=== PATIENT | female | born 1940 | race Caucasian/White ===

== ENCOUNTER 2016-12-26 10:00 | Outpatient (CLI) | payer MEDICARE ==
[~2016-12-26] VITALS: Ht 154.9 cm; Wt 88.9 kg
[~2016-12-26 10:00] MED LIST: ALPR0.2550 PO; AMIT10TA6 PO; ASP81CT PO; ATOR80TA PO; B12 INJECTION SQ; BACL10TA PO; CARV6.252 PO; CLOP75TA PO; CPR500T PO; DCS100C PO; DICY20TA10 PO; EZET10TA5 PO; FAMO20TA5 PO; FURO40TA4 PO; GABA100T PO; HC A28.3 PR; HYDR-229 PO; HYDR1TAB86 PO; LORA10TA2 PO; MELO-195 PO; NITR-65 PO; OMG1KC PO; OXYC-272 PO; OXYC1TAB25 PO; PNT40TEC PO; POLY119P PO; POTA10CA43 PO; PRED20TA PO; SERT100T PO; SPIR25TA3 PO; TOPI25TA2 PO; VITA1TAB22 PO
[2016-12-26] MEDS ORDERED: HYDR-3820 PO (10:21)
[2016-12-26] MEDS ORDERED: FURO40TA4 PO (10:21)
[2016-12-26] MEDS ORDERED: CANA100T PO (10:21)
[2016-12-26] MEDS ORDERED: CLOP75TA28 PO (10:21)
[2016-12-26] MEDS ORDERED: PANT40TA3 PO (10:21)
[2016-12-26] MEDS ORDERED: ALPR0.254 PO (10:21)
== END 2016-12-26 10:27 ==
LOC: PREOP 10:00
PROVIDERS: ATTEND Internal Medicine
DX: Z01.818 Encounter for other preprocedural examination (principal); R19.7 Diarrhea, unspecified; R10.9 Unspecified abdominal pain

== ENCOUNTER 2016-12-28 08:35 | Day surgery (SDC) | payer MEDICARE ==
[~2016-12-28] VITALS: Ht 154.9 cm; Wt 88.9 kg
--- NOTE | 2016-12-28 07:34 | HISTORY AND PHYSICAL ---
DATE OF SERVICE: DATE OF ADMISSION: 12/28/2016 HISTORY OF PRESENT ILLNESS: The patient is a 76-year-old white female, referred by Dr. Wong for consideration for colonoscopy. She reports that since September about every three weeks usually occurring on a Saturday she will have the onset of abdominal pain, tends to be lower and bilateral in nature and colicky in quality. She is not aware of any associated significant distention, but usually within an hour of the onset of her symptoms, she will then have multiple loose stools with relief of her abdominal pain. It is not associated with chills or fever. She cannot associate it with any specific dietary change. It last happened 2-1/2 weeks ago and she had not had anything for her evening meal, it tends to occur in the early to later evening and occasionally it will awaken her from sleep. There have been no medication changes associated and she denies melena, bright red blood per rectum, any associated hives, shortness of breath or chest discomfort. FAMILY HISTORY: She is not aware of any family history for allergic symptoms or GI tract malignancy. PAST MEDICAL HISTORY: Significant for coronary artery disease. She underwent stent placement in 2002 and has had no subsequent trouble. She has been on clopidogrel ever since. She has history of hyperlipidemia, hypertension and type 2 diabetes mellitus. She reports that her weight has been stable. I did perform an EGD on her little over 5 years ago. Her weight is down 6 pounds since that time and EGD evaluation revealed a small to moderate size hiatal hernia with erosive esophagitis without evidence for overt Haines's change. She has no associated epigastric discomfort, heartburn sensation or dysphagia. 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 She has a 40+ pack year smoking history, but quit in 2009. She has a past history of heavy drinking, but also quit in 2009. PAST SURGICAL HISTORY: Significant for right carotid endarterectomy only. She has had no abdominal surgery. PHYSICAL EXAMINATION: GENERAL: Reveals an obese white female, who appears to be in no acute distress. SKIN: Evaluation is pertinent for malar erythema that extends to the lower forehead, it spares the chin. There are no associated pustules or nodularity. It does naty and has been reportedly chronic for the past several years. MUSCULOSKELETAL: Joint evaluation reveals no evidence for arthralgia or synovitis. CHEST: Clear. CARDIOVASCULAR: Regular rate and rhythm without murmur, S3 or S4. ABDOMEN: Soft, supple without mass, organomegaly or tenderness. EXTREMITIES: Reveal no cyanosis, clubbing or edema. ASSESSMENT: For further investigation of episodic epigastric pain followed by diarrhea, she is set up for colonoscopy on 12/28/2016. Prep instructions with split dose Colyte were given and questions were answered. We did discuss the possibility of an allergic type reaction. She was advised as she reports she is due to have recurrent symptoms this weekend, to try Claritin 10 mg q.a.m. this Saturday, Saturday and Saturday. She will be holding clopidogrel 7 days prior to her procedure, continuing her other medications unchanged. With today's patient evaluation and review of her electronic medical record little over 45 minutes of care time was spent not including dictation time. Another 15 minutes of staff time in going over prep instructions during the procedure was performed as well. I thank you for the referral of this pleasant lady. Job ID: [id number] DocumentID: [id number] Dictated Date: 12/19/2016 19:53:21 Casting Machine Control Board Operator Date: 12/19/2016 20:41:01 Dictated By: HEATHER JEAN MD MTDD
[~2016-12-28 08:35] MED LIST changes: +ALPR0.254 PO; +CANA100T PO; +CLOP75TA28 PO; +HYDR-3820 PO; +PANT40TA3 PO
[2016-12-28] MEDS ORDERED: 1/2 NS IV SOLUTION 1,000 ML IV STA (08:38)
--- NOTE | 2016-12-28 08:43 | Pre-Op Note & Conscious Sedat ---
Pre-Operative Progress Note H&P Reviewed The H&P was reviewed, patient examined and no changes noted. Date H&P Reviewed: Dec 28, 2016 Time H&P Reviewed: 08:43 Conscious Sedation Pre-Proced ASA Class: 2 Airway Mallampati Classification: (southern ute appropriate class) I. II. III, IV Lungs Heart ASA score ASA 1: a normal healthy patient ASA 2: a patient with a mild systemic disease (mid diabetes, controlled hypertension, obesity ASA 3: a patient with a severe systemic disease that limits activity (angina , COPD, prior Myocardial infarction) ASA 4: a patient with an incapacitating disease that is a constant threat to life (CHF, renal failure) ASA 5: a moribund patient not expected to survive 24 hrs. (ruptured aneurysm) ASA 6: a declared brain patient whose organs are being harvested. For emergent operations, add the letter E after the classification Grade 3 Sedation Plan: Analgesia, Amnesia, Plan communicated to team members, Discussed options with patient/fam, Discussed risks with patient/fam Note The patient is an appropriate candidate to undergo the planned procedure, sedation, and anesthesia. The patient immediately re-assessed prior to indication. HEATHER JEAN MD Dec 28, 2016 08:43
[2016-12-28] MEDS ORDERED: LIDOCAINE JELLY 2% (XYLOCAINE) 5 ML TUBE MM PRN (08:45)
[2016-12-28 08:50] VITALS: BP 180/80
[2016-12-28] MEDS ORDERED: NORT25CA PO (09:05)
[2016-12-28] MEDS ORDERED: DAPA5TAB PO (09:05)
[2016-12-28] MEDS ORDERED: MULT-642 PO (09:05)
[2016-12-28] MEDS ORDERED: ROSU40TA20 PO (09:05)
[2016-12-28] MEDS ORDERED: MIDAZOLAM 2 MG/2 ML (VERSED) VIAL ONE ×2 (09:07→09:30)
[2016-12-28] MEDS ORDERED: fentaNYL INJECTION 100 MCG/2 ML AMP ONE (09:07)
[2016-12-28] MEDS ORDERED: LIDOCAINE JELLY 2% (XYLOCAINE) 5 ML TUBE ONE (09:08)
--- OUTSIDE RECORDS SUMMARY | 2016-12-28 09:20 | XMS REPORT ---
Author Author JENNIFER DEL RIO [facility] Address Unknown Care Team Providers Care Residential Substance Abuse Counselor Name Role Phone QUANG JENNIFER Unavailable PROBLEMS Unknown Problems ALLERGIES No Known Allergies SOCIAL HISTORY Never Assessed PLAN OF CARE Activity Details Follow Up prn Reason:PRN VITAL SIGNS MEDICATIONS Medication Instructions Dosage Frequency Start Date End Date Duration Status Hydrocodone-Acetaminophen Active Atorvastatin Calcium Active Aspir-81 Active Valium 5 MG 2 tablets night before and 2 tablets 1 hr before extraction Feb, 1 days Active Clopidogrel Bisulfate Active Furosemide Active Fareston Active Alprazolam Active Carvedilol Active Potassium Bicarb & Chloride Active Valium 5 MG take 2 tablets the night before and 2 tablets an hour prior to appt 0 days Active RESULTS No Results PROCEDURES Procedure Date Ordered Result Body Site Dental no charge Apr 25, 2016 IMMUNIZATIONS No Known Immunizations MEDICAL (GENERAL) HISTORY Type Description Date Medical History HBP Medical History Diabetes Type II Medical History Blood Thinner Medical History Heart Disease Surgical History 5 stents in heart 2009 Surgical History cordinatal artary 2012
--- OUTSIDE RECORDS SUMMARY | 2016-12-28 09:21 | XMS REPORT ---
Author Author JENNIFER DEL RIO [employer] Address Unknown Phone Unavailable Care Team Providers Care Gas Engine Performance Engineer Name Role Phone JENNIFER DEL RIO CP Unavailable Allergies, Adverse Reactions, Alerts Substance Reaction Event Type N.K.D.A. Info Not Available Non Drug Allergy Problems Problem Type Condition Code Onset Dates Condition Status Assessment Encounter for dental examination Z01.20 Active Medications Medication Code System Code Instructions Start Date End Date Status Dosage Valium [facility] [address]-51 5 MG Orally Feb 18, 2015 2 tablets night before and 2 tablets 1 hr before extraction Furosemide [facility] [address]-31 not defined Carvedilol [facility] [address]-87 not defined Aspir-81 [facility] [address]-23 not defined Hydrocodone-Acetaminophen [facility] [address]-66 not defined Atorvastatin Calcium [facility] [address]-36 not defined Alprazolam [facility] [address]-02 not defined Clopidogrel Bisulfate [facility] [address]-21 not defined Potassium Bicarb & Chloride [facility] [address]-46 not defined Procedures Procedure Coding System Code Date INTRAORL-PERIAPICAL 1 FILM 33533 CPT-4 D0220 Feb 18, 2015 INTRAORL-PERIAPICAL EA ADD FILM CPT-4 D0230 Feb 18, 2015 LTD ORAL EVALUATION - PROBLEM FOCUS CPT-4 D0140 Feb 18, 2015 INTRAORL-PERIAPICAL EA ADD FILM CPT-4 D0230 Feb 18, 2015 INTRAORL-PERIAPICAL EA ADD FILM CPT-4 D0230 Feb 18, 2015 PANORAMIC FILM SEE ALSO CODE [id number] CPT-4 D0330 Feb 18, 2015 INTRAORL-PERIAPICAL EA ADD FILM CPT-4 D0230 Feb 18, 2015 INTRAORL-PERIAPICAL EA ADD FILM CPT-4 D0230 Feb 18, 2015 INTRAORL-PERIAPICAL EA ADD FILM CPT-4 D0230 Feb 18, 2015 INTRAORL-PERIAPICAL EA ADD FILM CPT-4 D0230 Feb 18, 2015 Vital Signs Date/Time: Feb 18, 2015 Blood Pressure Diastolic 81 mmHg Blood Pressure Systolic 146 mmHg Results No Known Results Summary Purpose e[employer]Works Submission
--- OUTSIDE RECORDS SUMMARY | 2016-12-28 09:21 | XMS REPORT ---
Author Author JENNIFER DEL RIO Organization [facility] Address Unknown Care Team Providers Care Street Engineer Name Role Phone JENNIFER DEL RIO Unavailable PROBLEMS Unknown Problems ALLERGIES No Known Allergies SOCIAL HISTORY Never Assessed PLAN OF CARE Activity Details Follow Up prn Reason:keep TE appointment VITAL SIGNS MEDICATIONS Medication Instructions Dosage Frequency Start Date End Date Duration Status Alprazolam Active Clopidogrel Bisulfate Active Atorvastatin Calcium Active Aspir-81 Active Fareston Active Carvedilol Active Hydrocodone-Acetaminophen Active Potassium Bicarb & Chloride Active Furosemide Active Valium 5 MG 2 tablets night before and 2 tablets 1 hr before extraction Feb, 1 days Active Valium 5 MG take 2 tablets the night before and 2 tablets an hour prior to appt 0 days Active RESULTS No Results PROCEDURES Procedure Date Ordered Result Body Site Dental no charge Apr 17, 2016 IMMUNIZATIONS No Known Immunizations MEDICAL (GENERAL) HISTORY Type Description Date Medical History HBP Medical History Diabetes Type II Medical History Blood Thinner Medical History Heart Disease Surgical History 5 stents in heart 2009 Surgical History cordinatal artary 2012
--- OUTSIDE RECORDS SUMMARY | 2016-12-28 09:21 | XMS REPORT ---
Author Author JENNIFER DEL RIO Organization [facility] Address Unknown Care Team Providers Care Certified Energy Manager Name Role Phone JENNIFER DEL RIO Unavailable PROBLEMS Unknown Problems ALLERGIES Substance Reaction Event Type Date Status N.K.D.A. Unknown Non Drug Allergy Mar, Unknown SOCIAL HISTORY No smoking Hx information available PLAN OF CARE Activity Details Follow Up prn Reason:TE's VITAL SIGNS MEDICATIONS Medication Instructions Dosage Frequency Start Date End Date Duration Status Aspir-81 Active Hydrocodone-Acetaminophen Active Valium 5 MG take 2 tablets the night before and 2 tablets an hour prior to appt 0 days Active Furosemide Active Atorvastatin Calcium Active Valium 5 MG 2 tablets night before and 2 tablets 1 hr before extraction Feb, 1 days Active Fareston Active Alprazolam Active Potassium Bicarb & Chloride Active Clopidogrel Bisulfate Active Carvedilol Active RESULTS No Results PROCEDURES Procedure Date Ordered Related Diagnosis Body Site Dental no charge Mar 28, 2016 IMMUNIZATIONS No Known Immunizations
--- OUTSIDE RECORDS SUMMARY | 2016-12-28 09:21 | XMS REPORT ---
Author Author JENNIFER DEL RIO Organization [facility] Address Unknown Care Team Providers Care Date Night Sitter Name Role Phone JENNIFER DEL RIO Unavailable PROBLEMS Unknown Problems ALLERGIES Substance Reaction Event Type Date Status N.K.D.A. Unknown Non Drug Allergy Feb, Unknown SOCIAL HISTORY No smoking Hx information available PLAN OF CARE Activity Details Follow Up prn Reason:te 18 and 31 VITAL SIGNS Blood pressure systolic 123 mmHg 2016-03-01 Blood pressure diastolic 64 mmHg 2016-03-01 MEDICATIONS Medication Instructions Dosage Frequency Start Date End Date Duration Status Alprazolam Active Furosemide Active Carvedilol Active Valium 5 MG 2 tablets night before and 2 tablets 1 hr before extraction Feb, 1 days Active Fareston Active Clopidogrel Bisulfate Active Potassium Bicarb & Chloride Active Hydrocodone-Acetaminophen Active Atorvastatin Calcium Active Aspir-81 Active Valium 5 MG take 2 tablets the night before and 2 tablets an hour prior to appt 0 days Active RESULTS No Results PROCEDURES Procedure Date Ordered Related Diagnosis Body Site EXTRAC ERUPTED TOOTH/EXPOSED ROOT Mar 01, 2016 EXTRAC ERUPTED TOOTH/EXPOSED ROOT Mar 01, 2016 SURG REMOVAL ERUPTED TOOTH Mar 01, 2016 SURG REMOVAL ERUPTED TOOTH Mar 01, 2016 SURG REMOVAL ERUPTED TOOTH Mar 01, 2016 SURG REMOVAL ERUPTED TOOTH Mar 01, 2016 SURG REMOVAL ERUPTED TOOTH Mar 01, 2016 SURG REMOVAL ERUPTED TOOTH Mar 01, 2016 SURG REMOVAL ERUPTED TOOTH Mar 01, 2016 IMMUNIZATIONS No Known Immunizations
--- OUTSIDE RECORDS SUMMARY | 2016-12-28 09:21 | XMS REPORT ---
Author Author JENNIFER DEL RIO [facility] Address Unknown Care Team Providers Care Electric Tripper Machine Operator Name Role Phone JENNIFER DEL RIO Unavailable PROBLEMS Unknown Problems ALLERGIES No Information SOCIAL HISTORY Never Assessed PLAN OF CARE VITAL SIGNS MEDICATIONS Medication Instructions Dosage Frequency Start Date End Date Duration Status Valium 5 MG take 2 tablets the night before and 2 tablets an hour prior to appt 0 days Active RESULTS No Results PROCEDURES No Known procedures IMMUNIZATIONS No Known Immunizations MEDICAL (GENERAL) HISTORY Type Description Date Medical History HBP Medical History Diabetes Type II Medical History Blood Thinner Medical History Heart Disease Surgical History 5 stents in heart 2009 Surgical History cordinatal artary 2012
--- OUTSIDE RECORDS SUMMARY | 2016-12-28 09:21 | XMS REPORT ---
Author Author JENNIFER DEL RIO Organization [employer] Address Unknown Phone Unavailable Care Team Providers Care Welder Setter Electron Beam Machine Name Role Phone JENNIFER DEL RIO CP Unavailable Allergies, Adverse Reactions, Alerts Substance Reaction Event Type N.K.D.A. Info Not Available Non Drug Allergy Problems Problem Type Condition Code Onset Dates Condition Status Assessment Dental examination Z01.20 Active Medications Medication Code System Code Instructions Start Date End Date Status Dosage Atorvastatin Calcium [facility] [address]-60 not defined Aspir-81 [facility] [address]-48 not defined Fareston [facility] [address]-53 not defined Valium [facility] [address]-83 5 MG Orally Feb 18, 2015 2 tablets night before and 2 tablets 1 hr before extraction Carvedilol [facility] [address]-48 not defined Furosemide [facility] [address]-60 not defined Clopidogrel Bisulfate [facility] [address]-66 not defined Alprazolam [facility] [address]-18 not defined Potassium Bicarb & Chloride [facility] [address]-83 not defined Hydrocodone-Acetaminophen [facility] [address]-89 not defined Procedures Procedure Coding System Code Date LTD ORAL EVALUATION - PROBLEM FOCUS CPT-4 D0140 Dec 02, 2015 Results No Known Results Summary Purpose eClinicalWorks Submission
--- OUTSIDE RECORDS SUMMARY | 2016-12-28 09:21 | XMS REPORT | Continuity of Care Document ---
Author Author [facility] Organization [facility] Address Unknown Phone Unavailable Allergies Active Description Code Type Severity Reaction Onset Reported/Identified Relationship to Patient Clinical Status Yes adenosine [id number] Drug Allergy Unknown N/A 07/20/2008 Medications Problems Date Dx Coded Attending Type Code Diagnosis Diagnosed By 06/20/2014 SORAIDA ALATORRE Ot 724.5 07/04/2014 SORAIDA ALATORRE Ot 455.6 07/04/2014 SORAIDA ALATORRE Ot 578.1 08/01/2014 MULU VICENTE MD Ot 789.01 08/18/2014 MULU VICENTE MD Ot 789.01 Procedures Results Encounters ACCT No. Visit Date/Time Discharge Status Pt. Type Provider Facility Loc./Unit Complaint [id number] 07/05/2014 10:00:00 2014 23:59:59 CLS Preadmit MULU VICENTE MD [facility] CARD [id number] 07/04/2014 18:03:00 2014 21:58:00 DIS Emergency SORAIDA ALATORRE [facility] ER [id number] 06/25/2014 08:03:00 2014 23:59:59 CLS Outpatient MULU VICENTE MD [facility] RAD [id number] 06/20/2014 12:44:00 2014 17:30:00 DIS Emergency SORAIDA ALATORRE [facility] ER [id number] 01/06/2013 07:26:00 2012 12:45:00 DIS Outpatient
[2016-12-28] MEDS: fentaNYL INJECTION 100 MCG/2 ML AMP IVP PRN ×2 (09:22→09:30)
[2016-12-28] MEDS: MIDAZOLAM 2 MG/2 ML (VERSED) VIAL IVP PRN ×3 (09:23→09:35)
[2016-12-28 10:10] VITALS: BP 102/58
[2016-12-28 10:35] VITALS: BP 164/90
[2016-12-28 10:50] VITALS: BP 164/90
--- NOTE | 2016-12-28 20:43 | OPERATIVE REPORT ---
DATE OF SERVICE: COLONOSCOPY SUMMARY INDICATION FOR THE PROCEDURE: Diarrhea, intermittent with abdominal pain. The patient was placed in the left lateral decubitus position. Prior to undergoing colonoscopy, digital rectal evaluation was performed. Anal sphincter tone was normal and the perianal reflex was intact. No abnormalities, no additional inspection of the anal canal or distal rectal vault. The colonoscope was then inserted into the rectum under direct visualization, advanced to the cecum. The cecum was identified by identification of the ileocecal valve and cecal strap. Photographic documentation was obtained. Careful inspection was made as the colonoscope was withdrawn. The patient tolerated the procedure well with good prep. FINDINGS: There was no evidence for internal or external hemorrhoids. The rectum was unremarkable. A moderate number of small to medium size sigmoid diverticulum were present without evidence for diverticulitis. No other sigmoid colonic abnormalities were appreciated. The descending colon was unremarkable. Present in the mid transverse colon was a diminutive 4 x 5 mm sessile polyp. It was photographed and biopsied and ablated with no subsequent blood loss. The remainder of the transverse colon, hepatic flexure, ascending colon and cecum were unremarkable. ASSESSMENT: 1. Mild to moderate diverticular disease confined to the sigmoid colon was present without evidence for diverticulitis. 2. One diminutive polyp was removed from the transverse colon as noted above. No inflammatory change was noted. Considering the episodic nature of this patient's symptoms, it is possible this is secondary to a food intolerance or an intestinal allergic reaction. She had taken Claritin prior to last weekend as she stated that she was going to likely have another attack as it has been happening about every 3 weeks. This did not occur. She was advised she could take Claritin and Imodium at the onset of the future symptoms and she was reassured by today's findings. Considering her age and medical comorbidities, I would not recommend future surveillance colonoscopy. I thank you for the referral of this pleasant lady. Job ID: [id number] DocumentID: [id number] Dictated Date: 12/28/2016 10:28:25 Sewing Line Baler Date: 12/28/2016 20:43:21 Dictated By: HEATHER JEAN MD MTDMaria Del Rosario
== END 2016-12-28 10:50 | disposition home or self-care (01) ==
LOC: ENDO 08:35
PROVIDERS: ATTEND Internal Medicine
DX: R19.7 Diarrhea, unspecified (principal); K63.5 Polyp of colon; K57.30 Diverticulosis of large intestine without perforation or abscess without bleeding; I25.10 Atherosclerotic heart disease of native coronary artery without angina pectoris; E78.5 Hyperlipidemia, unspecified; I10 Essential (primary) hypertension; E11.9 Type 2 diabetes mellitus without complications; Z87.891 Personal history of nicotine dependence; Z95.5 Presence of coronary angioplasty implant and graft; Z79.899 Other long term (current) drug therapy

== ENCOUNTER 2017-04-07 16:12 | Emergency (ER) | payer MEDICARE ==
[~2017-04-07] VITALS: Ht 154.9 cm; Wt 72.6 kg
[~2017-04-07 16:12] MED LIST changes: +ASPI-999 PO; +CARV6.25 PO; +DAPA5TAB PO; +LISI-556 PO; +MELO15TA39 PO; +METO-370 PO; +MULT-642 PO; +NORT25CA PO; +ROSU40TA21 PO; +TOPI25TA10 PO
[2017-04-07] MEDS ORDERED: ASPIRIN 81 MG CHEW (CHILDREN'S ASA) PO ONE (16:30)
--- NOTE | 2017-04-07 17:02 | Diagnostic Imaging Report ---
Portable erect AP chest at 439 hours. INDICATION: Shortness of breath. FINDINGS: The borderline cardiomegaly and the prominent apical fat pad in the right cardiophrenic angle seen on the prior exam of 01/02/17 are again evident and no different. The lungs remain clear. There is still no sign of failure, pneumonia or pleural effusion to suggest an acute abnormality. The mediastinum is not widened. The osseous structures are intact. Surgical clips are again seen overlying the right neck. IMPRESSION: There is no evidence for an acute cardiopulmonary abnormality. Dictated by: Dictated on workstation # [id number]
[2017-04-07 17:10] LABS: BASOPHILS % (AUTO) 0 % (0-10); EOSINOPHILS # (AUTO) 0.1 10^3/uL (0.0-0.3); EOSINOPHILS % (AUTO) 1 % (0-10); HEMATOCRIT 38 % (35-52); HEMOGLOBIN 12.3 G/DL (11.5-16.0); LYMPHOCYTES # (AUTO) 2.2 X 10^3 (1.0-4.0); LYMPHOCYTES % (AUTO) 26 % (12-44); MEAN CORPUSCULAR HEMOGLOBIN 30 PG (25-34); MEAN CORPUSCULAR HGB CONC 32 G/DL (32-36); MEAN CORPUSCULAR VOLUME 93 FL (80-99); MEAN PLATELET VOLUME 9.9 FL (7.4-10.4); MONOCYTES # (AUTO) 0.7 X 10^3 (0.0-1.0); MONOCYTES % (AUTO) 9 % (0-12); NEUTROPHILS # (AUTO) 5.3 X 10^3 (1.8-7.8); NEUTROPHILS % (AUTO) 64 % (42-75); PLATELET COUNT 271 10^3/uL (130-400); RED BLOOD COUNT 4.11 10^6/uL (4.35-5.85); RED CELL DISTRIBUTION WIDTH 14.6 % (10.0-14.5); WHITE BLOOD COUNT 8.2 10^3/uL (4.3-11.0)
--- NOTE | 2017-04-07 17:22 | ED General ---
General Chief Complaint: General Problems/Pain Stated Complaint: BODY TINGLING/HOT FLASHES Nursing Triage Note: Pt had episode of feeling skaky and diaphoretic. Pt was concerned it was her heart. Had pancakes for supper and has not at since then. Nursing Sepsis Screen: No Definite Risk Source of Information: Patient Exam Limitations: No Limitations History of Present Illness Date Seen by Provider: Apr 07, 2017 Time Seen by Provider: 16:22 Initial Comments This 77-year-old woman presents to the emergency room with acute onset of feeling hot, diaphoretic, and tingling in her extremities. She is concerned she may be having a heart issue. She reports prior history of CO and cardiac stenting. She denies any chest pain during this episode. She also had a similar episode on Saturday. She is a diabetic but did not check her blood sugar at the time of the event nor on the prior event. Her fingerstick blood sugar was 73. Allergies and Home Medications Allergies Coded Allergies: adenosine (Verified Adverse Reaction, Mild, 01/02/17) FLUSHED/NAUSEA Home Medications Alprazolam 0.25 Mg Tablet, 0.25 MG PO DAILY, (Reported) Aspirin 81 Mg Tab.chew, 81 MG PO DAILY, #30 Ref 5 Prescribed by: AAKASH LAZCANO on 01/04/1736 Clopidogrel Bisulfate 75 Mg Tablet, 75 MG PO DAILY, (Reported) Dapagliflozin Propanediol 5 Mg Tablet, 5 MG PO DAILY, (Reported) Furosemide 40 Mg Tablet, 40 MG PO DAILY, (Reported) Hydrocodone/Acetaminophen 1 Each Tablet, 1 TAB PO Q4H PRN for PAIN-MODERATE, ( Reported) Lisinopril 5 Mg Tablet, 5 MG PO DAILY@0900, #30 Ref 5 Prescribed by: AAKASH LAZCANO on 01/04/17 0836 Metoprolol Succinate 50 Mg Tab.er.24h, 50 MG PO DAILY, #30 Ref 5 Prescribed by: AAKASH LAZCANO on 01/04/1736 Multivitamin 1 Each Tablet, 1 TAB PO DAILY, (Reported) Nortriptyline HCl 25 Mg Capsule, 25 MG PO HS, (Reported) Pantoprazole Sodium 40 Mg Tablet.dr, 40 MG PO DAILY, (Reported) Rosuvastatin Calcium 40 Mg Tablet, 40 MG PO HS, (Reported) Topiramate 25 Mg Tablet, 25 MG PO BID, (Reported) Constitutional: see HPI EENTM: no symptoms reported Respiratory: no symptoms reported Cardiovascular: no symptoms reported Gastrointestinal: no symptoms reported Musculoskeletal: no symptoms reported Skin: no symptoms reported Psychiatric/Neurological: See HPI Hematologic/Lymphatic: No Symptoms Reported Past Xndpqyv-[id number]-[id number] Hx Patient Social History Alcohol Use: Denies Use Recreational Drug Use: No Smoking Status: Former Smoker Former Smoker, Quit: Dec 26, 2009 Recent Foreign Travel: No Contact w/Someone Who Travel: No Recent Infectious Disease Expo: No Recent Hopitalizations: No Immunizations Up To Date Date of Pneumonia Vaccine: Jan 06, 2013 Date of Influenza Vaccine: Dec 17, 2016 Seasonal Allergies Seasonal Allergies: No Surgeries History of Surgeries: Yes (STENTS X5, CAROTID) Surgeries: Coronary Stent Respiratory History of Respiratory Disorde: No Cardiovascular History of Cardiac Disorders: Yes Cardiac Disorders: Coronary Artery Disease, Heart Murmur, High Cholesterol, Hypertension Neurological History of Neurological Disord: No Reproductive System Hx Reproductive Disorders: No Sexually Transmitted Disease: No HIV/AIDS: No Genitourinary History of Genitourinary Disor: Yes Genitourinary Disorders: Kidney Stones Gastrointestinal History of Gastrointestinal Di: Yes (ABDOMINAL PAIN) Gastrointestinal Disorders: Chronic Diarrhea Musculoskeletal History of Musculoskeletal Dis: Yes Musculoskeletal Disorders: Arthritis, Chronic Back Pain Endocrine History of Endocrine Disorders: Yes HEENT History of HEENT Disorders: No Loss of Vision: Denies Hearing Impairment: Denies Cancer History of Cancer: No Psychosocial History of Psychiatric Problem: Yes Behavioral Health Disorders: Anxiety Integumentary History of Skin or Integumenta: No Blood Transfusions History of Blood Disorders: No Adverse Reaction to a Blood Tr: No Family Medical History Significant Family History: No Pertinent Family Hx Family Medial History: Arthritis 19 FATHER 19 MOTHER G8 BROTHER G8 SISTER G8 SISTER Cardiovascular disease 19 MOTHER Diabetes mellitus 19 MOTHER G8 SISTER G8 SISTER Myocardial infarction G8 SISTER Parkinson's disease G8 SISTER Physical Exam Vital Signs Vital Sign - Last 12Hours Capillary Refill : Less Than 3 Seconds General Appearance: No Apparent Distress, WD/WN HEENT: PERRL/EOMI, Normal ENT Inspection, Pharynx Normal Neck: Supple Respiratory: Lungs Clear, Normal Breath Sounds, No Accessory Muscle Use, No Respiratory Distress Cardiovascular: Regular Rate, Rhythm, No Edema, No Murmur Gastrointestinal: Normal Bowel Sounds, Non Tender, Soft Extremity: Normal Inspection, No Pedal Edema Neurologic/Psychiatric: Alert, Oriented x3, No Motor/Sensory Deficits, Normal Mood/Affect, office secretary II-XII Norm as Tested Skin: Normal Color, Warm/Dry Progress/Results/Core Measures Suspected Sepsis Recent Fever Within 48 Hours: No Infection Criteria Present: None New/Unexplained Altered Menta: No Sepsis Screen: No Definite Risk Sepsis Diagnosis: SIRS Temperature:97.5 Pulse: 64 Respiratory Rate: 16 Laboratory Tests 04/07/17 17:03: White Blood Count 8.2 Blood Pressure 136 /53 Mean: 80 Laboratory Tests 04/07/17 17:03: Creatinine 1.42H, INR Comment 1.0, Platelet Count 271, Total Bilirubin 0.2 Results/Orders Lab Results Laboratory Tests Test 04/07/17 16:32 04/07/17 17:03 Range/Units Glucometer 73 70-110 MG/DL White Blood Count 8.2 4.3-11.0 10^3/uL Red Blood Count 4.11 L 4.35-5.85 10^6/uL Hemoglobin 12.3 11.5-16.0 G/DL Hematocrit 38 35-52 % Mean Corpuscular Volume 93 80-99 FL Mean Corpuscular Hemoglobin 30 25-34 PG Mean Corpuscular Hemoglobin Concent 32 32-36 G/DL Red Cell Distribution Width 14.6 H 10.0-14.5 % Platelet Count 271 130-400 10^3/uL Mean Platelet Volume 9.9 7.4-10.4 FL Neutrophils (%) (Auto) 64 42-75 % Lymphocytes (%) (Auto) 26 12-44 % Monocytes (%) (Auto) 9 0-12 % Eosinophils (%) (Auto) 1 0-10 % Basophils (%) (Auto) 0 0-10 % Neutrophils # (Auto) 5.3 1.8-7.8 X 10^3 Lymphocytes # (Auto) 2.2 1.0-4.0 X 10^3 Monocytes # (Auto) 0.7 0.0-1.0 X 10^3 Eosinophils # (Auto) 0.1 0.0-0.3 10^3/uL Basophils # (Auto) 0.0 0.0-0.1 10^3/uL Prothrombin Time 13.0 12.2-14.7 SEC INR Comment 1.0 0.8-1.4 Activated Partial Thromboplast Time 26 24-35 SEC Sodium Level 140 135-145 MMOL/L Potassium Level 4.3 3.6-5.0 MMOL/L Chloride Level 104 98-107 MMOL/L Carbon Dioxide Level 27 21-32 MMOL/L Anion Gap 9 5-14 MMOL/L Blood Urea Nitrogen 35 H 7-18 MG/DL Creatinine 1.42 H 0.60-1.30 MG/DL Estimat Glomerular Filtration Rate 36 BUN/Creatinine Ratio 25 Glucose Level 91 70-105 MG/DL Calcium Level 9.2 8.5-10.1 MG/DL Magnesium Level 2.8 H 1.8-2.4 MG/DL Total Bilirubin 0.2 0.1-1.0 MG/DL Aspartate Amino Transf (AST/SGOT) 22 5-34 U/L Alanine Aminotransferase (ALT/SGPT) 20 0-55 U/L Alkaline Phosphatase 62 40-136 U/L Myoglobin 47.1 10.0-92.0 NG/ML Troponin I < 0.30 <0.30 NG/ML Total Protein 7.3 6.4-8.2 GM/DL Albumin 4.0 3.2-4.5 GM/DL TSH [place] Testing 1.24 0.35-4.94 UIU/ML My Orders Orders - BAM HERNÁNDEZ MD Ekg Tracing (04/07/17 16:22) Monitor-Rhythm Ecg Trace Only (04/07/17 16:22) Cbc With Automated Diff (04/07/17 16:25) Magnesium (04/07/17 16:25) Chest 1 View, Ap/Pa Only (04/07/17 16:25) Cardiac Profile 1 (04/07/17 16:25) Comprehensive Metabolic Panel (04/07/17 16:25) Myoglobin Serum (04/07/17 16:25) Protime With Inr (04/07/17 16:25) Partial Thromboplastin Time (04/07/17 16:25) O2 (04/07/17 16:25) Lipid Panel (04/08/17 06:00) Aspirin Chewable Tablet (Baby Aspirin Ch (04/07/17 16:30) Saline Lock/Iv-Start (04/07/17 16:25) Thyroid Analyzer (04/07/17 16:25) Accucheck Stat ONCE (04/07/17 16:27) Medications Given in ED Current Medications Medications Dose Ordered Sig/Wilver Route Start Time Stop Time Status Last Admin Dose Admin Aspirin 324 mg ONCE ONCE PO 04/07/17 16:30 04/07/17 16:31 DC 04/07/17 16:54 324 MG Vital Signs/I&O Vital Sign - Last 12Hours 04/07/17 04/07/17 16:54 16:54 Temp 97.5 97.5 Pulse 64 Resp 16 B/P (MAP) 136/53 (80) Pulse Ox 98 O2 Delivery Room Air Capillary Refill : Less Than 3 Seconds Blood Pressure Mean: 80 Point of Care Testing Finger Stick Blood Glucose: 73 Progress Note : Progress Note Patient was improving by the time of assessment. She had relative hypoglycemia with a blood sugar of 73. She was given crackers and water and felt better after that. Cardiac workup was negative. Creatinine was a little bumped and patient was advised to drink more fluids. We discussed monitoring her blood sugars which she has not been doing. I advised checking blood sugars fasting in the morning and 2 hours after meals on 3 days per week and presenting those to Dr. Vicente. ECG Initial ECG Impression Date: Apr 07, 2017 Initial ECG Impression Time: 16:26 Initial ECG Rate: 60 Initial ECG Rhythm: Normal Sinus Initial ECG Intervals: Normal Initial ECG Impression: Normal Comment Normal sinus rhythm with no ST elevation or depression. Normal normal intervals or axis deviation. Diagnostic Imaging Diagonstic Imaging: Xray Plain Films/CT/US/NM/MRI: chest Comments Chest x-ray viewed by me and report reviewed. See report below: NAME: ELLEN CASTILLO [facility] REC#: [id number] PT STATUS: REG ER : 1940 PHYSICIAN: BAM HERNÁNDEZ MD ADMIT DATE: 04/07/17/ER Draft Date of Exam:04/07/17 CHEST 1 VIEW, AP/PA ONLY Portable erect AP chest at 439 hours. INDICATION: Shortness of breath. FINDINGS: The borderline cardiomegaly and the prominent apical fat pad in the right cardiophrenic angle seen on the prior exam of 01/02/17 are again evident and no different. The lungs remain clear. There is still no sign of failure, pneumonia or pleural effusion to suggest an acute abnormality. The mediastinum is not widened. The osseous structures are intact. Surgical clips are again seen overlying the right neck. IMPRESSION: There is no evidence for an acute cardiopulmonary abnormality. Dictated on workstation # [id number] Dict: 04/07/17 1658 Trans: 04/07/17 1702 [id number] Interpreted by: LUCINA GEE MD Departure Impression Impression: Primary Impression: Diaphoresis Additional Impressions: Hypoglycemia Renal insufficiency Disposition: HOME, SELF-CARE Condition: Improved Departure-Patient Inst. Decision time for Depature: 18:00 Referrals: MULU VICENTE MD (PCP/Family) Primary Care Physician Patient Instructions: HYPOGLYCEMIA Add. Discharge Instructions: Follow-up with your primary care provider soon as possible. If you have another episode, check your blood sugar immediately. If you are not hypoglycemic (low blood sugar) or if you're hypoglycemic and consuming carbohydrates does not improve your condition, then return to the emergency room. Your kidney function is down just a little bit. Please increase your water intake and follow up with your doctor. All discharge instructions reviewed with patient and/or family. Voiced understanding. Copy Copies To 1: MULU VICENTE MD, JOSHUA T MD Apr 07, 2017 17:22
[2017-04-07 17:29] LABS: ALANINE AMINOTRANSFERASE 20 U/L (0-55); ALKALINE PHOSPHATASE 62 U/L (40-136); BILIRUBIN,TOTAL 0.2 MG/DL (0.1-1.0); BUN/CREATININE RATIO 25; CALCIUM 9.2 MG/DL (8.5-10.1); CARBON DIOXIDE 27 MMOL/L (21-32); CHLORIDE 104 MMOL/L (98-107); CREATININE SERUM 1.42 MG/DL (0.60-1.30); GFR ESTIMATED 36; GLUCOSE 91 MG/DL (70-105); MAGNESIUM 2.8 MG/DL (1.8-2.4); POTASSIUM 4.3 MMOL/L (3.6-5.0); SODIUM 140 MMOL/L (135-145); TOTAL PROTEIN 7.3 GM/DL (6.4-8.2)
[2017-04-07 17:36] LABS: MYOGLOBIN SERUM 47.1 NG/ML (10.0-92.0)
[2017-04-07 18:21] VITALS: BP 138/60
== END 2017-04-07 18:21 | disposition home or self-care (01) ==
LOC: EDUNIT# 16:12 → ER 16:15
DX: R61 Generalized hyperhidrosis (principal); E11.649 Type 2 diabetes mellitus with hypoglycemia without coma; N28.9 Disorder of kidney and ureter, unspecified; F41.9 Anxiety disorder, unspecified; I25.10 Atherosclerotic heart disease of native coronary artery without angina pectoris; E78.00 Pure hypercholesterolemia, unspecified; I10 Essential (primary) hypertension; I25.2 Old myocardial infarction; Z87.891 Personal history of nicotine dependence; Z87.442 Personal history of urinary calculi; Z95.5 Presence of coronary angioplasty implant and graft; Z79.82 Long term (current) use of aspirin; Z88.8 Allergy status to other drugs, medicaments and biological substances
CPT/HCPCS: 36415; 71045; 80053; 82962; 83735; 83874; 84443; 84484; 85025; 85610; 85730; 93041

== ENCOUNTER 2017-04-21 15:29 | Emergency (ER) | payer MEDICARE ==
[~2017-04-21] VITALS: Ht 154.9 cm; Wt 87.1 kg
--- OUTSIDE RECORDS SUMMARY | 2017-04-21 15:36 | XMS REPORT | Continuity of Care Document ---
Author Author [facility] Organization [facility] Address Unknown Phone Unavailable Allergies Active Description Code Type Severity Reaction Onset Reported/Identified Relationship to Patient Clinical Status Yes adenosine [id number] Drug Allergy Unknown N/A 12/26/2016 Yes adenosine [id number] Drug Allergy Mild N/A 01/02/2017 Medications There is no data. Problems Date Dx Coded Attending Type Code Diagnosis Diagnosed By 09/04/2011 Ot 535.40 OTH SPECIFIED GASTRITIS,W/O MENTION OF H 09/04/2011 Ot 553.3 DIAPHRAGMATIC HERNIA 06/13/2012 Ot 719.41 JOINT PAIN- SHLDER 06/13/2012 Ot V57.1 PHYSICAL THERAPY NEC 01/06/2013 AMOL QUINTERO MD, FACC FACP CCDS Ot 272.4 HYPERLIPIDEMIA NEC/NOS 01/06/2013 AMOL QUINTERO MD, FACC FACP CCDS Ot 278.00 OBESITY, NOS 01/06/2013 AMOL QUINTERO MD, FACC FACP CCDS Ot 327.23 OBSTRUCTIVE SLEEP APNEA (ADULT) (PEDIATR 01/06/2013 AMOL QUINTERO MD, FACC FACP CCDS Ot 414.01 CORONARY ATHEROSCLEROSIS OF [place] CORON 01/06/2013 AMOL QUINTERO MD, FACC FACP CCDS Ot 414.4 CORONARY ATHEROSCLEROSIS DUE TO CALCIF[place] 01/06/2013 AMOL QUINTERO MD, FACC FACP CCDS Ot 416.8 CHR PULMON HEART DIS NEC 01/06/2013 AMOL QUINTERO MD, FACC FACP CCDS Ot 530.81 ESOPHAGEAL REFLUX 01/06/2013 AMOL QUINTERO MD, FACC FACP CCDS Ot 585.9 CHRONIC KIDNEY DISEASE, UNSPECIFIED 01/06/2013 AMOL QUINTERO MD, FACC FACP CCDS Ot 786.09 RESPIRATORY ABNORM NEC 01/06/2013 AMOL QUINTERO MD, FACC FACP CCDS Ot 786.59 CHEST PAIN NEC 01/06/2013 AMOL QUINTERO MD, FACC FACP CCDS Ot V03.82 PROPHYLACTIC VACC AGAINST STREPTOCOCCUS 01/06/2013 [facility]ON SP[facility]ER [facility] Ot V15.82 HISTORY OF TOBACCO USE 01/06/2013 [facility]ON MARRERO, [facility] Ot V45.82 PERCUTANEOUS TRANSLUM CORON ANGIOPLASTY 01/06/2013 LEON MARRERO, ALI FACP CCDS Ot V58.63 LONG-TERM(CURRENT)USE OF ANTIPLATELET/AN 01/06/2013 LEON SPICER [facility], [facility] CCDS Ot V58.69 OTH MED,LT,CURRENT USE 01/06/2013 [facility]ON [facility]ICER [facility] CCDS Ot V85.37 BODY MASS INDEX 37.0-37.9, ADULT 06/20/2014 SORAIDA ALATORRE Ot 724.5 BACKACHE NOS 07/04/2014 SORAIDA ALATORRE Ot 455.6 HEMORRHOIDS NOS 07/04/2014 SORAIDA ALATORRE Ot 578.1 BLOOD IN STOOL 08/01/2014 JULES SPICER, MULU Mix Ot 789.01 08/18/2014 MULU VICENTE MD Ot 789.01 12/24/2016 Ot V72.84 EXAM PRE- OPERATIVE NOS 12/24/2016 MULU VICENTE MD Ot 789.01 ABDOMINAL PAIN, RIGHT UPPER QUADRANT 12/25/2016 Ot V72.84 EXAM PRE- OPERATIVE NOS 12/25/2016 MULU VICENTE MD Ot 789.01 ABDOMINAL PAIN, RIGHT UPPER QUADRANT 12/26/2016 HEATHER JEAN MD Ot R10.9 UNSPECIFIED ABDOMINAL PAIN 12/26/2016 HEATHER JEAN MD Ot R19.7 DIARRHEA, UNSPECIFIED 12/26/2016 HEATHER JEAN MD Ot Z01.818 ENCOUNTER FOR OTHER PREPROCEDURAL EXAMIN 12/26/2016 HEATHER JEAN MD Ot R10.9 UNSPECIFIED ABDOMINAL PAIN 12/26/2016 HEATHER JEAN MD Ot R19.7 DIARRHEA, UNSPECIFIED 12/26/2016 HEATHER JEAN MD Ot Z01.818 ENCOUNTER FOR OTHER PREPROCEDURAL EXAMIN 12/28/2016 Ot V72.84 EXAM PRE- OPERATIVE NOS 12/28/2016 MULU VICENTE MD Ot 789.01 ABDOMINAL PAIN, RIGHT UPPER QUADRANT 12/28/2016 HEATHER JEAN MD Ot E11.9 TYPE 2 DIABETES MELLITUS WITHOUT COMPLIC 12/28/2016 TED SPICER, HEATHER Mix Ot E78.5 HYPERLIPIDEMIA, UNSPECIFIED 12/28/2016 HEATHER JEAN MD Ot I10 ESSENTIAL (PRIMARY) HYPERTENSION 12/28/2016 HEATHER JEAN MD Ot I25.10 ATHSCL HEART DISEASE OF [place] CORONARY 12/28/2016 HEATHER JEAN MD Ot K57.30 DVRTCLOS OF LG INT W/O PERFORATION OR AB 12/28/2016 HEATHER JEAN MD Ot K63.5 POLYP OF COLON 12/28/2016 HEATHER JEAN MD Ot R19.7 DIARRHEA, UNSPECIFIED 12/28/2016 HEATHER JEAN MD Ot Z79.899 OTHER JAIL (CURRENT) DRUG THERAPY 12/28/2016 HEATHER JEAN MD, Ot Z87.891 PERSONAL HISTORY OF NICOTINE DEPENDENCE 12/28/2016 HEATHER JEAN MD Ot Z95.5 PRESENCE OF CORONARY ANGIOPLASTY IMPLANT 01/02/2017 Ot V72.84 EXAM PRE- OPERATIVE NOS 01/02/2017 JULES SPICER, MULU Mix Ot 789.01 ABDOMINAL PAIN, RIGHT UPPER QUADRANT 01/03/2017 Ot V72.84 EXAM PRE- OPERATIVE NOS 01/03/2017 JULES SPICER, MULU Mix Ot 789.01 ABDOMINAL PAIN, RIGHT UPPER QUADRANT 2017 YANY ROWLAND DO Ot E11.22 TYPE 2 DIABETES MELLITUS W DIABETIC MEDICAL RECORDS SPECIALIST 2017 HANNAH ROWLAND DOI Ot E66.9 OBESITY, UNSPECIFIED [address] YANY Ot E78.00 PURE HYPERCHOLESTEROLEMIA, UNSPECIFIED 2017 [place] DOI Ot F41.9 ANXIETY DISORDER, UNSPECIFIED [address] YANY Ot G47.33 OBSTRUCTIVE SLEEP APNEA (ADULT) (PEDIATR [address] YANY Ot I10 ESSENTIAL (PRIMARY) HYPERTENSION 2017 HANNAH ROWLAND DOI Ot I21.4 NON-ST ELEVATION (NSTEMI) MYOCARDIAL INF 2017 HANNAH ROWLAND DOI Ot I25.118 ATHSCL HEART DISEASE OF [place] COR ART W [address] YANY Ot I27.20 PULMONARY HYPERTENSION, UNSPECIFIED [address] YANY Ot I73.9 PERIPHERAL VASCULAR DISEASE, UNSPECIFIED [address] YANY Ot I87.2 VENOUS INSUFFICIENCY (CHRONIC) (PERIPHER 2017 HANNAH ROWLAND DOI Ot I97.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 2017 HANNAH ROWLAND DOI Ot J45.909 UNSPECIFIED ASTHMA, UNCOMPLICATED [address] YANY Ot J98.4 OTHER DISORDERS OF LUNG 2017 HANNAH ROWLAND DOI Ot M19.91 PRIMARY OSTEOARTHRITIS, UNSPECIFIED SITE [address] YANY Ot M54.9 DORSALGIA, UNSPECIFIED [address] YANY Ot N18.3 CHRONIC KIDNEY DISEASE, STAGE 3 (MODERAT [address] YANY Ot Z68.33 BODY MASS INDEX (BMI) 33.0-33.9, ADULT [address] YANY Ot Z87.442 PERSONAL HISTORY OF URINARY CALCULI 2017 HANNAH ROWLAND DOI Ot Z87.891 PERSONAL HISTORY OF NICOTINE DEPENDENCE [address] YANY Ot Z95.5 PRESENCE OF CORONARY ANGIOPLASTY IMPLANT 01/07/[address] YANY Ot E11.22 TYPE 2 DIABETES MELLITUS W DIABETIC MEDICAL RECORDS SPECIALIST 01/07/[address] YANY Ot E66.9 OBESITY, UNSPECIFIED 01/07/[address] YANY Ot E78.00 PURE HYPERCHOLESTEROLEMIA, UNSPECIFIED 01/07/[address] YANY Ot F41.9 ANXIETY DISORDER, UNSPECIFIED 01/07/[address] YANY Ot G47.33 OBSTRUCTIVE SLEEP APNEA (ADULT) (PEDIATR 01/07/[address] YANY Ot I10 ESSENTIAL (PRIMARY) HYPERTENSION 01/07/[address] YANY Ot I21.4 NON-ST ELEVATION (NSTEMI) MYOCARDIAL INF 01/07/[address] YANY Ot I25.118 ATHSCL HEART DISEASE OF [place] COR ART W 01/07/[address] YANY Ot I27.20 PULMONARY HYPERTENSION, UNSPECIFIED 01/07/[address] YANY Ot I73.9 PERIPHERAL VASCULAR DISEASE, UNSPECIFIED 01/07/[address] YANY Ot I87.2 VENOUS INSUFFICIENCY (CHRONIC) (PERIPHER 01/07/[address] YANY Ot J45.909 UNSPECIFIED ASTHMA, UNCOMPLICATED 01/07/[address] YANY Ot J98.4 OTHER DISORDERS OF LUNG 01/07/[address] YANY Ot M19.91 PRIMARY OSTEOARTHRITIS, UNSPECIFIED SITE 01/07/[address] YANY Ot M54.9 DORSALGIA, UNSPECIFIED 01/07/[address] YANY Ot N18.3 CHRONIC KIDNEY DISEASE, STAGE 3 (MODERAT 01/07/[address] YANY Ot Z68.33 BODY MASS INDEX (BMI) 33.0-33.9, ADULT 01/07/[address] YANY Ot Z87.442 PERSONAL HISTORY OF URINARY CALCULI 01/07/[address] YANY Ot Z87.891 PERSONAL HISTORY OF NICOTINE DEPENDENCE 01/07/[address] YANY Ot Z95.5 PRESENCE OF CORONARY ANGIOPLASTY IMPLANT 01/07/2017 HANNAH ROWLAND DOI Ot E11.22 TYPE 2 DIABETES MELLITUS W DIABETIC MEDICAL RECORDS SPECIALIST 01/07/[address] YANY Ot E66.9 OBESITY, UNSPECIFIED 01/07/[address] YANY Ot E78.00 PURE HYPERCHOLESTEROLEMIA, UNSPECIFIED 01/07/[address] YANY Ot F41.9 ANXIETY DISORDER, UNSPECIFIED 01/07/[address] YANY Ot G47.33 OBSTRUCTIVE SLEEP APNEA (ADULT) (PEDIATR 01/07/[address] YANY Ot I10 ESSENTIAL (PRIMARY) HYPERTENSION 01/07/[address] YANY Ot I21.4 NON-ST ELEVATION (NSTEMI) MYOCARDIAL INF 01/07/[address] YANY Ot I25.118 ATHSCL HEART DISEASE OF [place] COR ART W 01/07/[address] YANY Ot I27.20 PULMONARY HYPERTENSION, UNSPECIFIED 01/07/[address] YANY Ot I73.9 PERIPHERAL VASCULAR DISEASE, UNSPECIFIED 01/07/[address] YANY Ot I87.2 VENOUS INSUFFICIENCY (CHRONIC) (PERIPHER 01/07/[address] YANY Ot J45.909 UNSPECIFIED ASTHMA, UNCOMPLICATED 01/07/[address] YANY Ot J98.4 OTHER DISORDERS OF LUNG 01/07/[address] YANY Ot M19.91 PRIMARY OSTEOARTHRITIS, UNSPECIFIED SITE 01/07/[address] YANY Ot M54.9 DORSALGIA, UNSPECIFIED 01/07/[address] YANY Ot N18.3 CHRONIC KIDNEY DISEASE, STAGE 3 (MODERAT 01/07/[address] YANY Ot Z68.33 BODY MASS INDEX (BMI) 33.0-33.9, ADULT 01/07/[address] YANY Ot Z87.442 PERSONAL HISTORY OF URINARY CALCULI 01/07/[address] YANY Ot Z87.891 PERSONAL HISTORY OF NICOTINE DEPENDENCE 01/07/[address] YANY Ot Z95.5 PRESENCE OF CORONARY ANGIOPLASTY IMPLANT 01/07/[address] YANY Ot E11.22 TYPE 2 DIABETES MELLITUS W DIABETIC MEDICAL RECORDS SPECIALIST 01/07/[address] YANY Ot E66.9 OBESITY, UNSPECIFIED 01/07/[address] YANY Ot E78.00 PURE HYPERCHOLESTEROLEMIA, UNSPECIFIED 01/07/[address] YANY Ot F41.9 ANXIETY DISORDER, UNSPECIFIED 01/07/[address] YANY Ot G47.33 OBSTRUCTIVE SLEEP APNEA (ADULT) (PEDIATR 01/07/[address] YANY Ot I10 ESSENTIAL (PRIMARY) HYPERTENSION 01/07/[address] YANY Ot I21.4 NON-ST ELEVATION (NSTEMI) MYOCARDIAL INF 01/07/[address] YANY Ot I25.118 ATHSCL HEART DISEASE OF [place] COR ART W 01/07/[address] YANY Ot I27.20 PULMONARY HYPERTENSION, UNSPECIFIED 01/07/[address] YANY Ot I73.9 PERIPHERAL VASCULAR DISEASE, UNSPECIFIED 01/07/[address] YANY Ot I87.2 VENOUS INSUFFICIENCY (CHRONIC) (PERIPHER 01/07/[address] YANY Ot J45.909 UNSPECIFIED ASTHMA, UNCOMPLICATED 01/07/[address] YANY Ot J98.4 OTHER DISORDERS OF LUNG 01/07/[address] YANY Ot M19.91 PRIMARY OSTEOARTHRITIS, UNSPECIFIED SITE 01/07/[address] YANY Ot M54.9 DORSALGIA, UNSPECIFIED 01/07/[address] YANY Ot N18.3 CHRONIC KIDNEY DISEASE, STAGE 3 (MODERAT 01/07/[address] YANY Ot Z68.33 BODY MASS INDEX (BMI) 33.0-33.9, ADULT 01/07/[address] YANY Ot Z87.442 PERSONAL HISTORY OF URINARY CALCULI 01/07/[address] YANY Ot Z87.891 PERSONAL HISTORY OF NICOTINE DEPENDENCE 01/07/[address] YANY Ot Z95.5 PRESENCE OF CORONARY ANGIOPLASTY IMPLANT 01/07/[address] YANY Ot E11.22 TYPE 2 DIABETES MELLITUS W DIABETIC MEDICAL RECORDS SPECIALIST 01/07/[address] YANY Ot E66.9 OBESITY, UNSPECIFIED 01/07/[address] YANY Ot E78.00 PURE HYPERCHOLESTEROLEMIA, UNSPECIFIED 01/07/[address] YANY Ot F41.9 ANXIETY DISORDER, UNSPECIFIED 01/07/[address] YANY Ot G47.33 OBSTRUCTIVE SLEEP APNEA (ADULT) (PEDIATR 01/07/[address] YANY Ot I10 ESSENTIAL (PRIMARY) HYPERTENSION 01/07/[address] YANY Ot I21.4 NON-ST ELEVATION (NSTEMI) MYOCARDIAL INF 01/07/[address] YANY Ot I25.118 ATHSCL HEART DISEASE OF [place] COR ART W 01/07/[address] YANY Ot I27.20 PULMONARY HYPERTENSION, UNSPECIFIED 01/07/[address] YANY Ot I73.9 PERIPHERAL VASCULAR DISEASE, UNSPECIFIED 01/07/[address] YANY Ot I87.2 VENOUS INSUFFICIENCY (CHRONIC) (PERIPHER 01/07/[address] YANY Ot J45.909 UNSPECIFIED ASTHMA, UNCOMPLICATED 01/07/[address] YANY Ot J98.4 OTHER DISORDERS OF LUNG 01/07/[address] YANY Ot M19.91 PRIMARY OSTEOARTHRITIS, UNSPECIFIED SITE 01/07/[address] YANY Ot M54.9 DORSALGIA, UNSPECIFIED 01/07/[address] YANY Ot N18.3 CHRONIC KIDNEY DISEASE, STAGE 3 (MODERAT 01/07/[address] YANY Ot Z68.33 BODY MASS INDEX (BMI) 33.0-33.9, ADULT 01/07/2017 YANY ROWLAND DO, Ot Z87.442 PERSONAL HISTORY OF URINARY CALCULI 01/07/2017 YANY ROWLAND DO, Ot Z87.891 PERSONAL HISTORY OF NICOTINE DEPENDENCE 01/07/2017 YANY ROWLAND DO, Ot Z95.5 PRESENCE OF CORONARY ANGIOPLASTY IMPLANT 04/08/2017 BAM HERNÁNDEZ MD, Ot E11.649 TYPE 2 DIABETES MELLITUS WITH HYPOGLYCEM 04/08/2017 BAM HERNÁNDEZ MD, Ot E78.00 PURE HYPERCHOLESTEROLEMIA, UNSPECIFIED 04/08/2017 BAM HERNÁNDEZ MD, Ot F41.9 ANXIETY DISORDER, UNSPECIFIED 04/08/2017 BAM HERNÁNDEZ MD, Ot I10 ESSENTIAL (PRIMARY) HYPERTENSION 04/08/2017 BAM HERNÁNDEZ MD, Ot I25.10 ATHSCL HEART DISEASE OF [place] CORONARY 04/08/2017 BAM HERNÁNDEZ MD, Ot I25.2 OLD MYOCARDIAL INFARCTION 04/08/2017 ABM HERNÁNDEZ MD, Ot N28.9 DISORDER OF KIDNEY AND URETER, UNSPECIFI 04/08/2017 BAM HERNÁNDEZ MD, Ot R61 GENERALIZED HYPERHIDROSIS 04/08/2017 BAM HERNÁNDEZ MD, Ot Z79.82 MANAGER PUBLIC (CURRENT) USE OF ASPIRIN 04/08/2017 BAM HERNÁNDEZ MD, Ot Z87.442 PERSONAL HISTORY OF URINARY CALCULI 04/08/2017 BAM HERNÁNDEZ MD, Ot Z87.891 PERSONAL HISTORY OF NICOTINE DEPENDENCE 04/08/2017 BAM HERNÁNDEZ MD, Ot Z88.8 ALLERGY STATUS TO OT DRUG/MEDS/BIOL SUB 04/08/2017 BAM HERNÁNDEZ MD, Ot Z95.5 PRESENCE OF CORONARY ANGIOPLASTY IMPLANT Procedures Code Description Performed By [place]formed [place] [id number] DILATION OF CORONARY ARTERY, ONE ARTERY, 01/02/2017 [id number] MEASURE OF CARDIAC SAMPL PRESSURE, L H 01/02/2017 [id number] FLUOROSCOPY OF MULT COR ART USING L OSM 01/02/2017 [id number] FLUOROSCOPY OF LEFT HEART USING LOW OSMO 01/02/2017 Results Test Result Range Complete blood count (CBC) with automated white blood cell (WBC) differential - 01/02/17 20:20 Blood leukocytes automated count (number/volume) 11.8 10*3/uL 4.3-11.0 Blood erythrocytes automated count (number/volume) 4.78 10*6/uL 4.35-5.85 Venous blood hemoglobin measurement (mass/volume) 13.6 g/dL 11.5-16.0 Blood hematocrit (volume fraction) 41 % 35-52 Automated erythrocyte mean corpuscular volume 86 [foz_us] 80-99 Automated erythrocyte mean corpuscular hemoglobin (mass per erythrocyte) 29 pg 25-34 Automated erythrocyte mean corpuscular hemoglobin concentration measurement ( mass/volume) 33 g/dL 32-36 Automated erythrocyte distribution width ratio 14.2 % 10.0-14.5 Automated blood platelet count (count/volume) 278 10*3/uL 130-400 Automated blood platelet mean volume measurement 9.9 [foz_us] 7.4-10.4 Automated blood neutrophils/100 leukocytes 62 % 42-75 Automated blood lymphocytes/100 leukocytes 28 % 12-44 Blood monocytes/100 leukocytes 8 % 0-12 Automated blood eosinophils/100 leukocytes 3 % 0-10 Automated blood basophils/100 leukocytes 0 % 0-10 Blood neutrophils automated count (number/volume) 7.2 10*3 1.8-7.8 Blood lymphocytes automated count (number/volume) 3.2 10*3 1.0-4.0 Blood monocytes automated count (number/volume) 0.9 10*3 0.0-1.0 Automated eosinophil count 0.4 10*3/uL 0.0-0.3 Automated blood basophil count (count/volume) 0.0 10*3/uL 0.0-0.1 PT panel in platelet poor plasma by coagulation assay - 01/02/17 20:20 Prothrombin time (PT) in platelet poor plasma by coagulation assay 12.8 s 12.2-14.7 INR in platelet poor plasma or blood by coagulation assay 1.0 0.8-1.4 Activated partial thromboplastin time (aPTT) in platelet poor plasma bycoagulation assay - 01/02/17 20:20 Activated partial thromboplastin time (aPTT) in platelet poor plasma bycoagulation assay 30 s 24-35 Comprehensive metabolic panel - 01/02/17 20:20 Serum or plasma sodium measurement (moles/volume) 139 mmol/L 135-145 Serum or plasma potassium measurement (moles/volume) 3.7 mmol/L 3.6-5.0 Serum or plasma chloride measurement (moles/volume) 102 mmol/L 98-107 Carbon dioxide 27 mmol/L 21-32 Serum or plasma anion gap determination (moles/volume) 10 mmol/L 5-14 Serum or plasma urea nitrogen measurement (mass/volume) 39 mg/dL 7-18 Serum or plasma creatinine measurement (mass/volume) 1.25 mg/dL 0.60-1.30 Serum or plasma urea nitrogen/creatinine mass ratio 31 NRG Serum or plasma creatinine measurement with calculation of estimated glomerular filtration rate 42 NRG Serum or plasma glucose measurement (mass/volume) 121 mg/dL 70-105 Serum or plasma calcium measurement (mass/volume) 9.6 mg/dL 8.5-10.1 Serum or plasma total bilirubin measurement (mass/volume) 0.3 mg/dL 0.1-1.0 Serum or plasma alkaline phosphatase measurement (enzymatic activity/volume) 111 U/L 40-136 Serum or plasma aspartate aminotransferase measurement (enzymatic activity/ volume) 19 U/L 5-34 Serum or plasma alanine aminotransferase measurement (enzymatic activity/volume ) 16 U/L 0-55 Serum or plasma protein measurement (mass/volume) 7.7 g/dL 6.4-8.2 Serum or plasma albumin measurement (mass/volume) 4.2 g/dL 3.2-4.5 Magnesium - 01/02/17 20:20 Magnesium 2.3 mg/dL 1.8-2.4 Myoglobin, serum - 01/02/17 20:20 Myoglobin, serum 115.6 ng/mL 10.0-92.0 Serum or plasma troponin i.cardiac measurement (mass/volume) - 01/02/17 20:20 Serum or plasma troponin i.cardiac measurement (mass/volume) < ng/ mL <0.30 Myoglobin, serum - 01/02/17 20:20 Myoglobin, serum 115.6 ng/mL 10.0-92.0 Serum or plasma lithium measurement (moles/volume) - 01/02/17 20:20 BNP level 11.2 pg/mL <100.0 Complete urinalysis with reflex to culture - 01/02/17 23:45 Urine color determination YELLOW NRG Urine clarity determination SLIGHTLY CLOUDY NRG Urine pH measurement by test strip 7 5-9 Specific gravity of urine by test strip 1.010 1.016- 1.022 Urine protein assay by test strip, semi-quantitative NEGATIVE NEGATIVE Urine glucose detection by automated test strip 4+ NEGATIVE Erythrocytes detection in urine sediment by light microscopy NEGATIVE NEGATIVE Urine ketones detection by automated test strip NEGATIVE NEGATIVE Urine nitrite detection by test strip NEGATIVE NEGATIVE Urine total bilirubin detection by test strip NEGATIVE NEGATIVE Urine urobilinogen measurement by automated test strip (mass/volume) NORMAL NORMAL Urine leukocyte esterase detection by dipstick NEGATIVE NEGATIVE Automated urine sediment erythrocyte count by microscopy (number/high power field) NONE NRG Automated urine sediment leukocyte count by microscopy (number/high power field ) NONE NRG Bacteria detection in urine sediment by light microscopy TRACE NRG Squamous epithelial cells detection in urine sediment by light microscopy 0-2 NRG Crystals detection in urine sediment by light microscopy PRESENT NRG Casts detection in urine sediment by light microscopy NONE NRG Mucus detection in urine sediment by light microscopy NEGATIVE NRG Complete urinalysis with reflex to culture NO NRG Amorphous sediment detection in urine sediment by light microscopy MOD GURJIT PHOSPHATE NRG Serum or plasma troponin i.cardiac measurement (mass/volume) - 01/03/17 02:05 Serum or plasma troponin i.cardiac measurement (mass/volume) 4.88 ng /mL <0.30 Complete blood count (CBC) with automated white blood cell (WBC) differential - 01/03/17 04:25 Blood leukocytes automated count (number/volume) 9.9 10*3/uL 4.3-11.0 Blood erythrocytes automated count (number/volume) 4.51 10*6/uL 4.35-5.85 Venous blood hemoglobin measurement (mass/volume) 12.8 g/dL 11.5-16.0 Blood hematocrit (volume fraction) 39 % 35-52 Automated erythrocyte mean corpuscular volume 87 [foz_us] 80-99 Automated erythrocyte mean corpuscular hemoglobin (mass per erythrocyte) 28 pg 25-34 Automated erythrocyte mean corpuscular hemoglobin concentration measurement ( mass/volume) 33 g/dL 32-36 Automated erythrocyte distribution width ratio 14.2 % 10.0-14.5 Automated blood platelet count (count/volume) 279 10*3/uL 130-400 Automated blood platelet mean volume measurement 10.1 [foz_us] 7.4-10.4 Automated blood neutrophils/100 leukocytes 55 % 42-75 Automated blood lymphocytes/100 leukocytes 33 % 12-44 Blood monocytes/100 leukocytes 7 % 0-12 Automated blood eosinophils/100 leukocytes 4 % 0-10 Automated blood basophils/100 leukocytes 0 % 0-10 Blood neutrophils automated count (number/volume) 5.5 10*3 1.8-7.8 Blood lymphocytes automated count (number/volume) 3.3 10*3 1.0-4.0 Blood monocytes automated count (number/volume) 0.7 10*3 0.0-1.0 Automated eosinophil count 0.4 10*3/uL 0.0-0.3 Automated blood basophil count (count/volume) 0.0 10*3/uL 0.0-0.1 Whole blood basic metabolic panel - 01/03/17 04:25 Serum or plasma sodium measurement (moles/volume) 142 mmol/L 135-145 Serum or plasma potassium measurement (moles/volume) 4.3 mmol/L 3.6-5.0 Serum or plasma chloride measurement (moles/volume) 107 mmol/L 98-107 Carbon dioxide 26 mmol/L 21-32 Serum or plasma anion gap determination (moles/volume) 9 mmol/L 5-14 Serum or plasma urea nitrogen measurement (mass/volume) 34 mg/dL 7-18 Serum or plasma creatinine measurement (mass/volume) 1.22 mg/dL 0.60-1.30 Serum or plasma urea nitrogen/creatinine mass ratio 28 NRG Serum or plasma creatinine measurement with calculation of estimated glomerular filtration rate 43 NRG Serum or plasma glucose measurement (mass/volume) 101 mg/dL 70-105 Serum or plasma calcium measurement (mass/volume) 9.0 mg/dL 8.5-10.1 Lipid 1996 panel - 01/03/17 04:25 Serum or plasma triglyceride measurement (mass/volume) 115 mg/dL <150 Serum or plasma cholesterol measurement (mass/volume) 181 mg/dL < 200 Serum or plasma cholesterol in HDL measurement (mass/volume) 55 mg/ dL 40-60 Cholesterol in LDL [mass/volume] in serum or plasma by direct assay 105 mg/dL 1-129 Serum or plasma cholesterol in VLDL measurement (mass/volume) 23 mg/ dL 5-40 Capillary blood glucose measurement by glucometer (mass/volume) - 01/03/17 11: 13 Capillary blood glucose measurement by glucometer (mass/volume) 88 mg/dL 70-110 Capillary blood glucose measurement by glucometer (mass/volume) - 01/03/17 16: 08 Capillary blood glucose measurement by glucometer (mass/volume) 78 mg/dL 70-110 Automated blood complete blood count (hemogram) panel - 01/04/17 04:30 Blood leukocytes automated count (number/volume) 7.9 10*3/uL 4.3-11.0 Blood erythrocytes automated count (number/volume) 4.14 10*6/uL 4.35-5.85 Venous blood hemoglobin measurement (mass/volume) 11.8 g/dL 11.5-16.0 Blood hematocrit (volume fraction) 37 % 35-52 Automated erythrocyte mean corpuscular volume 88 [foz_us] 80-99 Automated erythrocyte mean corpuscular hemoglobin (mass per erythrocyte) 29 pg 25-34 Automated erythrocyte mean corpuscular hemoglobin concentration measurement ( mass/volume) 32 g/dL 32-36 Automated erythrocyte distribution width ratio 14.6 % 10.0-14.5 Automated blood platelet count (count/volume) 235 10*3/uL 130-400 Automated blood platelet mean volume measurement 10.1 [foz_us] 7.4-10.4 PT panel in platelet poor plasma by coagulation assay - 01/04/17 04:30 Prothrombin time (PT) in platelet poor plasma by coagulation assay 13.6 s 12.2-14.7 INR in platelet poor plasma or blood by coagulation assay 1.0 0.8-1.4 Whole blood basic metabolic panel - 01/04/17 04:30 Serum or plasma sodium measurement (moles/volume) 142 mmol/L 135-145 Serum or plasma potassium measurement (moles/volume) 4.7 mmol/L 3.6-5.0 Serum or plasma chloride measurement (moles/volume) 114 mmol/L 98-107 Carbon dioxide 19 mmol/L 21-32 Serum or plasma anion gap determination (moles/volume) 9 mmol/L 5-14 Serum or plasma urea nitrogen measurement (mass/volume) 26 mg/dL 7-18 Serum or plasma creatinine measurement (mass/volume) 0.84 mg/dL 0.60-1.30 Serum or plasma urea nitrogen/creatinine mass ratio 31 NRG Serum or plasma creatinine measurement with calculation of estimated glomerular filtration rate > NRG Serum or plasma glucose measurement (mass/volume) 105 mg/dL 70-105 Serum or plasma calcium measurement (mass/volume) 8.8 mg/dL 8.5-10.1 Capillary blood glucose measurement by glucometer (mass/volume) - 04/07/17 16: 32 Capillary blood glucose measurement by glucometer (mass/volume) 73 mg/dL 70-110 Complete blood count (CBC) with automated white blood cell (WBC) differential - 04/07/17 17:03 Blood leukocytes automated count (number/volume) 8.2 10*3/uL 4.3-11.0 Blood erythrocytes automated count (number/volume) 4.11 10*6/uL 4.35-5.85 Venous blood hemoglobin measurement (mass/volume) 12.3 g/dL 11.5-16.0 Blood hematocrit (volume fraction) 38 % 35-52 Automated erythrocyte mean corpuscular volume 93 [foz_us] 80-99 Automated erythrocyte mean corpuscular hemoglobin (mass per erythrocyte) 30 pg 25-34 Automated erythrocyte mean corpuscular hemoglobin concentration measurement ( mass/volume) 32 g/dL 32-36 Automated erythrocyte distribution width ratio 14.6 % 10.0-14.5 Automated blood platelet count (count/volume) 271 10*3/uL 130-400 Automated blood platelet mean volume measurement 9.9 [foz_us] 7.4-10.4 Automated blood neutrophils/100 leukocytes 64 % 42-75 Automated blood lymphocytes/100 leukocytes 26 % 12-44 Blood monocytes/100 leukocytes 9 % 0-12 Automated blood eosinophils/100 leukocytes 1 % 0-10 Automated blood basophils/100 leukocytes 0 % 0-10 Blood neutrophils automated count (number/volume) 5.3 10*3 1.8-7.8 Blood lymphocytes automated count (number/volume) 2.2 10*3 1.0-4.0 Blood monocytes automated count (number/volume) 0.7 10*3 0.0-1.0 Automated eosinophil count 0.1 10*3/uL 0.0-0.3 Automated blood basophil count (count/volume) 0.0 10*3/uL 0.0-0.1 PT panel in platelet poor plasma by coagulation assay - 04/07/17 17:03 Prothrombin time (PT) in platelet poor plasma by coagulation assay 13.0 s 12.2-14.7 INR in platelet poor plasma or blood by coagulation assay 1.0 0.8-1.4 Activated partial thromboplastin time (aPTT) in platelet poor plasma bycoagulation assay - 04/07/17 17:03 Activated partial thromboplastin time (aPTT) in platelet poor plasma bycoagulation assay 26 s 24-35 Comprehensive metabolic panel - 04/07/17 17:03 Serum or plasma sodium measurement (moles/volume) 140 mmol/L 135-145 Serum or plasma potassium measurement (moles/volume) 4.3 mmol/L 3.6-5.0 Serum or plasma chloride measurement (moles/volume) 104 mmol/L 98-107 Carbon dioxide 27 mmol/L 21-32 Serum or plasma anion gap determination (moles/volume) 9 mmol/L 5-14 Serum or plasma urea nitrogen measurement (mass/volume) 35 mg/dL 7-18 Serum or plasma creatinine measurement (mass/volume) 1.42 mg/dL 0.60-1.30 Serum or plasma urea nitrogen/creatinine mass ratio 25 NRG Serum or plasma creatinine measurement with calculation of estimated glomerular filtration rate 36 NRG Serum or plasma glucose measurement (mass/volume) 91 mg/dL 70-105 Serum or plasma calcium measurement (mass/volume) 9.2 mg/dL 8.5-10.1 Serum or plasma total bilirubin measurement (mass/volume) 0.2 mg/dL 0.1-1.0 Serum or plasma alkaline phosphatase measurement (enzymatic activity/volume) 62 U/L 40-136 Serum or plasma aspartate aminotransferase measurement (enzymatic activity/ volume) 22 U/L 5-34 Serum or plasma alanine aminotransferase measurement (enzymatic activity/volume ) 20 U/L 0-55 Serum or plasma protein measurement (mass/volume) 7.3 g/dL 6.4-8.2 Serum or plasma albumin measurement (mass/volume) 4.0 g/dL 3.2-4.5 Magnesium - 04/07/17 17:03 Magnesium 2.8 mg/dL 1.8-2.4 Serum or plasma troponin i.cardiac measurement (mass/volume) - 04/07/17 17:03 Serum or plasma troponin i.cardiac measurement (mass/volume) < ng/ mL <0.30 Myoglobin, serum - 04/07/17 17:03 Myoglobin, serum 47.1 ng/mL 10.0-92.0 Serum or plasma thyrotropin measurement by detection limit <=0.05 miu/l (units/ volume) - 04/07/17 17:03 Serum or plasma thyrotropin measurement by detection limit <=0.05 miu/l (units/ volume) 1.24 u[iU]/mL 0.35-4.94 Encounters ACCT No. Visit Date/Time Discharge Status Pt. Type Provider Facility Loc./Unit Complaint [id number] 04/10/2017 08:44:00 04/10/2017 23:59:59 CLS Outpatient MULU VICENTE MD [facility] CR AMI [id number] 04/07/2017 16:15:00 04/07/2017 18:21:00 DIS Outpatient BAM HERNÁNDEZ MD [facility] ER BODY TINGLING/HOT FLASHES [id number] 01/03/2017 14:08:00 2017 11:49:00 DIS Inpatient YANY ROWLAND DO [facility] ICU CHEST PAIN R/O ACS [id number] 12/28/2016 08:35:00 12/28/2016 10:50:00 DIS Outpatient HEATHER JEAN MD [facility] ENDO DIARRHEA, ABDOMINAL PAIN [id number] 12/26/2016 10:00:00 12/26/2016 10:27:00 DIS Outpatient HEATHER JEAN MD [facility] PREOP DIARRHEA, ABDOMINAL PAIN [id number] 07/05/2014 10:00:00 07/05/2014 23:59:59 CLS Preadmit MULU VICENTE MD [facility] CARD RUQ PAIN [id number] 07/04/2014 18:03:00 07/04/2014 21:58:00 DIS Emergency SORAIDA ALATORRE [facility] ER BLOOD IN STOOL [id number] 06/25/2014 08:03:00 06/25/2014 23:59:59 CLS Outpatient MULU VICENTE MD [facility] RAD RIGHT UPPER QUADRANT PAIN [id number] 06/20/2014 12:44:00 06/20/2014 17:30:00 DIS Emergency SORAIDA ALATORRE [facility] ER BACK PAIN [id number] 01/06/2013 07:26:00 01/06/2013 12:45:00 DIS Outpatient LEON SPICER FACC, AMOL VARELA CCDS [facility] CATH SOB,CAD,HTN, DM,HYPERLIPIDEMIA [id number] 06/11/2012 08:46:00 Document Registration [id number] 09/04/2011 07:27:00 Document Registration [id number] 09/03/2011 08:18:00 Document Registration
--- OUTSIDE RECORDS SUMMARY | 2017-04-21 15:36 | XMS REPORT ---
Author Author JENNIFER DEL RIO Organization [facility] Address Unknown Care Team Providers Care Web Content Director Name Role Phone LATRICIAARIEL JENNIFER Unavailable PROBLEMS Unknown Problems ALLERGIES No Known Allergies SOCIAL HISTORY Never Assessed PLAN OF CARE Activity Details Follow Up prn Reason:Wax rim Try in VITAL SIGNS MEDICATIONS Medication Instructions Dosage Frequency Start Date End Date Duration Status Hydrocodone-Acetaminophen Active Valium 5 MG take 2 tablets the night before and 2 tablets an hour prior to appt 0 days Active [place] Active Atorvastatin Calcium Active Aspir-81 Active Valium 5 MG 2 tablets night before and 2 tablets 1 hr before extraction Feb, 1 days Active Clopidogrel Bisulfate Active Alprazolam Active Potassium Bicarb & Chloride Active Furosemide Active Carvedilol Active RESULTS No Results PROCEDURES Procedure Date Ordered Result Body Site Dental no charge July 11, 2016 IMMUNIZATIONS No Known Immunizations MEDICAL (GENERAL) HISTORY Type Description Date Medical History HBP Medical History Diabetes Type II Medical History Blood Thinner Medical History Heart Disease Surgical History 5 stents in heart 2009 Surgical History cordinatal artary 2012
[2017-04-21] MEDS ORDERED: ASPIRIN 81 MG CHEW (CHILDREN'S ASA) PO ONE (15:45)
[2017-04-21] MEDS ORDERED: NS IV 1000 ML 1,000 ML IV ONE (15:54)
--- NOTE | 2017-04-21 15:54 | ED General ---
General Chief Complaint: Cough/Cold/Flu Symptoms Stated Complaint: FLU SYMPTOMS AND CP History of Present Illness Date Seen by Provider: Apr 21, 2017 Time Seen by Provider: 15:45 Initial Comments 77-year-old female presents for cough, fevers, body aches, and chest pain. She thinks the chest pain is related to the coughing. She reports that her symptoms began last evening. Her significant other was present here last night for similar symptoms and was influenza negative. She has been vomiting today. She's had some sips of water. Timing/Duration: 12-24 Hours Severity: Moderate Modifying Factors: improves with Rest Allergies and Home Medications Allergies Coded Allergies: adenosine (Verified Adverse Reaction, Mild, 01/02/17) FLUSHED/NAUSEA Home Medications Alprazolam 0.25 Mg Tablet, 0.25 MG PO DAILY, (Reported) Aspirin 81 Mg Tab.chew, 81 MG PO DAILY, #30 Ref 5 Prescribed by: AAKASH LAZCANO on 01/04/17 0836 Clopidogrel Bisulfate 75 Mg Tablet, 75 MG PO DAILY, (Reported) Dapagliflozin Propanediol 5 Mg Tablet, 5 MG PO DAILY, (Reported) Furosemide 40 Mg Tablet, 40 MG PO DAILY, (Reported) Hydrocodone/Acetaminophen 1 Each Tablet, 1 TAB PO Q4H PRN for PAIN-MODERATE, ( Reported) Lisinopril 5 Mg Tablet, 5 MG PO DAILY@0900, #30 Ref 5 Prescribed by: AAKASH LAZCANO on 01/04/17 0836 Metoprolol Succinate 50 Mg Tab.er.24h, 50 MG PO DAILY, #30 Ref 5 Prescribed by: AAKASH LAZCANO on 01/04/17 0836 Multivitamin 1 Each Tablet, 1 TAB PO DAILY, (Reported) Nortriptyline HCl 25 Mg Capsule, 25 MG PO HS, (Reported) Ondansetron 8 Mg Tab.rapdis, 8 MG PO Q8H, #6 Ref 0 Prescribed by: JORDAN ANGUIANO on 04/21/17 1729 Pantoprazole Sodium 40 Mg Tablet.dr, 40 MG PO DAILY, (Reported) Rosuvastatin Calcium 40 Mg Tablet, 40 MG PO HS, (Reported) Topiramate 25 Mg Tablet, 25 MG PO BID, (Reported) Constitutional: see HPI, fever, malaise, weakness EENTM: see HPI, no symptoms reported Respiratory: see HPI, cough Cardiovascular: see HPI, chest pain Gastrointestinal: see HPI, nausea, vomiting Genitourinary: no symptoms reported, see HPI All Other Systems Reviewed Negative Unless Noted: Yes Past Vslpacp-Aslcuy-Dqcvxl Hx Patient Social History Former Smoker, Quit: Dec 26, 2009 Recent Hopitalizations: No Immunizations Up To Date Date of Pneumonia Vaccine: Jan 06, 2013 Date of Influenza Vaccine: Dec 17, 2016 Seasonal Allergies Seasonal Allergies: No Surgeries History of Surgeries: Yes (STENTS X5, CAROTID) Surgeries: Coronary Stent Respiratory History of Respiratory Disorde: No Cardiovascular History of Cardiac Disorders: Yes Cardiac Disorders: Coronary Artery Disease, Heart Murmur, High Cholesterol, Hypertension Neurological History of Neurological Disord: No Reproductive System Hx Reproductive Disorders: No Sexually Transmitted Disease: No HIV/AIDS: No Genitourinary History of Genitourinary Disor: Yes Genitourinary Disorders: Kidney Stones Gastrointestinal History of Gastrointestinal Di: Yes (ABDOMINAL PAIN) Gastrointestinal Disorders: Chronic Diarrhea Musculoskeletal History of Musculoskeletal Dis: Yes Musculoskeletal Disorders: Arthritis, Chronic Back Pain Endocrine History of Endocrine Disorders: Yes HEENT History of HEENT Disorders: No Loss of Vision: Denies Hearing Impairment: Denies Cancer History of Cancer: No Psychosocial History of Psychiatric Problem: Yes Behavioral Health Disorders: Anxiety Integumentary History of Skin or Integumenta: No Blood Transfusions History of Blood Disorders: No Adverse Reaction to a Blood Tr: No Reviewed Nursing Assessment Reviewed/Agree w Nursing PMH: Yes Family Medical History Significant Family History: No Pertinent Family Hx Family Medial History: Arthritis 19 FATHER 19 MOTHER G8 BROTHER G8 SISTER G8 SISTER Cardiovascular disease 19 MOTHER Diabetes mellitus 19 MOTHER G8 SISTER G8 SISTER Myocardial infarction G8 SISTER Parkinson's disease G8 SISTER Physical Exam Vital Signs Vital Signs - First Documented 04/21/17 04/21/17 15:47 16:00 Temp 101.5 Pulse 87 Resp 18 B/P (MAP) 136/66 (89) Pulse Ox 98 O2 Delivery Nasal Cannula Capillary Refill : General Appearance: No Apparent Distress, WD/WN Eyes: Bilateral Eye Normal Inspection, Bilateral Eye PERRL, Bilateral Eye EOMI HEENT: PERRL/EOMI, TMs Normal, Normal ENT Inspection, Pharynx Normal Neck: Full Range of Motion, Normal Inspection, Non Tender, Supple Respiratory: Chest Non Tender, Lungs Clear Cardiovascular: Regular Rate, Rhythm, No Edema, Normal Peripheral Pulses Gastrointestinal: Normal Bowel Sounds, Non Tender, Soft Extremity: Normal Capillary Refill, Normal Inspection, No Pedal Edema Neurologic/Psychiatric: Alert, Oriented x3, No Motor/Sensory Deficits, Normal Mood/Affect Progress/Results/Core Measures Suspected Sepsis Recent Fever Within 48 Hours: Yes Infection Criteria Present: None New/Unexplained Altered Menta: No Within 3hrs of presentation: Admin fluids Sepsis Diagnosis: SIRS Temperature: Pulse: Respiratory Rate: Laboratory Tests 04/21/17 16:08: White Blood Count 6.9 Blood Pressure / Mean: Laboratory Tests 04/21/17 16:08: Creatinine 1.12, INR Comment 1.1, Platelet Count 210, Total Bilirubin 0.7 Results/Orders Lab Results Laboratory Tests Test 04/21/17 15:45 04/21/17 16:08 Range/Units Glucometer 117 H 70-110 MG/DL White Blood Count 6.9 4.3-11.0 10^3/uL Red Blood Count 4.03 L 4.35-5.85 10^6/uL Hemoglobin 12.2 11.5-16.0 G/DL Hematocrit 37 35-52 % Mean Corpuscular Volume 92 80-99 FL Mean Corpuscular Hemoglobin 30 25-34 PG Mean Corpuscular Hemoglobin Concent 33 32-36 G/DL Red Cell Distribution Width 14.1 10.0-14.5 % Platelet Count 210 130-400 10^3/uL Mean Platelet Volume 10.0 7.4-10.4 FL Neutrophils (%) (Auto) 73 42-75 % Lymphocytes (%) (Auto) 8 L 12-44 % Monocytes (%) (Auto) 18 H 0-12 % Eosinophils (%) (Auto) 0 0-10 % Basophils (%) (Auto) 1 0-10 % Neutrophils # (Auto) 5.1 1.8-7.8 X 10^3 Lymphocytes # (Auto) 0.6 L 1.0-4.0 X 10^3 Monocytes # (Auto) 1.2 H 0.0-1.0 X 10^3 Eosinophils # (Auto) 0.0 0.0-0.3 10^3/uL Basophils # (Auto) 0.0 0.0-0.1 10^3/uL Prothrombin Time 13.8 12.2-14.7 SEC INR Comment 1.1 0.8-1.4 Activated Partial Thromboplast Time 26 24-35 SEC Sodium Level 139 135-145 MMOL/L Potassium Level 4.3 3.6-5.0 MMOL/L Chloride Level 101 98-107 MMOL/L Carbon Dioxide Level 24 21-32 MMOL/L Anion Gap 14 5-14 MMOL/L Blood Urea Nitrogen 21 H 7-18 MG/DL Creatinine 1.12 0.60-1.30 MG/DL Estimat Glomerular Filtration Rate 47 BUN/Creatinine Ratio 19 Glucose Level 116 H 70-105 MG/DL Calcium Level 9.3 8.5-10.1 MG/DL Magnesium Level 2.2 1.8-2.4 MG/DL Total Bilirubin 0.7 0.1-1.0 MG/DL Aspartate Amino Transf (AST/SGOT) 23 5-34 U/L Alanine Aminotransferase (ALT/SGPT) 21 0-55 U/L Alkaline Phosphatase 68 40-136 U/L Myoglobin 63.5 10.0-92.0 NG/ML Troponin I < 0.30 <0.30 NG/ML Total Protein 7.1 6.4-8.2 GM/DL Albumin 4.0 3.2-4.5 GM/DL Micro Results Microbiology 04/21/17 Influenza Types A,B Antigen (ROLAND) - Final, Complete My Orders Orders - JORDAN ANGUIANO Accucheck Stat ONCE (04/21/17 15:37) Cbc With Automated Diff (04/21/17 15:37) Magnesium (04/21/17 15:37) Chest 1 View, Ap/Pa Only (04/21/17 15:37) Cardiac Profile 1 (04/21/17 15:37) Comprehensive Metabolic Panel (04/21/17 15:37) Myoglobin Serum (04/21/17 15:37) Protime With Inr (04/21/17 15:37) Partial Thromboplastin Time (04/21/17 15:37) O2 (04/21/17 15:37) Monitor-Rhythm Ecg Trace Only (04/21/17 15:37) Aspirin Chewable Tablet (Baby Aspirin Ch (04/21/17 15:45) Saline Lock/Iv-Start (04/21/17 15:37) Influenza A And B Antigens (04/21/17 15:43) Saline Lock/Iv-Start (04/21/17 15:54) Ns Iv 1000 Ml (Sodium Chloride 0.9%) (04/21/17 15:54) Ondansetron Injection (Zofran Injectio (04/21/17 16:00) Acetaminophen Tablet/Caplet (Tylenol T (04/21/17 15:55) Rx-Ondansetron Po (Rx-Zofran Po) (04/21/17 17:50) Medications Given in ED Current Medications Medications Dose Ordered Sig/Wilver Route Start Time Stop Time Status Last Admin Dose Admin Aspirin 324 mg ONCE ONCE PO 04/21/17 15:45 04/21/17 15:46 DC 04/21/17 16:16 324 MG Ondansetron HCl 4 mg ONCE ONCE IVP 04/21/17 16:00 04/21/17 16:01 DC 04/21/17 16:16 4 MG Sodium Chloride 1,000 ml @ 0 mls/hr Q0M ONCE IV 04/21/17 15:54 04/21/17 15:55 DC 04/21/17 16:16 1,000 MLS/HR Vital Signs/I&O Vital Sign - Last 12Hours 04/21/17 04/21/17 04/21/17 04/21/17 15:47 16:00 16:16 16:16 Temp 101.5 101.5 101.5 Pulse 87 Resp 18 B/P (MAP) 136/66 (89) Pulse Ox 98 98 O2 Delivery Nasal Cannula 04/21/17 18:10 Temp 101.5 Pulse 86 Resp 18 B/P (MAP) 132/70 (89) Pulse Ox 98 O2 Delivery Nasal Cannula Capillary Refill : Progress Note : Time: 15:45 Progress Note Initial evaluation completed, recommended labs, 1 L normal saline IV, Zofran 4 mg IV and reevaluation. 1700 patient reports no further nausea or vomiting, and much better compared to go home. Discharge instructions return precautions reviewed with patient. All questions answered. ECG Initial ECG Impression Date: Apr 21, 2017 Initial ECG Impression Time: 15:34 Initial ECG Rate: 90 Initial ECG Rhythm: Normal Sinus Initial ECG Intervals: Normal Initial ECG Intervals HI 148, QRS T 90, QT 352, QTC 431. [place] P0, QRS 37, T 18. Initial ECG Impression: Normal Initial ECG Comparisson: Unchanged Comment Reviewed with Dr. Ayala, concurred with interpretation. Diagnostic Imaging Diagonstic Imaging: Xray Plain Films/CT/US/NM/MRI: chest Comments NAME: ELLEN CASTILLO [facility] REC#: [id number] PT STATUS: REG ER : 1940 PHYSICIAN: JORDAN ANGUIANO ADMIT DATE: 04/21/17/ER Draft Date of Exam:04/21/17 CHEST 1 VIEW, AP/PA ONLY INDICATION: Fever, weakness. COMPARISON: 04/07/2017. TECHNIQUE: Single frontal radiograph of the chest dated April 21, 2017. FINDINGS: The cardiac silhouette is mildly enlarged, though stable. Minimal central pulmonary vascular congestion, appearing slightly more prominent than prior examination. However, the lungs appear clear of focal pulmonary opacity. No pleural effusion. No pneumothorax. No acute osseous abnormality. Surgical clips within the right neck. IMPRESSION: Mild cardiomegaly with minimal pulmonary vascular congestion without significant interstitial edema or pleural effusion. Dictated on workstation # [id number] Dict: 04/21/17 1553 Trans: 04/21/[address] [facility] [id number] Interpreted by: CHAD NEGRETE MD Electronically signed by: Reviewed: Reviewed by Me Departure Impression Impression: Primary Impression: Upper respiratory infection Qualified Codes: J06.9 - Acute upper respiratory infection, unspecified Additional Impressions: Fever Qualified Codes: R50.9 - Fever, unspecified Cough Nausea and vomiting Qualified Codes: G43.A1 - Cyclical vomiting, intractable Disposition: 01 HOME, SELF-CARE Condition: Improved Departure-Patient Inst. Decision time for Depature: 17:00 Referrals: MULU VICENTE MD (PCP/Family) Primary Care Physician Patient Instructions: Cough, Adult (DC), Viral Upper Respiratory Infection, Adult (DC) Add. Discharge Instructions: Increase fluids. Use Tylenol 650 mg or ibuprofen 600 mg alternating every 4 hours for pain or fevers. Follow-up with your primary care provider in 2-3 days if symptoms are not improving. Return to emergency department for fever greater than 101 not relieved by Tylenol or ibuprofen, difficulty breathing, new problems or concerns. All discharge instructions reviewed with patient and/or family. Voiced understanding. Scripts Ondansetron (Zofran Odt) 8 Mg Tab.rapdis 8 MG PO Q8H, #6 TAB 0 Refills Prov: JORDAN ANGUIANO 04/21/17 Copy Copies To 1: MULU VICENTE MD, AMY ARNP Apr 21, 2017 15:54
[2017-04-21] MEDS ORDERED: ACETAMINOPHEN 325 MG TABLET/CAPLET (TYLENOL) PO STA (15:55)
[2017-04-21] MEDS ORDERED: ONDANSETRON 4 MG/2 ML (SDV) Z0FRAN IVP ONE (16:00)
--- NOTE | 2017-04-21 16:09 | Diagnostic Imaging Report ---
INDICATION: Fever, weakness. COMPARISON: 04/07/2017. TECHNIQUE: Single frontal radiograph of the chest dated April 21, 2017. FINDINGS: The cardiac silhouette is mildly enlarged, though stable. Minimal central pulmonary vascular congestion, appearing slightly more prominent than prior examination. However, the lungs appear clear of focal pulmonary opacity. No pleural effusion. No pneumothorax. No acute osseous abnormality. Surgical clips within the right neck. IMPRESSION: Mild cardiomegaly with minimal pulmonary vascular congestion without significant interstitial edema or pleural effusion. Dictated by: Dictated on workstation # [id number]
[2017-04-21 16:17] LABS: BASOPHILS % (AUTO) 1 % (0-10); EOSINOPHILS % (AUTO) 0 % (0-10); HEMATOCRIT 37 % (35-52); HEMOGLOBIN 12.2 G/DL (11.5-16.0); LYMPHOCYTES # (AUTO) 0.6 X 10^3 (1.0-4.0); LYMPHOCYTES % (AUTO) 8 % (12-44); MEAN CORPUSCULAR HEMOGLOBIN 30 PG (25-34); MEAN CORPUSCULAR HGB CONC 33 G/DL (32-36); MEAN CORPUSCULAR VOLUME 92 FL (80-99); MONOCYTES # (AUTO) 1.2 X 10^3 (0.0-1.0); MONOCYTES % (AUTO) 18 % (0-12); NEUTROPHILS # (AUTO) 5.1 X 10^3 (1.8-7.8); NEUTROPHILS % (AUTO) 73 % (42-75); PLATELET COUNT 210 10^3/uL (130-400); RED BLOOD COUNT 4.03 10^6/uL (4.35-5.85); RED CELL DISTRIBUTION WIDTH 14.1 % (10.0-14.5); WHITE BLOOD COUNT 6.9 10^3/uL (4.3-11.0)
[2017-04-21 16:23] LABS: INR 1.1 (0.8-1.4); PROTHROMBIN TIME PATIENT 13.8 SEC (12.2-14.7)
[2017-04-21 16:34] LABS: ALANINE AMINOTRANSFERASE 21 U/L (0-55); ALKALINE PHOSPHATASE 68 U/L (40-136); BILIRUBIN,TOTAL 0.7 MG/DL (0.1-1.0); BUN/CREATININE RATIO 19; CALCIUM 9.3 MG/DL (8.5-10.1); CARBON DIOXIDE 24 MMOL/L (21-32); CHLORIDE 101 MMOL/L (98-107); CREATININE SERUM 1.12 MG/DL (0.60-1.30); GFR ESTIMATED 47; GLUCOSE 116 MG/DL (70-105); MAGNESIUM 2.2 MG/DL (1.8-2.4); POTASSIUM 4.3 MMOL/L (3.6-5.0); SODIUM 139 MMOL/L (135-145); TOTAL PROTEIN 7.1 GM/DL (6.4-8.2)
[2017-04-21 16:41] LABS: MYOGLOBIN SERUM 63.5 NG/ML (10.0-92.0)
[2017-04-21] MEDS ORDERED: ONDA8TAB9 PO (17:29)
[2017-04-21] MEDS ORDERED: RX-ONDANSETRON 4 MG ODT (ZOFRAN) PPK #4 PO STA (17:50)
[2017-04-21 18:10] VITALS: BP 132/70
== END 2017-04-21 18:10 | disposition home or self-care (01) ==
LOC: EDUNIT# 15:29 → ER 15:31
DX: J06.9 Acute upper respiratory infection, unspecified (principal); I25.10 Atherosclerotic heart disease of native coronary artery without angina pectoris; E78.00 Pure hypercholesterolemia, unspecified; I10 Essential (primary) hypertension; F41.9 Anxiety disorder, unspecified; Z82.49 Family history of ischemic heart disease and other diseases of the circulatory system; Z87.19 Personal history of other diseases of the digestive system; Z87.442 Personal history of urinary calculi; Z88.8 Allergy status to other drugs, medicaments and biological substances; Z79.82 Long term (current) use of aspirin; Z95.5 Presence of coronary angioplasty implant and graft
CPT/HCPCS: 36415; 71045; 80053; 82962; 83735; 83874; 84484; 85025; 85610; 85730; 87804; 93005; 93041

== ENCOUNTER 2017-05-06 08:20 | Outpatient (RCR) | payer MEDICARE ==
[~2017-05-06 08:20] MED LIST changes: +ONDA8TAB9 PO
== END 2017-06-23 | disposition home or self-care (01) ==
LOC: CR 08:20
DX: Z09 Encounter for follow-up examination after completed treatment for conditions other than malignant neoplasm (principal); I25.2 Old myocardial infarction
CPT/HCPCS: 93798

== ENCOUNTER → 2017-07-11 | Outpatient (CLI) | payer MEDICARE ==
--- NOTE | 2017-07-11 14:22 | Diagnostic Imaging Report ---
PROCEDURE: MRI lumbar spine. TECHNIQUE: Multiplanar, multisequence MRI of the lumbar spine was performed without contrast. INDICATION: Low back pain. FINDINGS: The previous MRI lumbar spine exam performed on 12/08/2010 noted diffuse degenerative disc and facet disease throughout the lumbar spine. There was also spinal stenosis at L3-L4 and L4-L5. The previous study also revealed bone edema along the inferior aspect of the vertebral body of L1. On this study, there is a long-standing compression deformity of the inferior endplate of L1. There is also desiccation of the disc at this level. Furthermore in the interval since the prior exam, a disc protrusion to the right has developed at L1-L2. The disc compresses the right ventral aspect of the thecal sac and narrows the AP diameter to approximately 10.5 mm. There is also narrowing of the neural foramen on the right at this level and the disc material is in close proximity to the exiting right nerve root. There is no evidence for nerve root encroachment on the left at L1-L2. At the L2-L3 level, there is a disc bulge centrally. The disc narrows the AP diameter of the thecal sac to 10.2 mm. There is also narrowing of the neural foramina bilaterally at this level, particularly on the right. At the L3-L4 level, the AP diameter of the thecal sac measures 9.4 mm. There is also at least moderate narrowing of the neural foramen on the right at this level and mild narrowing of the neural foramen on the left. At the L4-L5 level, the AP diameter of the thecal sac measures 8.4 mm. There does appear to be at least moderate narrowing of the neural foramen on the left at this level due to degenerative disc, ligamentous, and bony disease. There may be encroachment of the nerve root at this level. At L5-S1, the AP diameter of the thecal sac measures 11.3 mm. There is no significant neuroforaminal narrowing. There is no abnormal signal arising from the cord or the vertebral bodies to indicate an acute abnormality. There is no sign of a paraspinal mass. IMPRESSION: 1. There is degenerative disc, ligamentous, and bony disease throughout the lumbar spine. In the interval since the prior study, a disc protrusion to the right has developed at L1-L2. While there does not appear to be any significant central stenosis at the level, the disc material is in close proximity to the exiting right nerve root and may encroach upon the nerve root. 2. There is also spinal stenosis at L3-L4 and L4-L5 with narrowing of the neural foramina bilaterally at these two levels, particularly on the right. 3. There is no sign of an acute bony abnormality or of a cord lesion. Dictated by: Dictated on workstation # [id number]
--- NOTE | 2017-07-11 17:20 | Diagnostic Imaging Report ---
EXAM: DEXA scan INDICATION: Screening for osteoporosis FINDINGS: The bone mineral density of the hips and spine was measured. The previous DEXA scan of 12/04/2007 is not available for direct comparison at this time. The report from the previous exam did note that the T score for the spine was -0.2. On this exam, the T score has increased and is now 1.3. On the previous study the T score for the right hip was 0.7. The T score for left hip is now -0.3 and for the right hip -0.6. IMPRESSION: There has been an increase in the bone mineral density of the spine in the interval since the prior exam and the T score is now well within normal limits. Conversely, the bone mineral density of each hip has decreased since the previous study. However the T-scores remain within the range of normal. Dictated by: Dictated on workstation # [id number]
== END ==
LOC: RAD 11:32
DX: Z13.820 Encounter for screening for osteoporosis (principal); M48.061 Spinal stenosis, lumbar region without neurogenic claudication; M51.36 Other intervertebral disc degeneration, lumbar region; M51.26 Other intervertebral disc displacement, lumbar region; M99.73 Connective tissue and disc stenosis of intervertebral foramina of lumbar region
CPT/HCPCS: 72148; 77080

== ENCOUNTER → 2017-11-21 | Outpatient (CLI) | payer MEDICARE ==
[~2017-11-21] MED LIST changes: -ROSU40TA21 PO; +ROSU40TA22 PO
--- NOTE | 2017-11-21 16:38 | Diagnostic Imaging Report ---
INDICATION: Chronic cough EXAM: PA and lateral chest FINDINGS: Heart size and pulmonary vascularity are normal. The lungs are clear. There are no effusions or pneumothoraces. IMPRESSION: Negative chest. Dictated by: Dictated on workstation # [id number]
--- NOTE | 2017-11-25 16:05 | Diagnostic Imaging Report ---
Indication: Screening. No prior examination available for comparison. The current study was also evaluated with a Computer Aided Detection (CAD) system. 3-D tomosynthesis was also performed and reviewed. Findings: There are scattered fibroglandular densities bilaterally. There is no dominant mass, spiculated lesion or suspicious calcifications identified. A few benign type calcifications. Skin, nipples and adnexa are unremarkable. Impression: Category 2 benign. ACR BI-RADS Category 2: Benign findings. Result letter will be mailed to the patient. Note: At least 10% of breast cancer is not imaged by mammography. Dictated by: Dictated on workstation # [id number]
== END ==
LOC: RAD 15:26
DX: Z12.31 Encounter for screening mammogram for malignant neoplasm of breast (principal); R05 Cough
CPT/HCPCS: 71046; 77067

== ENCOUNTER 2018-07-01 10:35 | Day surgery (SDC) | payer MEDICARE ==
[~2018-07-01] VITALS: Ht 154.9 cm; Wt 87.3 kg
[2018-07-01] VITALS (17 sets, daily range): BP systolic 66–163; BP diastolic 34–122
[2018-07-01] MEDS ORDERED: DOPamine DRIP 400,000 MCG/250 ML BAG IV ONE (10:36)
[2018-07-01] MEDS ORDERED: NS 250 ML (IVPB) BAG IV ONE (10:36)
[2018-07-01] MEDS ORDERED: ATROPINE INJECTION 1 MG/10 ML SYR (ABBOTT) INJ ONE (10:36)
[2018-07-01] MEDS ORDERED: EPINEPHrine 0.1 MG/ML 10 ML (HOSPIRA) SYR IJ ONE (10:36)
--- OUTSIDE RECORDS SUMMARY | 2018-07-01 10:39 | XMS REPORT ---
Author Author JENNIFER DEL RIO [facility] Address Unknown Care Team Providers Care Route Sales Delivery Drivers Supervisor Name Role Phone JENNIFER DEL RIO Unavailable PROBLEMS Unknown Problems ALLERGIES No Known Allergies ENCOUNTERS Encounter Location Date Diagnosis [facility] [address] [id number] [place] [address] [phone] May, Dental examination Z01.20 [facility] [address] [id number] [place] [address] [phone] Oct, Dental examination Z01.20 and Dental caries K02.9 [facility] [address] [id number] [place] [address] [phone] Oct, Dental caries K02.9 [facility] [address] [id number] [place] [address] [phone] Sep, Dental examination Z01.20 [facility] [address] [id number] [place] [address] [phone] Aug, Dental examination Z01.20 [facility] [address] [id number] [phone] July, Dental examination Z01.20 [facility] [address] [id number] [phone] Jun, Dental examination Z01.20 [facility] [address] [id number] [phone] Apr, Dental examination Z01.20 [facility] [address] [id number] [place] [address] [phone] Apr, Dental examination Z01.20 [facility] [address] [id number][place] [phone] Mar, Dental examination Z01.20 [facility] [address] [id number] [place] [phone] Feb, Dental caries K02.9 [facility] [address] [id number] [place] [phone] Feb, [facility] [address] [facility] [id number] [place] [phone] Nov, Dental examination Z01.20 [facility] [address] [facility] [id number] [place] [phone] Feb, Encounter for dental examination Z01.20 IMMUNIZATIONS No Known Immunizations SOCIAL HISTORY Never Assessed REASON FOR VISIT Denture seat/te PLAN OF CARE Activity Details Follow Up prn Reason:Adjustment as needed VITAL SIGNS Blood pressure systolic 149 mmHg 2016-10-25 Blood pressure diastolic 80 mmHg 2016-10-25 MEDICATIONS Medication Instructions Dosage Frequency Start Date End Date Duration Status Alprazolam Active Clopidogrel Bisulfate Active Carvedilol Active Valium 5 MG take 2 tablets the night before and 2 tablets an hour prior to appt 0 days Active Fareston Active Atorvastatin Calcium Active Aspir-81 Active Valium 5 MG 2 tablets night before and 2 tablets 1 hr before extraction Feb, 1 days Active Furosemide Active Hydrocodone-Acetaminophen Active Potassium Bicarb & Chloride Active RESULTS No Results PROCEDURES Procedure Date Ordered Result Body Site IMMEDIATE DENTURE - MAXILLARY Oct 25, 2016 SURG REMOVAL ERUPTED TOOTH Oct 25, 2016 Billing Notes on claim Oct 25, 2016 INSTRUCTIONS MEDICATIONS ADMINISTERED No Known Medications MEDICAL (GENERAL) HISTORY Type Description Date Medical History HBP Medical History Diabetes Type II Medical History Blood Thinner Medical History Heart Disease Surgical History 5 stents in heart 2009 Surgical History cordinatal artary 2013
--- OUTSIDE RECORDS SUMMARY | 2018-07-01 10:39 | XMS REPORT ---
Author Author JENNIFER DEL RIO [facility] Address Unknown Care Team Providers Care Plug Cutting Machine Operator Name Role Phone JENNIFER DEL RIO Unavailable PROBLEMS Unknown Problems ALLERGIES No Known Allergies ENCOUNTERS Encounter Location Date Diagnosis [facility] [id number] [place] [address] [phone] May, Dental examination Z01.20 [facility] [address] [id number] [place] [address] [phone] Oct, Dental examination Z01.20 and Dental caries K02.9 [facility] [address] [id number] [place] [address] [phone] Oct, Dental caries K02.9 [facility] [address] [id number] [place] [address] [phone] Sep, Dental examination Z01.20 [facility] [address] [id number] [place] [address] [phone] Aug, Dental examination Z01.20 [facility] [address] [id number] [place] [address] [phone] July, Dental examination Z01.20 [facility] [address] [id number] [phone] Jun, Dental examination Z01.20 [facility] [address] [id number] [place] [address] [phone] Apr, Dental examination Z01.20 [facility] [address] [id number] [place] [address] [phone] Apr, Dental examination Z01.20 [facility] [address] [id number][place] [phone] Mar, Dental examination Z01.20 [facility] [address] [id number] [place] [phone] Feb, Dental caries K02.9 [facility] [address] [id number] [place] [phone] Feb, [facility] [address] [facility] [id number] [place] [phone] Nov, Dental examination Z01.20 [facility] [address] [facility] [id number] [place] [phone] Feb, Encounter for dental examination Z01.20 IMMUNIZATIONS No Known Immunizations SOCIAL HISTORY Never Assessed REASON FOR VISIT te 1 hr per dds PLAN OF CARE Activity Details Follow Up prn Reason: VITAL SIGNS Blood pressure systolic 136 mmHg 2016-10-12 Blood pressure diastolic 55 mmHg 2016-10-12 MEDICATIONS Medication Instructions Dosage Frequency Start Date End Date Duration Status Alprazolam Active Clopidogrel Bisulfate Active Fareston Active Carvedilol Active Potassium Bicarb & Chloride Active Valium 5 MG take 2 tablets the night before and 2 tablets an hour prior to appt 0 days Active Furosemide Active Atorvastatin Calcium Active Valium 5 MG 2 tablets night before and 2 tablets 1 hr before extraction Feb, 1 days Active Aspir-81 Active Hydrocodone-Acetaminophen Active RESULTS No Results PROCEDURES Procedure Date Ordered Result Body Site EXTRAC ERUPTED TOOTH/EXPOSED ROOT Oct 12, 2016 INSTRUCTIONS MEDICATIONS ADMINISTERED No Known Medications MEDICAL (GENERAL) HISTORY Type Description Date Medical History HBP Medical History Diabetes Type II Medical History Blood Thinner Medical History Heart Disease Surgical History 5 stents in heart 2009 Surgical History cordinatal artary 2012
--- OUTSIDE RECORDS SUMMARY | 2018-07-01 10:39 | XMS REPORT ---
Author Author JENNIFER DEL RIO [facility] Address Unknown Care Team Providers Care Director Skills Name Role Phone JENNIFER DEL RIO Unavailable PROBLEMS Unknown Problems ALLERGIES No Known Allergies ENCOUNTERS Encounter Location Date Diagnosis [facility] [id number] [place] [address] [phone] May, Dental examination Z01.20 [facility] [address] [id number] [place] [address] [phone] Oct, Dental examination Z01.20 and Dental caries K02.9 [facility] [address] [id number] [place] [address] [phone] Oct, Dental caries K02.9 [facility] [address] [id number] [place] [address] [phone] Sep, Dental examination Z01.20 [facility] [id number] [place] [address] [phone] Aug, Dental examination Z01.20 [facility] [address] [id number] [phone] July, Dental examination Z01.20 [facility] [address] [id number] [phone] Jun, Dental examination Z01.20 [facility] [address] [id number] [place] [address] [phone] Apr, Dental examination Z01.20 [facility] [address] [id number] [place] [address] [phone] Apr, Dental examination Z01.20 [facility] [address] [id number], [place] [phone] Mar, Dental examination Z01.20 [facility] [address] [id number] [place] [phone] Feb, Dental caries K02.9 [facility] [address] [id number] [place] [phone] Feb, [facility] [address] [facility] [id number] [place] [phone] Nov, Dental examination Z01.20 [facility] [address] [facility] [id number] [place] [employer] [phone] Feb, Encounter for dental examination Z01.20 IMMUNIZATIONS No Known Immunizations SOCIAL HISTORY Never Assessed REASON FOR VISIT wax try in PLAN OF CARE Activity Details Follow Up prn Reason:Delivery of denture or Extraction VITAL SIGNS MEDICATIONS Medication Instructions Dosage Frequency Start Date End Date Duration Status Furosemide Active Carvedilol Active Atorvastatin Calcium Active Valium 5 MG take 2 tablets the night before and 2 tablets an hour prior to appt 0 days Active Fareston Active Clopidogrel Bisulfate Active Valium 5 MG 2 tablets night before and 2 tablets 1 hr before extraction Feb, 1 days Active Potassium Bicarb & Chloride Active Alprazolam Active Hydrocodone-Acetaminophen Active Aspir-81 Active RESULTS No Results PROCEDURES Procedure Date Ordered Result Body Site Dental no charge September 14, 2016 INSTRUCTIONS MEDICATIONS ADMINISTERED No Known Medications MEDICAL (GENERAL) HISTORY Type Description Date Medical History HBP Medical History Diabetes Type II Medical History Blood Thinner Medical History Heart Disease Surgical History 5 stents in heart 2009 Surgical History cordinatal artary 2012
--- OUTSIDE RECORDS SUMMARY | 2018-07-01 10:39 | XMS REPORT ---
Author Author QUANG JENNIFER Vasquez [facility] Address Unknown Care Team Providers Care Sample Supervisor Name Role Phone JENNIFER DEL RIO Unavailable PROBLEMS Unknown Problems ALLERGIES No Known Allergies ENCOUNTERS Encounter Location Date Diagnosis [facility] [address] [id number] [place] [address] [phone] Dec, [facility] [address] [place] [address] [phone] Nov, Dental examination Z01.20 [facility] [address] [id number] [place] [address] [phone] May, Dental examination Z01.20 [facility] [address] [id number] [place] [address] [phone] Oct, Dental examination Z01.20 and Dental caries K02.9 [facility] [address] [id number] [place] [address] [phone] Oct, Dental caries K02.9 [facility] [address] [id number] [place] [address] [phone] Sep, Dental examination Z01.20 [facility] [address] [id number] [place] [address] [phone] Aug, Dental examination Z01.20 [facility] [address] [id number] [place] [address] [phone] July, Dental examination Z01.20 [facility] [address] [id number] [place] [address] [phone] Jun, Dental examination Z01.20 [facility] [address] [id number] [place] [address] [phone] Apr, Dental examination Z01.20 [facility] [address] [id number] [place] [address] [place] [phone] Apr, 2016 Dental examination Z01.20 [facility] [address] [id number] [phone] Mar, Dental examination Z01.20 [facility] [address] [id number], [place] [phone] Feb, Dental caries K02.9 [facility] [address] [id number] [phone] Feb, [facility] [address] [id number] [phone] Nov, Dental examination Z01.20 [facility] [address] [place] [id number] [phone] Feb, Encounter for dental examination Z01.20 IMMUNIZATIONS No Known Immunizations SOCIAL HISTORY Never Assessed REASON FOR VISIT denture adj/ PLAN OF CARE Activity Details Follow Up prn Reason:hygiene VITAL SIGNS MEDICATIONS Medication Instructions Dosage Frequency Start Date End Date Duration Status Alprazolam Active Fareston Active Carvedilol Active Atorvastatin Calcium Active Clopidogrel Bisulfate Active Hydrocodone-Acetaminophen Active Aspir-81 Active Potassium Bicarb & Chloride Active Furosemide Active RESULTS No Results PROCEDURES Procedure Date Ordered Result Body Site LTD ORAL EVALUATION - PROBLEM FOCUS Nov 21, 2017 INSTRUCTIONS MEDICATIONS ADMINISTERED No Known Medications MEDICAL (GENERAL) HISTORY Type Description Date Medical History HBP Medical History Diabetes Type II Medical History Blood Thinner Medical History Heart Disease Surgical History 5 stents in heart 2009 Surgical History cordinatal artary 2012
--- OUTSIDE RECORDS SUMMARY | 2018-07-01 10:41 | XMS REPORT | Continuity of Care Document ---
Author Organization Unknown Address Unknown Allergies Active Description Code Type Severity Reaction Onset Reported/Identified Relationship to Patient Clinical Status Yes adenosine [id number] Drug Allergy Unknown N/A 12/26/2016 Yes adenosine [id number] Drug Allergy Mild N/A 01/02/2017 Medications There [...] FACP CCDS Ot 278.00 OBESITY, NOS 01/06/2013 LEON SPICER FACC, AMOL FACP CCDS Ot 327.23 OBSTRUCTIVE SLEEP APNEA (ADULT) (PEDIATR 01/06/2013 AMOL QUINTERO MD, FACC FACP CCDS Ot 414.01 CORONARY ATHEROSCLEROSIS OF [place] CORON 01/06/2013 AMOL QUINTERO MD, FACC FACP [...] V03.82 PROPHYLACTIC VACC AGAINST STREPTOCOCCUS 01/06/2013 LEON MD FACC, ALI FACP CCDS Ot V15.82 HISTORY OF TOBACCO USE 01/06/2013 LEON SPICER [facility], ALI FACP CCDS Ot V45.82 PERCUTANEOUS TRANSLUM CORON ANGIOPLASTY 01/06/2013 LEON SPICER FAC, ALI FACP CCDS Ot V58.63 LONG-TERM(CURRENT)USE OF ANTIPLATELET/AN 01/06/2013 LEON SPICER FAC, ALI FACP CCDS Ot V58.69 OTH MED,LT,CURRENT USE 01/06/2013 LEON SPICER [facility], ALI FACP CCDS Ot V85.37 BODY MASS INDEX 37.0-37.9, ADULT 06/20/2014 LENIN PHAN, SORAIDA Carter Ot 724.5 BACKACHE NOS 07/04/2014 SORAIDA ALATORRE L Ot 455.6 HEMORRHOIDS NOS 07/04/2014 SORAIDA ALATORRE L Ot 578.1 BLOOD IN STOOL 08/01/2014 JULES SPICER, MULU Mix Ot 789.01 08/18/2014 JULES SPICER, MULU Mix Ot 789.01 12/24/2016 Ot V72.84 EXAM PRE- OPERATIVE NOS 12/24/2016 MULU VICENTE MD Ot 789.01 ABDOMINAL PAIN, RIGHT UPPER QUADRANT 12/25/2016 Ot V72.84 EXAM PRE- OPERATIVE NOS 12/25/2016 JULES SPICER, MULU Mix Ot 789.01 ABDOMINAL PAIN, RIGHT UPPER QUADRANT 12/26/2016 HEATHER JEAN MD Ot R10.9 UNSPECIFIED ABDOMINAL PAIN 12/26/2016 HEATHER JEAN MD Ot R19.7 DIARRHEA, UNSPECIFIED 12/26/2016 TED SPICER, HEATHER Mix Ot Z01.818 ENCOUNTER FOR OTHER PREPROCEDURAL EXAMIN [...] TYPE 2 DIABETES MELLITUS WITHOUT COMPLIC 12/28/2016 HEATHER JEAN MD Ot E78.5 HYPERLIPIDEMIA, UNSPECIFIED 12/28/2016 HEATHER JEAN MD Ot I10 ESSENTIAL (PRIMARY) HYPERTENSION 12/28/2016 HEATHER JEAN MD Ot I25.10 ATHSCL HEART DISEASE OF [place] CORONARY 12/28/2016 HEATHER JEAN MD Ot K57.30 DVRTCLOS OF LG INT W/O PERFORATION OR AB 12/28/2016 HEATHER JEAN MD Ot K63.5 POLYP OF COLON 12/28/2016 HEATHER JEAN MD Ot R19.7 DIARRHEA, UNSPECIFIED 12/28/2016 HEATHER JEAN MD Ot Z79.899 OTHER [facility] (CURRENT) DRUG THERAPY 12/28/2016 HEATHER JEAN MD Ot Z87.891 PERSONAL HISTORY OF NICOTINE DEPENDENCE 12/28/2016 HEATHER JEAN MD Ot Z95.5 PRESENCE OF CORONARY ANGIOPLASTY IMPLANT 01/02/2017 Ot V72.84 EXAM PRE- OPERATIVE NOS 01/02/2017 JULES SPIECR, MULU Mix Ot 789.01 ABDOMINAL PAIN, RIGHT UPPER QUADRANT 01/03/2017 Ot V72.84 EXAM PRE- OPERATIVE NOS 01/03/2017 MULU VICENTE MD Ot 789.01 ABDOMINAL PAIN, RIGHT UPPER QUADRANT 2017 [place] [place] DOI Ot E11.22 TYPE 2 DIABETES MELLITUS W DIABETIC ORTHOPAEDIC PHYSICIAN ASSISTANT [address] YANY Ot E66.9 OBESITY, UNSPECIFIED [address] YANY Ot E78.00 PURE HYPERCHOLESTEROLEMIA, UNSPECIFIED 2017 [place] [place] DOI Ot F41.9 ANXIETY DISORDER, UNSPECIFIED [address] YAYN Ot G47.33 OBSTRUCTIVE SLEEP APNEA (ADULT) (PEDIATR [address] YANY Ot I10 ESSENTIAL (PRIMARY) HYPERTENSION [address] YANY Ot I21.4 NON-ST ELEVATION (NSTEMI) MYOCARDIAL INF [address] YANY Ot I25.118 ATHSCL HEART DISEASE OF [place] COR ART W [address] YANY Ot I27.20 PULMONARY HYPERTENSION, UNSPECIFIED [address] YANY Ot I73.9 PERIPHERAL VASCULAR DISEASE, UNSPECIFIED 2017 [place] DOI Ot I87.2 VENOUS INSUFFICIENCY (CHRONIC) (PERIPHER 2017 [place] [place] DOI Ot 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.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 2017 YNAY ROWLAND DO Ot J45.909 UNSPECIFIED ASTHMA, UNCOMPLICATED 2017 [place] [place] DOI Ot J98.4 OTHER DISORDERS OF LUNG 2017 YANY [place] DO Ot M19.91 PRIMARY OSTEOARTHRITIS, UNSPECIFIED SITE 2017 YANY [place] DO Ot M54.9 DORSALGIA, UNSPECIFIED 2017 [place] [place] DOI Ot N18.3 CHRONIC KIDNEY DISEASE, STAGE 3 (MODERAT 2017 YANY [place] DO Ot Z68.33 BODY MASS INDEX (BMI) 33.0-33.9, ADULT 2017 Y[place] DO Ot Z87.442 PERSONAL HISTORY OF URINARY CALCULI 2017 YANY [place] DO Ot Z87.891 PERSONAL HISTORY OF NICOTINE DEPENDENCE 2017 [place] [place] DOI Ot Z95.5 PRESENCE OF CORONARY ANGIOPLASTY IMPLANT 01/07/2017 HANNAH ROWLAND DOI Ot E11.22 TYPE 2 DIABETES MELLITUS W DIABETIC ORTHOPAEDIC PHYSICIAN ASSISTANT 01/07/2017 [place] DOI Ot E66.9 OBESITY, UNSPECIFIED 01/07/2017 HANNA[place] ROW[place] DOI Ot E78.00 PURE HYPERCHOLESTEROLEMIA, UNSPECIFIED 01/07/2017 HANNA[place] ROW[place] DOI Ot F41.9 ANXIETY DISORDER, UNSPECIFIED 01/07/2017 HANNAH ROWLAND DOI Ot G47.33 OBSTRUCTIVE SLEEP APNEA (ADULT) (PEDIATR 01/07/2017 HANNAH ROW[place] DOI Ot I10 ESSENTIAL (PRIMARY) HYPERTENSION 01/07/2017 HANNAH ROW[place] DOI Ot I21.4 NON-ST ELEVATION (NSTEMI) MYOCARDIAL INF 01/07/2017 HANNAH ROWLAND DOI Ot I25.118 ATHSCL HEART DISEASE OF [place]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 ART W 01/07/[address] YANY Ot I27.20 PULMONARY HYPERTENSION, UNSPECIFIED 01/07/2017 HANNAH R[place] DOI Ot I73.9 PERIPHERAL VASCULAR DISEASE, UNSPECIFIED 01/07/2017 HANNAH ROWLAND DOI Ot I87.2 VENOUS INSUFFICIENCY (CHRONIC) (PERIPHER 01/07/2017 [...] E11.22 TYPE 2 DIABETES MELLITUS W DIABETIC ORTHOPAEDIC PHYSICIAN ASSISTANT 01/07/[address] YANY Ot E66.9 OBESITY, [...] YANY Ot I25.118 ATHSCL HEART DISEASE OF [place] COR ART W 01/07/[address] YANY [...] E11.22 TYPE 2 DIABETES MELLITUS W DIABETIC ORTHOPAEDIC PHYSICIAN ASSISTANT 01/07/[address] YANY Ot E66.9 OBESITY, [...] YANY Ot I25.118 ATHSCL HEART DISEASE OF [place] COR ART W 01/07/[address] YANY [...] CHRONIC KIDNEY DISEASE, STAGE 3 (MODERAT 01/07/[address] YANY Ot Z68.33 BODY MASS INDEX (BMI) 33.0-33.9, ADULT 01/07/[address] YANY Ot Z87.442 PERSONAL HISTORY OF URINARY CALCULI 01/07/[address] YANY Ot Z87.891 PERSONAL HISTORY OF NICOTINE DEPENDENCE 01/07/[address] YANY Ot Z95.5 PRESENCE OF CORONARY ANGIOPLASTY IMPLANT 01/07/[address] YANY Ot E11.22 TYPE 2 DIABETES MELLITUS W DIABETIC ORTHOPAEDIC PHYSICIAN ASSISTANT 01/07/[address] YANY Ot E66.9 OBESITY, [...] YANY Ot I25.118 ATHSCL HEART DISEASE OF [place] COR ART W 01/07/[address] YANY [...] INDEX (BMI) 33.0-33.9, ADULT 01/07/2017 YANY [place] DO Ot Z87.442 PERSONAL HISTORY OF URINARY CALCULI 01/07/2017 YANY [place]OW[place] DO Ot Z87.891 PERSONAL HISTORY OF NICOTINE DEPENDENCE 01/07/2017 YANY [place]OW[place] DO Ot Z95.5 PRESENCE OF CORONARY ANGIOPLASTY IMPLANT 04/07/2017 BAM HERNÁNDEZ MD Ot E11.649 TYPE 2 DIABETES MELLITUS WITH HYPOGLYCEM 04/07/2017 BAM HERNÁNDEZ MD Ot E78.00 PURE HYPERCHOLESTEROLEMIA, UNSPECIFIED 04/07/2017 BAM HERNÁNDEZ MD Ot F41.9 ANXIETY DISORDER, UNSPECIFIED 04/07/2017 BAM HERNÁNDEZ MD Ot I10 ESSENTIAL (PRIMARY) HYPERTENSION 04/07/2017 BAM HERNÁNDEZ MD Ot I25.10 ATHSCL HEART DISEASE OF [place] CORONARY 04/07/2017 BAM HERNÁNDEZ MD Ot I25.2 OLD MYOCARDIAL INFARCTION 04/07/2017 BAM HERNÁNDEZ MD Ot N28.9 DISORDER OF KIDNEY AND URETER, UNSPECIFI 04/07/2017 BAM HERNÁNDEZ MD Ot R61 GENERALIZED HYPERHIDROSIS 04/07/2017 BAM HERNÁNDEZ MD Ot Z79.82 [place] (CURRENT) USE OF ASPIRIN 04/07/2017 BAM HERNÁNDEZ MD, Ot Z87.442 PERSONAL HISTORY OF URINARY CALCULI 04/07/2017 BAM HERNÁNDEZ MD Ot Z87.891 PERSONAL HISTORY OF NICOTINE DEPENDENCE 04/07/2017 BAM HERNÁNDEZ MD Ot Z88.8 ALLERGY STATUS TO OT DRUG/MEDS/BIOL SUB 04/07/2017 BAM HERNÁNDEZ MD Ot Z95.5 PRESENCE OF CORONARY ANGIOPLASTY IMPLANT 04/08/2017 BAM HERNÁNDEZ MD Ot E11.649 TYPE 2 DIABETES MELLITUS WITH HYPOGLYCEM 04/08/2017 BAM HERNÁNDEZ MD Ot E78.00 PURE HYPERCHOLESTEROLEMIA, UNSPECIFIED 04/08/2017 BAM HERNÁNDEZ MD Ot F41.9 ANXIETY DISORDER, UNSPECIFIED 04/08/2017 BAM HERNÁNDEZ MD Ot I10 ESSENTIAL (PRIMARY) HYPERTENSION 04/08/2017 BAM HERNÁNDEZ MD Ot I25.10 ATHSCL HEART DISEASE OF [place] CORONARY 04/08/2017 BAM HERNÁNDEZ MD Ot I25.2 OLD MYOCARDIAL INFARCTION 04/08/2017 BAM HERNÁNDEZ MD, Ot N28.9 DISORDER OF KIDNEY AND URETER, UNSPECIFI 04/08/2017 BAM HERNÁNDEZ MD Ot R61 GENERALIZED HYPERHIDROSIS 04/08/2017 BAM HERNÁNDEZ MD Ot Z79.82 [place] (CURRENT) USE OF ASPIRIN 04/08/2017 BAM HERNÁNDEZ MD Ot Z87.442 PERSONAL HISTORY OF URINARY CALCULI 04/08/2017 BAM HERNÁNDEZ MD Ot Z87.891 PERSONAL HISTORY OF NICOTINE DEPENDENCE 04/08/2017 BAM HERNÁNDEZ MD Ot Z88.8 ALLERGY STATUS TO OT DRUG/MEDS/BIOL SUB 04/08/2017 BAM HERNÁNDEZ MD Ot Z95.5 PRESENCE OF CORONARY ANGIOPLASTY IMPLANT 04/13/2017 BAM HERNÁNDEZ MD Ot E11.649 TYPE 2 DIABETES MELLITUS WITH HYPOGLYCEM 04/13/2017 BAM HERNÁNDEZ MD Ot E78.00 PURE HYPERCHOLESTEROLEMIA, UNSPECIFIED 04/13/2017 BAM HERNÁNDEZ MD Ot F41.9 ANXIETY DISORDER, UNSPECIFIED 04/13/2017 BAM HERNÁNDEZ MD Ot I10 ESSENTIAL (PRIMARY) HYPERTENSION 04/13/2017 BAM HERNÁNDEZ MD Ot I25.10 ATHSCL HEART DISEASE OF [place] CORONARY 04/13/2017 BAM HERNÁNDEZ MD Ot I25.2 OLD MYOCARDIAL INFARCTION 04/13/2017 BAM HERNÁNDEZ MD Ot N28.9 DISORDER OF KIDNEY AND URETER, UNSPECIFI 04/13/2017 BAM HERNÁNDEZ MD Ot R61 GENERALIZED HYPERHIDROSIS 04/13/2017 BAM HERNÁNDEZ MD Ot Z79.82 [place] (CURRENT) USE OF ASPIRIN 04/13/2017 BAM HERNÁNDEZ MD Ot Z87.442 PERSONAL HISTORY OF URINARY CALCULI 04/13/2017 BETTY SPICER, BAM Lora Ot Z87.891 PERSONAL HISTORY OF NICOTINE DEPENDENCE 04/13/2017 BETTY SPICER, BAM Lora Ot Z88.8 ALLERGY STATUS TO OTH DRUG/MEDS/BIOL SUB 04/13/2017 BETTY SPICER, BAM Lora Ot Z95.5 PRESENCE OF CORONARY ANGIOPLASTY IMPLANT 04/21/2017 ANNMARIE, JORDAN COPPER MINER BLASTING Ot E78.00 PURE HYPERCHOLESTEROLEMIA, UNSPECIFIED 04/21/2017 ANNMARIE, JORDAN COPPER MINER BLASTING Ot F41.9 ANXIETY DISORDER, UNSPECIFIED 04/21/2017 ANNMARIE, JORDAN COPPER MINER BLASTING Ot I10 ESSENTIAL (PRIMARY) HYPERTENSION 04/21/2017 ANNMARIE, JORDAN COPPER MINER BLASTING Ot I25.10 ATHSCL HEART DISEASE OF [place] CORONARY 04/21/2017 ANNMARIE, JORDAN COPPER MINER BLASTING Ot J06.9 ACUTE UPPER RESPIRATORY INFECTION, UNSPE 04/21/2017 ANNMARIE, JORDAN COPPER MINER BLASTING Ot R50.9 FEVER, UNSPECIFIED 04/21/2017 ANNMARIE, JORDAN COPPER MINER BLASTING Ot Z79.82 [place] (CURRENT) USE OF ASPIRIN 04/21/2017 ANNMARIE, JORDAN COPPER MINER BLASTING Ot Z82.49 FAMILY HX OF ISCHEM HEART DIS AND OTH DI 04/21/2017 ANNMARIE JORDAN COPPER MINER BLASTING Ot Z87.19 PERSONAL HISTORY OF OTHER DISEASES OF TH 04/21/2017 ANNMARIE JORDAN COPPER MINER BLASTING Ot Z87.442 PERSONAL HISTORY OF URINARY CALCULI 04/21/2017 ANNMARIE JORDAN COPPER MINER BLASTING Ot Z88.8 ALLERGY STATUS TO OTH DRUG/MEDS/BIOL SUB 04/21/2017 ANNMARIE JORDAN COPPER MINER BLASTING Ot Z95.5 PRESENCE OF CORONARY ANGIOPLASTY IMPLANT 04/26/2017 MULU VICENTE MD Ot I25.2 OLD MYOCARDIAL INFARCTION 04/26/2017 MULU VICENTE MD Ot Z09 ENCNTR FOR F/U EXAM AFT TRTMT FOR COND O 05/29/2017 MULU VICENTE MD Ot I25.2 OLD MYOCARDIAL INFARCTION 05/29/2017 MULU VICENTE MD Ot Z09 ENCNTR FOR F/U EXAM AFT TRTMT FOR COND O 06/23/2017 MULU VICENTE MD Ot I25.2 OLD MYOCARDIAL INFARCTION 06/23/2017 MULU VICENTE MD Ot Z09 ENCNTR FOR F/U EXAM AFT TRTMT FOR COND O 06/24/2017 MULU VICENTE MD Ot I25.2 OLD MYOCARDIAL INFARCTION 06/24/2017 MULU VICENTE MD Ot Z09 ENCNTR FOR F/U EXAM AFT TRTMT FOR COND O 06/26/2017 MULU VICENTE MD Ot 789.01 ABDOMINAL PAIN, RIGHT UPPER QUADRANT 06/26/2017 MULU VICENTE MD Ot I25.2 OLD MYOCARDIAL INFARCTION 06/26/2017 MULU VICENTE MD Ot Z09 ENCNTR FOR F/U EXAM AFT TRTMT FOR COND O 06/27/2017 MULU VICENTE MD Ot 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, 06/27/2017 MULU VICENTE MD Ot M51.36 OTHER INTERVERTEBRAL DISC DEGENERATION, 07/02/2017 MULU VICENTE MD Ot 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, 07/02/2017 MULU VICENTE MD Ot M51.36 OTHER INTERVERTEBRAL DISC DEGENERATION, 07/12/2017 MULU VICENTE MD Ot M48.061 SPINAL STENOSIS, LUMBAR REGION WITHOUT N 07/12/2017 MULU VICENTE MD Ot M51.26 OTHER INTERVERTEBRAL DISC DISPLACEMENT, 07/12/2017 MULU VICENTE MD Ot M51.36 OTHER INTERVERTEBRAL DISC DEGENERATION, 07/12/2017 MULU VICENTE MD Ot M99.73 CONN TISS AND DISC STENOS OF [place] 07/12/2017 MULU VICENTE MD Ot Z13.820 ENCOUNTER FOR SCREENING FOR OSTEOPOROSIS 07/12/2017 MULU VICENTE MD Ot M48.061 SPINAL STENOSIS, LUMBAR REGION WITHOUT N 07/12/2017 MULU VICENTE MD D Ot M51.26 OTHER INTERVERTEBRAL DISC DISPLACEMENT, 07/12/2017 MULU VICENTE MD Ot M51.36 OTHER INTERVERTEBRAL DISC DEGENERATION, 07/12/2017 MULU VICENTE MD Ot M99.73 CONN TISS AND DISC STENOS OF [place] 07/12/2017 MULU VICENTE MD Ot Z13.820 ENCOUNTER FOR SCREENING FOR OSTEOPOROSIS 07/17/2017 MULU VICENTE MD Ot 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, 07/17/2017 MULU VICENTE MD Ot M51.36 OTHER INTERVERTEBRAL DISC DEGENERATION, 07/25/2017 MULU VICENTE MD Ot 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, 07/25/2017 MULU VICENTE MD Ot M51.36 OTHER INTERVERTEBRAL DISC DEGENERATION, 07/31/2017 MULU VICENTE MD Ot M48.061 SPINAL STENOSIS, LUMBAR REGION WITHOUT N 07/31/2017 MULU VICENTE MD Ot M51.26 OTHER INTERVERTEBRAL DISC DISPLACEMENT, 07/31/2017 MULU VICENTE MD Ot M51.36 OTHER INTERVERTEBRAL DISC DEGENERATION, 07/31/2017 MULU VICENTE MD Ot M99.73 CONN TISS AND DISC STENOS OF [place] 07/31/2017 MULU VICENTE MD Ot Z13.820 ENCOUNTER FOR SCREENING FOR OSTEOPOROSIS 08/05/2017 MULU VICENTE MD Ot M48.061 SPINAL STENOSIS, LUMBAR REGION WITHOUT N 08/05/2017 MULU VICENTE MD Ot M51.26 OTHER INTERVERTEBRAL DISC DISPLACEMENT, 08/05/2017 MULU VICENTE MD Ot M51.36 OTHER INTERVERTEBRAL DISC DEGENERATION, 08/05/2017 MULU VICENTE MD Ot M99.73 CONN TISS AND DISC STENOS OF [place] 08/05/2017 MULU VICENTE MD Ot Z13.820 ENCOUNTER FOR SCREENING FOR OSTEOPOROSIS 11/21/2017 MULU VICENTE MD Ot 789.01 ABDOMINAL PAIN, RIGHT UPPER QUADRANT 11/21/2017 MULU VICENTE MD Ot I25.2 OLD MYOCARDIAL INFARCTION 11/21/2017 MULU VICENTE MD Ot Z09 ENCNTR FOR F/U EXAM AFT TRTMT FOR COND O 11/21/2017 MULU VICENTE MD Ot 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, 11/21/2017 MULU VICENTE MD Ot M51.36 OTHER INTERVERTEBRAL DISC DEGENERATION, 11/21/2017 MULU VICENTE MD Ot M48.061 SPINAL STENOSIS, LUMBAR REGION WITHOUT N 11/21/2017 MULU VICENTE MD Ot M51.26 OTHER INTERVERTEBRAL DISC DISPLACEMENT, 11/21/2017 MULU VICENTE MD Ot M51.36 OTHER INTERVERTEBRAL DISC DEGENERATION, 11/21/2017 MULU VICENTE MD Ot M99.73 CONN TISS AND DISC STENOS OF [place] 11/21/2017 MULU VICENTE MD Ot Z13.820 ENCOUNTER FOR SCREENING FOR OSTEOPOROSIS 11/21/2017 MULU VICENTE MD Ot Z12.31 ENCNTR SCREEN MAMMOGRAM FOR MALIGNANT NE 11/21/2017 MULU VICENTE MD Ot Z12.31 ENCNTR SCREEN MAMMOGRAM FOR MALIGNANT NE 11/22/2017 JULES SPICER MULU Maria Del Rosario Ot R05 COUGH 11/22/2017 MULU VICENTE MD Ot Z12.31 ENCNTR SCREEN MAMMOGRAM FOR MALIGNANT NE 12/11/2017 MULU VICENTE MD Ot R05 COUGH 12/11/2017 MULU VICENTE MD Ot Z12.31 ENCNTR SCREEN MAMMOGRAM FOR MALIGNANT NE 12/19/2017 MULU VICENTE MD Ot R05 COUGH 12/19/2017 MULU VICENTE MD Ot Z12.31 ENCNTR SCREEN MAMMOGRAM FOR MALIGNANT NE 06/27/2018 MULU VICENTE MD Ot 789.01 ABDOMINAL PAIN, RIGHT UPPER QUADRANT 06/27/2018 MULU VICENTE MD Ot I25.2 OLD MYOCARDIAL INFARCTION 06/27/2018 JULES SPICER, MULU Mix Ot Z09 ENCNTR FOR F/U EXAM AFT TRTMT FOR COND O 06/27/2018 MULU VICENTE MD Ot 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, 06/27/2018 MULU VICENTE MD Ot M51.36 OTHER INTERVERTEBRAL DISC DEGENERATION, 06/27/2018 MULU VICENTE MD Ot M48.061 SPINAL STENOSIS, LUMBAR REGION WITHOUT N 06/27/2018 MULU VICENTE MD Ot M51.26 OTHER INTERVERTEBRAL DISC DISPLACEMENT, 06/27/2018 MULU VICENTE MD Ot M51.36 OTHER INTERVERTEBRAL DISC DEGENERATION, 06/27/2018 MULU VICENTE MD Ot M99.73 CONN TISS AND DISC STENOS OF [place] 06/27/2018 MULU VICENTE MD Ot Z13.820 ENCOUNTER FOR SCREENING FOR OSTEOPOROSIS 06/27/2018 MULU VICENTE MD Ot R05 COUGH 06/27/2018 JULES SPICER, MULU Mix Ot Z12.31 ENCNTR SCREEN MAMMOGRAM FOR MALIGNANT NE Procedures Code Description Performed By [place]formed On [id number] DILATION OF CORONARY ARTERY, ONE ARTERY, 01/02/2017 [id number] MEASURE OF CARDIAC SAMPL PRESSURE, L H 01/02/2017 [id number] FLUOROSCOPY OF MULT COR ART USING L OSM 01/02/2017 [id number] FLUOROSCOPY OF LEFT HEART USING LOW OSMO [...] <=0.05 miu/l (units/ volume) 1.24 u[iU]/mL 0.35-4.94 Capillary blood glucose measurement by glucometer (mass/volume) - 04/21/17 15: 45 Capillary blood glucose measurement by glucometer (mass/volume) 117 mg/dL 70-110 Influenza virus A and B antigen detection - 04/21/17 15:50 FLU RESULT NEGATIVE FOR INFLUENZA A AND B ANTIGENS BY [facility] Complete blood count (CBC) with automated white blood cell (WBC) differential - 04/21/17 16:08 Blood leukocytes automated count (number/volume) 6.9 10*3/uL 4.3-11.0 Blood erythrocytes automated count (number/volume) 4.03 10*6/uL 4.35-5.85 Venous blood hemoglobin measurement (mass/volume) 12.2 g/dL 11.5-16.0 Blood hematocrit (volume fraction) 37 % 35-52 Automated erythrocyte mean corpuscular volume 92 [foz_us] 80-99 Automated erythrocyte mean corpuscular hemoglobin (mass per erythrocyte) 30 pg 25-34 Automated erythrocyte mean corpuscular hemoglobin concentration measurement ( mass/volume) 33 g/dL 32-36 Automated erythrocyte distribution width ratio 14.1 % 10.0-14.5 Automated blood platelet count (count/volume) 210 10*3/uL 130-400 Automated blood platelet mean volume measurement 10.0 [foz_us] 7.4-10.4 Automated blood neutrophils/100 leukocytes 73 % 42-75 Automated blood lymphocytes/100 leukocytes 8 % 12-44 Blood monocytes/100 leukocytes 18 % 0-12 Automated blood eosinophils/100 leukocytes 0 % 0-10 Automated blood basophils/100 leukocytes 1 % 0-10 Blood neutrophils automated count (number/volume) 5.1 10*3 1.8-7.8 Blood lymphocytes automated count (number/volume) 0.6 10*3 1.0-4.0 Blood monocytes automated count (number/volume) 1.2 10*3 0.0-1.0 Automated eosinophil count 0.0 10*3/uL 0.0-0.3 Automated blood basophil count (count/volume) 0.0 10*3/uL 0.0-0.1 PT panel in platelet poor plasma by coagulation assay - 04/21/17 16:08 Prothrombin time (PT) in platelet poor plasma by coagulation assay 13.8 s 12.2-14.7 INR in platelet poor plasma or blood by coagulation assay 1.1 0.8-1.4 Activated partial thromboplastin time (aPTT) in platelet poor plasma bycoagulation assay - 04/21/17 16:08 Activated partial thromboplastin time (aPTT) in platelet poor plasma bycoagulation assay 26 s 24-35 Comprehensive metabolic panel - 04/21/17 16:08 Serum or plasma sodium measurement (moles/volume) 139 mmol/L 135-145 Serum or plasma potassium measurement (moles/volume) 4.3 mmol/L 3.6-5.0 Serum or plasma chloride measurement (moles/volume) 101 mmol/L 98-107 Carbon dioxide 24 mmol/L 21-32 Serum or plasma anion gap determination (moles/volume) 14 mmol/L 5-14 Serum or plasma urea nitrogen measurement (mass/volume) 21 mg/dL 7-18 Serum or plasma creatinine measurement (mass/volume) 1.12 mg/dL 0.60-1.30 Serum or plasma urea nitrogen/creatinine mass ratio 19 NRG Serum or plasma creatinine measurement with calculation of estimated glomerular filtration rate 47 NRG Serum or plasma glucose measurement (mass/volume) 116 mg/dL 70-105 Serum or plasma calcium measurement (mass/volume) 9.3 mg/dL 8.5-10.1 Serum or plasma total bilirubin measurement (mass/volume) 0.7 mg/dL 0.1-1.0 Serum or plasma alkaline phosphatase measurement (enzymatic activity/volume) 68 U/L 40-136 Serum or plasma aspartate aminotransferase measurement (enzymatic activity/ volume) 23 U/L 5-34 Serum or plasma alanine aminotransferase measurement (enzymatic activity/volume ) 21 U/L 0-55 Serum or plasma protein measurement (mass/volume) 7.1 g/dL 6.4-8.2 Serum or plasma albumin measurement (mass/volume) 4.0 g/dL 3.2-4.5 Magnesium - 04/21/17 16:08 Magnesium 2.2 mg/dL 1.8-2.4 Serum or plasma troponin i.cardiac measurement (mass/volume) - 04/21/17 16:08 Serum or plasma troponin i.cardiac measurement (mass/volume) < ng/ mL <0.30 Myoglobin, serum - 04/21/17 16:08 Myoglobin, serum 63.5 ng/mL 10.0-92.0 Encounters ACCT No. Visit Date/Time Discharge Status Pt. Type Provider Facility Loc./Unit Complaint [id number] 11/21/2017 15:26:00 11/21/2017 23:59:59 CLS Outpatient MULU VICENTE MD [facility] RAD SCREENING MAMMOGRAM FOR MALIGNANT NEOPLASM,COUGH [id number] 07/11/2017 11:32:00 07/11/2017 23:59:59 CLS Outpatient MULU VICENTE MD [facility] RAD DEGEN OF LUMB INTERVERT DISC;OSTEOPOROSIS [id number] 06/26/2017 15:49:00 06/26/2017 23:59:59 CLS Outpatient MULU VICENTE MD [facility] RAD M54.5 [id number] 06/24/2017 08:00:00 06/24/2017 23:59:59 CLS Preadmit MULU VICENTE MD [facility] CR AMI [id number] 05/06/2017 08:20:00 06/23/2017 00:01:00 DIS Outpatient MULU VICENTE MD [facility] CR AMI [id number] 04/21/2017 15:31:00 04/21/2017 18:10:00 DIS Emergency JORDAN ANGUIANO [facility] ER FLU SYMPTOMS AND CP [id number] 04/07/2017 16:15:00 04/07/2017 18:21:00 DIS Emergency BAM HERNÁNDEZ MD [facility] ER BODY TINGLING/HOT FLASHES [id number] 01/03/2017 14:08:00 2017 11:49:00 DIS Inpatient YANY ROWLAND DO [facility] ICU CHEST PAIN R/O ACS [id number] 12/28/2016 08:35:00 12/28/2016 10:50:00 DIS Outpatient HEATHER JEAN MD [facility] ENDO DIARRHEA, ABDOMINAL PAIN [id number] 12/26/2016 10:00:00 12/26/2016 10:27:00 DIS Outpatient HEATHER JEAN MD [facility] PREOP DIARRHEA, ABDOMINAL PAIN [id number] 07/05/2014 10:00:00 07/05/2014 23:59:59 CLS Preadmit MULU VICENTE MD [facility] CARD RUQ PAIN [id number] 07/04/2014 18:03:00 07/04/2014 21:58:00 DIS Emergency SORAIDA ALATORRE [facility] ER BLOOD IN STOOL [id number] 06/25/2014 08:03:00 06/25/2014 23:59:59 CLS Outpatient MULU VICENTE MD [facility] RAD RIGHT UPPER QUADRANT PAIN [id number] 06/20/2014 12:44:00 06/20/2014 17:30:00 DIS Emergency SORAIDA ALATORRE [facility] ER BACK PAIN [id number] 01/06/2013 07:26:00 01/06/2013 12:45:00 DIS Outpatient LEON SPICER FACC, AMOL VARELA CCDS [facility] SOB,CAD,HTN, DM,HYPERLIPIDEMIA [id number] 07/01/2018 13:00:00 PEN Preadmit AMOL QUINTERO MD, FACC, FACP CCDS [facility] CAD, ANGINA, SOB, HTN, HYPERLIPIDEMIA [id number] 06/11/2012 08:46:00 Document Registration [id number] 09/04/2011 07:27:00 Document Registration [id number] 09/03/2011 08:18:00 Document Registration
[2018-07-01] MEDS ORDERED: HEParin (CATH LAB) 2,000 ML IV ONE (10:53)
[2018-07-01] MEDS ORDERED: LIDOCAINE 1% INJ 20 ML 20 ML VIAL ONE ×2 (10:53→13:10)
[2018-07-01] MEDS ORDERED: NS IV 1000 ML 1,000 ML ONE (10:53)
[2018-07-01] MEDS ORDERED: NS IV 1000 ML 1,000 ML IV SCH ×2 (11:00→14:07)
[2018-07-01 11:18] LABS: HEMOGLOBIN 13.3 G/DL (11.5-16.0); MEAN PLATELET VOLUME 9.8 FL (7.4-10.4); RED CELL DISTRIBUTION WIDTH 14.2 % (10.0-14.5); WHITE BLOOD COUNT 9.3 10^3/uL (4.3-11.0)
[2018-07-01 11:29] LABS: INR 0.9 (0.8-1.4); PROTHROMBIN TIME PATIENT 12.7 SEC (12.2-14.7)
[2018-07-01 11:35] LABS: ALBUMIN 4.2 GM/DL (3.2-4.5); BILIRUBIN,TOTAL 0.7 MG/DL (0.1-1.0); CALCIUM 9.7 MG/DL (8.5-10.1); CREATININE SERUM 1.3 MG/DL (0.60-1.30); TOTAL PROTEIN 7.7 GM/DL (6.4-8.2)
[2018-07-01] MEDS ORDERED: CYAN100088 PO (11:38)
[2018-07-01] MEDS ORDERED: MIDAZOLAM 5 MG/5 ML (VERSED) VIAL ONE (12:23)
[2018-07-01] MEDS ORDERED: fentaNYL INJECTION 100 MCG/2 ML AMP ONE (12:24)
--- NOTE | 2018-07-01 12:53 | Cardiac Procedure Note-CS/ASA ---
Pre-Procedure Note Pre-Op Procedure Note H&P Reviewed The H&P was reviewed, patient examined and no changes noted. Date H&P Reviewed: Jul 01, 2018 Time H&P Reviewed: 12:52 Conscious Sedation Pre-Proced Time 12:52 ASA Score 3 For ASA 3 and 4: Consider anesthesia and medical clearance. Also, for patients with a history of failed moderate sedation consider anesthesia. Airway Lungs Heart ASA score ASA 1: a normal healthy patient ASA 2: a patient with a mild systemic disease (mid diabetes, controlled hypertension, obesity ASA 3: a patient with a severe systemic disease that limits activity (angina , COPD, prior Myocardial infarction) ASA 4: a patient with an incapacitating disease that is a constant threat to life (CHF, renal failure) ASA 5: a moribund patient not expected to survive 24 hrs. (ruptured aneurysm) ASA 6: a declared brain- patient whose organs are being harvested. For emergent operations, add the letter E after the classification Mallampati Classification Grade 3 Sedation Plan Analgesia, Amnesia, Plan communicated to team members, Discussed options with patient/fam, Discussed risks with patient/fam The patient is an appropriate candidate to undergo the planned procedure, sedation, and anesthesia. The patient immediately re-assessed prior to indication. AMOL QUINTERO MD FACP FAC CCDS Jul 01, 2018 12:53
[2018-07-01] MEDS ORDERED: NITRO DRIP 25000 MCG/D5W 250 ML IV ONE (13:25)
--- NOTE | 2018-07-01 14:11 | Discharge Inst-Post CATH ---
Discharge Inst-CATH/EP Post Cardiac Cath/EP D/C Inst Follow Up/Plan F/u with Dr Sage in 2 weeks <b>CARDIAC CATH/EP PROCEDURE DISCHARGE INSTRUCTIONS</b> ACTIVITY * Go Home directly and rest. * Limit activity of the leg (or wrist if it was used) for 7 days including aerobics, swimming, jogging, bicycling, etc. * Restrict stair-climbing for 7 days if possible, if not, climb up with your non -cath leg, then bring together on the same step. * Avoid lifting, pushing, pulling or excessive movement of the affected extremity for 7 days. * Customary sexual activity may be resumed after 2 days-use caution not to use a position that strains or causes pain to the affected extremity. * No driving for 24 hours. * NO SMOKING. * Avoid straining for bowel movements for 7 days. * Gentle walking on level ground is allowed. * Returning to work will depend on the type of procedure and the results. Your doctor will discuss this with you. CALL YOUR DOCTOR FOR ANY OF THE FOLLOWING: *If bleeding from the puncture site occurs- Apply gentle pressure to site with clean cloth and call your doctor or EMS. * If a knot or lump forms under the skin, increases in size, or causes pain. * If bruising appears to be worsening or moving further down your leg instead of disappearing. * Temperature above 101 F. CARE OF YOUR GROIN INCISION; * Bruising or purple discoloration of the skin near the puncture site is common. * You may shower only, no bathtub bathing for 5 days. Be careful to avoid slipping as your leg may feel stiff. * If a closure device was used on your femoral artery, please see the attached guide regarding care of the device and your leg. * Leave dressing on FOR 24 hours. CARE OF YOUR WRIST INCISION; * Bruising or purple discoloration of the skin near the puncture site is common. * You may shower. * DO NOT submerge wrist. * Leave dressing on FOR 24 hours. [facility] Jul 01, 2018 14:11
--- NOTE | 2018-07-01 14:12 | Discharge Inst-Cardiology ---
Discharge Inst-Cardiac Discharge Medications Continued Medications: Alprazolam (Alprazolam) 0.25 Mg Tablet 0.25 MG PO DAILY, TAB Aspirin (Aspirin) 81 Mg Tab.chew 81 MG PO DAILY, #30 TAB 5 Refills Clopidogrel Bisulfate (Clopidogrel) 75 Mg Tablet 75 MG PO DAILY, TAB Cyanocobalamin (Vitamin B-12) (B-12) 1,000 Mcg Tablet 1000 MCG PO monthly, TAB Dapagliflozin Propanediol (Farxiga) 5 Mg Tablet 5 MG PO DAILY, TAB Furosemide (Furosemide) 40 Mg Tablet 40 MG PO DAILY, TAB Hydrocodone/Acetaminophen (Hydrocodon-Acetaminophn 10-325) 1 Each Tablet 1 TAB PO Q4H PRN for PAIN-MODERATE, TAB Lisinopril (Lisinopril) 5 Mg Tablet 5 MG PO DAILY@0900, #30 TAB 5 Refills Metoprolol Succinate (Metoprolol Succinate) 50 Mg Tab.er.24h 50 MG PO DAILY, #30 TAB 5 Refills Nortriptyline HCl (Nortriptyline HCl) 25 Mg Capsule 25 MG PO HS, CAP Pantoprazole Sodium (Pantoprazole Sodium) 40 Mg Tablet.dr 40 MG PO DAILY, TAB Rosuvastatin Calcium (Rosuvastatin Calcium) 40 Mg Tablet 40 MG PO HS, TAB Topiramate (Topiramate) 25 Mg Tablet 25 MG PO BID, TAB AMOL QUINTERO MD FACP FAC CCDS Jul 01, 2018 14:12
[2018-07-01] MEDS ORDERED: PATIENT MAY USE OWN MEDS, ALL PO SCH (14:15)
--- NOTE | 2018-07-01 16:15 | NUR ---
NOTIFIED PER ER THAT NO FLIGHT SERVICE AVAILABLE FOR TRANSFER DUE TO INCLEMENT WEATHER.
[2018-07-01 16:18] LABS: HEMOGLOBIN 10.9 G/DL (11.5-16.0); MEAN PLATELET VOLUME 9.7 FL (7.4-10.4); RED CELL DISTRIBUTION WIDTH 14.2 % (10.0-14.5); WHITE BLOOD COUNT 15.1 10^3/uL (4.3-11.0)
--- NOTE | 2018-07-01 16:21 | Diagnostic Imaging Report ---
Indication: Hypotension. Technique: Multiple real time grayscale images were obtained of the right lower quadrant in various projections. Findings: There is a large heterogeneous fluid collection that appears to be intraperitoneal or intrapelvic in the right lower quadrant. This measures 10.3 x 4.4 x 6 cm. There is also a questionable fluid collection posterior to this. Impression: Complex fluid collection in the right lower quadrant suspect for hematomas/hemorrhage. Results of this exam were discussed with Dr. Sage by the cable layer. Dictated by: Dictated on workstation # [id number]
--- NOTE | 2018-07-01 16:30 | NUR ---
1ST UNIT OF PRBC'S INITIATED. UNIT#[id number]. VERIFIED WITH TUNDE DAVILA INFUSING RAPIDLY.
--- NOTE | 2018-07-01 16:45 | NUR ---
1ST UNIT PRBC'S COMPLETE. NO SX/SX OF TRANSFUSION REACTION. 2ND UNIT INITIATED. UNIT#[id number]. INFUSING RAPIDLY.
--- NOTE | 2018-07-01 17:06 | Short Stay Summary ---
History of Present Illness History of Present Illness Reason for visit/HPI Hypotension after card cath Date of Admission 07/01/18 Date of Discharge 07/01/18 Time Seen by Provider: 15:40 Attending Physician Perez Quintero MD [facility] Admitting Physician Celso Wong MD Consult 78 yo woman with CAD and shortness of breath and CAD who underwent card cath today and then abd aortic and bilat peripheral angio because of some difficulty with wire advancement across the R common iliac. Was found to have mod CAD, patent previous stents, mod abd ao ectasia and abd aortic calcification and 50% L renal artery stenosis and 70% stenosis in R common iliac that was immediately preceded and followed by aneurysmal dilatations and pressure gradient across which was 15-20 mmHg. This was managed conservatively. Mynx was used for hemostasis post cath. In the recovery area, she developed hypotension and also was reporting groin and back pain. Firm pressure has been held above the access site. Bedside groin and abd u/s has shown intraabdominal blood that appears coagulated. iv fluids have and pressors have been given and are being given. Blood is being given after type and cross. Two peripheral lines are running. We have asked Dr Farias in intensive care consult. Central line has been initiated. We have again reviewed abd aortic and peripheral angio done immediately prior to sheath removal. This does not show any obvious site of active bleed. I have a spoken with Dr Reeves and Dr Kamara of the CV surgical service at [facility]. They have accepted the pt in transfer. We have made every effort to stabilize further prior to transfer. Due to bad weather, transfer cannot be by air ambulance. We have called the ground ambulance Allergies and Home Medications Allergies Coded Allergies: adenosine (Verified Adverse Reaction, Mild, 01/02/17) FLUSHED/NAUSEA Home Medications Alprazolam 0.25 Mg Tablet, 0.25 MG PO DAILY, (Reported) Aspirin 81 Mg Tab.chew, 81 MG PO DAILY Prescribed by: AAKASH LAZCANO on 01/04/17 0836 Clopidogrel Bisulfate 75 Mg Tablet, 75 MG PO DAILY, (Reported) Cyanocobalamin (Vitamin B-12) 1,000 Mcg Tablet, 1,000 MCG PO monthly, (Reported) Dapagliflozin Propanediol 5 Mg Tablet, 5 MG PO DAILY, (Reported) Furosemide 40 Mg Tablet, 40 MG PO DAILY, (Reported) Hydrocodone/Acetaminophen 1 Each Tablet, 1 TAB PO Q4H PRN for PAIN-MODERATE, ( Reported) Lisinopril 5 Mg Tablet, 5 MG PO DAILY@0900 Prescribed by: AAKASH LAZCANO on 01/04/17 0836 Metoprolol Succinate 50 Mg Tab.er.24h, 50 MG PO DAILY Prescribed by: AAKASH LAZCANO on 01/04/17 0836 Nortriptyline HCl 25 Mg Capsule, 25 MG PO HS, (Reported) Pantoprazole Sodium 40 Mg Tablet.dr, 40 MG PO DAILY, (Reported) Rosuvastatin Calcium 40 Mg Tablet, 40 MG PO HS, (Reported) Topiramate 25 Mg Tablet, 25 MG PO BID, (Reported) Patient Home Medication List Home Medication List Reviewed: Yes Past Mdnqlkh-Nctiab-Gqyomn Hx Patient Social History Alcohol Use: Denies Use Recreational Drug Use: No Smoking Status: Former Smoker Former Smoker, Quit: Dec 26, 2009 Type Used: Cigarettes 2nd Hand Smoke Exposure: No Recent Foreign Travel: No Contact w/other who traveled: No Recent Hopitalizations: No Immunizations Up To Date Date of Pneumonia Vaccine: Jan 06, 2013 Date of Influenza Vaccine: Dec 17, 2016 Seasonal Allergies Seasonal Allergies: No Surgeries Yes (STENTS X5, CAROTID) Coronary Stent Respiratory Yes Cardiovascular Yes Coronary Artery Disease, Heart Murmur, High Cholesterol, Hypertension Neurological No Reproductive System Hx Reproductive Disorders: No Sexually Transmitted Disease: No HIV/AIDS: No Genitourinary Yes Kidney Stones Gastrointestinal Yes (ABDOMINAL PAIN) Chronic Diarrhea Musculoskeletal Yes Arthritis, Chronic Back Pain Endocrine History of Endocrine Disorders: Yes HEENT History of HEENT Disorders: No Loss of Vision: Denies Hearing Impairment: Denies Cancer No Psychosocial History of Psychiatric Problem: Yes Behavioral Health Disorders: Anxiety Integumentary History of Skin or Integumenta: No Blood Transfusions History of Blood Disorders: No Adverse Reaction to a Blood Tr: No Family Medical History Significant Family History: No Pertinent Family Hx Family Hx: Arthritis 19 FATHER 19 MOTHER G8 BROTHER G8 SISTER G8 SISTER Cardiovascular disease 19 MOTHER Diabetes mellitus 19 MOTHER G8 SISTER G8 SISTER Myocardial infarction G8 SISTER Parkinson's disease G8 SISTER Review of Systems Constitutional: malaise, weakness Cardiovascular: see HPI Gastrointestinal: see HPI Genitourinary: No dysuria Musculoskeletal: see HPI Skin: other (groin bruising, mild to mod) Physical Exam Vital Signs Vital Signs - First Documented 07/01/18 10:47 Temp 97.5 Pulse 88 Resp 16 B/P (MAP) 150/71 (97) Pulse Ox 94 O2 Delivery Room Air Capillary Refill : Height, Weight, BMI Height: 5'1.00" Weight: 192lbs. 7.0oz. 87.485512vm; 36.4 BMI Method:Stated General Appearance: Moderate Distress Eyes: Bilateral Eye PERRL, Bilateral Eye EOMI Respiratory: Other (fair to good bilat air entry) Cardiovascular: Regular Rate, Rhythm, Systolic Murmur (soft Orly AT card base) Gastrointestinal: Other (mod to marked tenderness in the lower abdomen and suprapubic area and the R groin) Extremity: Other (chronic nonpitting edema) Neurologic/Psychiatric: Oriented x3, Other (able to move all limbs equally) Clinical Quality Measures Admission Status Admission Status: Other (Same Day Surgery) Short Stay Diagnosis Discharge Diagnosis-Short Stay Final Discharge Diagnosis: Retroperitoneal bleed post card cath on 07/01/18, hemodynamically significant Mod CAD and normal LVEF on card cath of 07/01/18 Abd aortic ectasia and calcification and 50% L renal artery stenosis on abd aortic angio of 07/01/18 70-80% R common iliac stenosis with 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 and proximal portions of the R external and R internal iliac arteries CKD 3 Obesity-hypoventilation and JARRED and h/o mild to mod pulmonary hypertension Conclusion Labs Laboratory Tests 07/01/18 11:07: White Blood Count 9.3, Red Blood Count 4.49, Hemoglobin 13.3, Hematocrit 42, Mean Corpuscular Volume 93, Mean Corpuscular Hemoglobin 30, Mean Corpuscular Hemoglobin Concent 32, Red Cell Distribution Width 14.2, Platelet Count 267, Mean Platelet Volume 9.8, Prothrombin Time 12.7, INR Comment 0.9, Activated Partial Thromboplast Time 30, Sodium Level 140, Potassium Level 4.0, Chloride Level 103, Carbon Dioxide Level 25, Anion Gap 12, Blood Urea Nitrogen 20H, Creatinine 1.30, Estimat Glomerular Filtration Rate 40, BUN/Creatinine Ratio 15 , Glucose Level 104, Calcium Level 9.7, Corrected Calcium 9.5, Total Bilirubin 0.7, Aspartate Amino Transf (AST/SGOT) 20, Alanine Aminotransferase (ALT/SGPT) 19, Alkaline Phosphatase 77, Total Protein 7.7, Albumin 4.2, Triglycerides Level 147, Cholesterol Level 195, LDL Cholesterol Direct 102, VLDL Cholesterol 29, HDL Cholesterol 64H 07/01/18 15:48: White Blood Count 15.1H, Red Blood Count 3.64L, Hemoglobin 10.9L, Hematocrit 34L , Mean Corpuscular Volume 93, Mean Corpuscular Hemoglobin 30, Mean Corpuscular Hemoglobin Concent 32, Red Cell Distribution Width 14.2, Platelet Count 217, Mean Platelet Volume 9.7 Conclusion/Plan Firm pressure has been held above the access site. Bedside groin and abd u/s has shown intraabdominal blood that appears coagulated. iv fluids have and pressors have been given and are being given. Blood is being given after type and cross. Two peripheral lines are running. We have asked Dr Farias in intensive care consult. Central line has been initiated. We have again reviewed abd aortic and peripheral angio done immediately prior to sheath removal. This does not show any obvious site of active bleed. I have a spoken with Dr Reeves and Dr Kamara of the CV surgical service at [facility]. They have accepted the pt in transfer. We have made every effort to stabilize further prior to transfer. Due to bad weather, transfer cannot be by air ambulance. We have called the ground ambulance Time with patient at her bedside: 1540 to 1740 PEREZ QUINTERO MD FACP FAC CCDS Jul 01, 2018 17:06
--- NOTE | 2018-07-01 17:15 | NUR ---
3RD UNIT OF PRBC'S INITIATED. INFUSING AT 250ML/HR. INCREASED TO 500ML/HR. INFUSION CONT TO TRANSFER. 4 UNITS OF PRBC'S IN [place] FOR STAND-BY ON TRANSPORT.
--- NOTE | 2018-07-01 17:29 | Pulmonary Consultation ---
History of Present Illness History of Present Illness Date of Consultation 07/01/18 17:25 Time Seen by Provider: 17:28 Date of Admission History of Present Illness 78yo s/p cardiac cath. Pt developed retroperitoneal bleed after procedure. PT is currently hypotensive. Nursing is at bedside holding pressure. Allergies and Home Medications Allergies Coded Allergies: adenosine (Verified Adverse Reaction, Mild, 01/02/17) FLUSHED/NAUSEA Home Medications Alprazolam 0.25 Mg Tablet, 0.25 MG PO DAILY, (Reported) Aspirin 81 Mg Tab.chew, 81 MG PO DAILY Prescribed by: AAKASH LAZCANO on 01/04/17 0836 Clopidogrel Bisulfate 75 Mg Tablet, 75 MG PO DAILY, (Reported) Cyanocobalamin (Vitamin B-12) 1,000 Mcg Tablet, 1,000 MCG PO monthly, (Reported) Dapagliflozin Propanediol 5 Mg Tablet, 5 MG PO DAILY, (Reported) Furosemide 40 Mg Tablet, 40 MG PO DAILY, (Reported) Hydrocodone/Acetaminophen 1 Each Tablet, 1 TAB PO Q4H PRN for PAIN-MODERATE, ( Reported) Lisinopril 5 Mg Tablet, 5 MG PO DAILY@0900 Prescribed by: AAKASH LAZCANO on 01/04/17 0836 Metoprolol Succinate 50 Mg Tab.er.24h, 50 MG PO DAILY Prescribed by: AAKASH LAZCANO on 01/04/17 0836 Nortriptyline HCl 25 Mg Capsule, 25 MG PO HS, (Reported) Pantoprazole Sodium 40 Mg Tablet.dr, 40 MG PO DAILY, (Reported) Rosuvastatin Calcium 40 Mg Tablet, 40 MG PO HS, (Reported) Topiramate 25 Mg Tablet, 25 MG PO BID, (Reported) Past Imtrtia-Jpabhp-Yqgzhb Hx Patient Social History Alcohol Use: Denies Use Recreational Drug Use: No Smoking Status: Former Smoker Type Used: Cigarettes Former Smoker, Quit: Dec 26, 2009 2nd Hand Smoke Exposure: No Recent Foreign Travel: No Contact w/Someone Who Travel: No Recent Hopitalizations: No Immunizations Up To Date Date of Pneumonia Vaccine: Jan 06, 2013 Date of Influenza Vaccine: Dec 17, 2016 Seasonal Allergies Seasonal Allergies: No Past Medical History Surgeries: Yes (STENTS X5, CAROTID) Coronary Stent Respiratory: Yes Cardiac: Yes Coronary Artery Disease, Heart Murmur, High Cholesterol, Hypertension Neurological: No Reproductive Disorders: No Sexually Transmitted Disease: No HIV/AIDS: No Genitourinary: Yes Kidney Stones Gastrointestinal: Yes (ABDOMINAL PAIN) Chronic Diarrhea Musculoskeletal: Yes Arthritis, Chronic Back Pain Endocrine: Yes HEENT: No Loss of Vision: Denies Hearing Impairment: Denies Cancer: No Psychosocial: Yes Anxiety Integumentary: No Blood Disorders: No Adverse Reaction/Blood Tranf: No Family Medical History Arthritis 19 FATHER 19 MOTHER G8 BROTHER G8 SISTER G8 SISTER Cardiovascular disease 19 MOTHER Diabetes mellitus 19 MOTHER G8 SISTER G8 SISTER Myocardial infarction G8 SISTER Parkinson's disease G8 SISTER No Pertinent Family Hx Review of Systems Time Seen by Provider: 17:27 Sepsis Event Evaluation Height, Weight, BMI Height: 5'1.00" Weight: 192lbs. 7.0oz. 87.668202zw; 36.4 BMI Method:Stated Exam Exam Vital Signs Date Time Temp Pulse Resp B/P (MAP) Pulse Ox O2 Delivery O2 Flow Rate FiO2 07/01/18 10:47 97.5 88 16 150/71 (97) 94 Room Air Height & Weight Height: 5'1.00" Weight: 192lbs. 7.0oz. 87.988785lg; 36.4 BMI Method:Stated General Appearance: Anxious, Moderate Distress, Obese HEENT: PERRL/EOMI, Normal ENT Inspection, Pharynx Normal Neck: Full Range of Motion, Normal Inspection, Non Tender, Supple Respiratory: Chest Non Tender, No Accessory Muscle Use, No Respiratory Distress , Decreased Breath Sounds, Other (fair to good bilat air entry) Cardiovascular: Regular Rate, Rhythm, Systolic Murmur (soft Orly AT card base) Capillary Refill: Less Than 3 Seconds Gastrointestinal: normal bowel sounds, non tender, soft, no organomegaly, no pulsatile mass Extremity: Normal Capillary Refill, Normal Inspection, Other (chronic nonpitting edema) Neurologic/Psychiatric: Oriented x3, Other (able to move all limbs equally) Skin: Normal Color, Warm/Dry Lymphatic: No Adenopathy Results Lab Laboratory Tests 07/01/18 11:07 07/01/18 15:48 Assessment/Plan Assessment/Plan S/p cath Anemia with iatrogenic retroperitoneal bleed -PT is transferring to [place] hypotension secondary to acute blood loss -Will place central line for central access Leukocytosis - reactive MEENA ZAMORANO DO Jul 01, 2018 17:29
--- NOTE | 2018-07-01 17:30 | Pulmonary Procedures ---
Pulmonary Procedures Date of Procedure Date of Service: Jul 01, 2018 Lumen: triple (US guided) Central Line Procedure: betadine prep, sterile drapes applied, sterile dressing applied Position: internal jugular (R) Anesthesia: Lidocaine Volume Anesthetic (ccs): 5 Complications: none Post Position: sutured, good blood return, position confirmed w/ CXR MEENA ZAMORANO DO Jul 01, 2018 17:30
--- NOTE | 2018-07-01 17:56 | Diagnostic Imaging Report ---
Indication: Central line placement. Time of exam: 5:29 PM Correlation is made with prior study 11/21/2017. A right IJ line has tip overlying the SVC. There is no pneumothorax. Heart size is stable. No effusion. Impression: Right IJ line placement, as described. Dictated by: Dictated on workstation # [id number]
[2018-07-01] MEDS ORDERED: ATROPINE INJECTION 1 MG/1 ML SDV IJ ONE (19:00)
[2018-07-01] MEDS ORDERED: NS IV 1000 ML 1,000 ML IV PRN (19:00)
[2018-07-01] MEDS ORDERED: DOPamine DRIP 250 ML IV SCH (19:00)
[2018-07-01] MEDS ORDERED: EPINEPHrine INJECTION 1 MG/ML AMP IV ONE (19:00)
[2018-07-01] MEDS ORDERED: LACTATED RINGERS 1,000 ML IV SCH (19:00)
--- NOTE | 2018-07-01 21:08 | CARDIAC CATHETERIZATION ---
DATE OF SERVICE: 07/01/2018 CARDIAC CATHETERIZATION AND PERIPHERAL ANGIOGRAPHY REPORT HISTORY OF PRESENT ILLNESS: The patient is a 78-year-old lady, who is known to have coronary artery disease and has had previous coronary interventions. She has had recurrent symptoms of chest discomfort. Cardiac catheterization was carried out today after having obtained an informed consent. Perioperative hydration was carried out to reduce risk of contrast nephropathy, given that she has chronic kidney disease stage II-III. DESCRIPTION OF PROCEDURE: She was brought to the cardiac catheterization laboratory in a fasting state. Right groin was prepared and draped in the usual sterile fashion. Lidocaine 1% was used for local anesthesia. Modified Seldinger technique was used to advance a 5-Guatemalan sheath in right femoral artery. A 5-Guatem[place] JL4 catheter was used for left coronary angiography. A 5-Guatem[place] JR4 catheter was used for right coronary angiography. Engagement of the coronary artery was resulting in some pressure damping. We gave 150 mcg of intracoronary nitroglycerin, which resolved spasm in the proximal right coronary artery. Overall, she tolerated the procedure well. ABDOMINAL AORTIC ANGIOGRAPHY: We had had some difficulty with advancement across the right common iliac artery and in the lower abdominal aorta. We, therefore, carried out abdominal aortic and peripheral angiography. Informed consent was obtained from patient's because the patient herself had received sedatives. We carried out abdominal aortic angiography by placing the pigtail catheter at the level of L1. This shows abdominal aortic calcification and ectasia of the infrarenal abdominal aorta. The aortoiliac bifurcation is intact. Renal arteries are identified. Right renal artery does not exhibit any significant disease. Left renal artery shows 50% proximal stenosis. BILATERAL LEG ARTERY ANGIOGRAPHY: Bilateral leg artery angiography indicates approximately 70% stenosis in the mid portion of the right common iliac artery with aneurysmal dilatation of the iliac artery before and after the stenosis. The left and the right external and internal iliac arteries are identified and are intact. The proximal portions of the right internal and external iliac arteries show aneurysmal dilatation. The common femoral arteries and the superficial femoral arteries and the deep femoral arteries are intact on both sides. The right superficial femoral artery has qhcv-ih-jmpawmpc distal disease. The popliteal arteries are intact on both sides. Both popliteal arteries trifurcate with apparently good distal runoff. CORONARY ARTERY ANGIOGRAPHY: Diffuse coronary calcification is present. Left main coronary artery does not exhibit significant obstructive disease. Left anterior descending and left circumflex arteries have diffuse tepf-pf-fyndocfq disease. There are patent stents in the left anterior descending. The site of previous balloon angioplasty in the distal left anterior descending artery is intact without significant restenosis. Right coronary artery is dominant. It has diffuse calcification and 50% ostial stenosis. LEFT VENTRICULAR ANGIOGRAPHY: Left ventricular angiography was carried out in the right anterior oblique projection. Global left ventricular systolic function is well preserved. Left ventricular ejection fraction is 60%-65%. HEMODYNAMICS: Left ventricular end-diastolic pressure following coronary angiography was 15 mmHg. There is no significant pressure gradient pullback across the aortic valve. The ascending aortic pressure was 154/65 with a mean of 101 mmHg. CONCLUSIONS: 1. Coronary artery disease, hiqq-fe-ntimvkwn, including 50% ostial stenosis of the right coronary artery and diffuse wdos-ly-sgesargx disease of all coronary vessels. There are patent stents in the left anterior descending. They are known to be Promus 2.5 x 23 (placed in 2009) and Promus 3.5 x 28 (placed in 2008). 2. Normal global left ventricular systolic function with an ejection fraction of 60%-65%. 3. Uqsu-oh-eegcssmn elevation of left ventricular end-diastolic pressure. 4. Abdominal aortic calcification and ectasia. 5. 50% stenosis of the left renal artery. 6. 70% stenosis of the mid portion of the right common iliac with aneurysmal dilatation of the iliac system just prior to and after the stenosis. Pressure gradient across this lesion is 15-20 mmHg. DISCUSSION AND RECOMMENDATIONS: Based on results of the study, it appears appropriate to continue a conservative approach. She is currently not describing any leg claudication. The pressure gradient across the common iliac artery lesion is relatively moderate. Stenting this lesion would be relatively complex because there are significant aneurysmal dilatations of the iliac vessels prior to and after the stenoses. We have advised outpatient followup. Risk factor modification has been reviewed. Job ID: [id number] DocumentID: [id number] Dictated Date: 07/01/2018 14:28:37 [employer] General Sales Manager Date: 07/01/2018 19:27:33 Dictated By: AMOL QUINTERO MD, MA, FACP, FACC,
== END 2018-07-01 17:55 | disposition short-term general hospital (02) ==
LOC: CATH 10:35
PROVIDERS: ATTEND Internal Medicine Cardiovascular Disease
DX: I25.10 Atherosclerotic heart disease of native coronary artery without angina pectoris (principal); K91.62 Intraoperative hemorrhage and hematoma of a digestive system organ or structure complicating other procedure; D62 Acute posthemorrhagic anemia; I70.0 Atherosclerosis of aorta; I70.1 Atherosclerosis of renal artery; I70.201 Unspecified atherosclerosis of native arteries of extremities, right leg; I72.3 Aneurysm of iliac artery; I12.9 Hypertensive chronic kidney disease with stage 1 through stage 4 chronic kidney disease, or unspecified chronic kidney disease; N18.3 Chronic kidney disease, stage 3 (moderate); E11.22 Type 2 diabetes mellitus with diabetic chronic kidney disease; I27.20 Pulmonary hypertension, unspecified; R01.1 Cardiac murmur, unspecified; E78.00 Pure hypercholesterolemia, unspecified; K52.9 Noninfective gastroenteritis and colitis, unspecified; F41.9 Anxiety disorder, unspecified; K21.9 Gastro-esophageal reflux disease without esophagitis; E66.2 Morbid (severe) obesity with alveolar hypoventilation; Z68.36 Body mass index [BMI] 36.0-36.9, adult; Z95.5 Presence of coronary angioplasty implant and graft; Z87.891 Personal history of nicotine dependence; Z79.82 Long term (current) use of aspirin; Z79.899 Other long term (current) drug therapy
CPT/HCPCS: 36415; 36430; 71045; 75625; 75716; 76999; 80053; 80061; 85027; 85610; 85730; 86850; 86900; 86901; 86920; 87081; 93458

== ENCOUNTER → 2018-07-16 | Outpatient (CLI) | payer MEDICARE ==
[~2018-07-16] MED LIST changes: +CYAN100088 PO
--- NOTE | 2018-07-16 13:01 | Diagnostic Imaging Report ---
INDICATION: DYSPNEA; SHORTNESS OF BREATH COMPARISON: 07/01/2018 FINDINGS: Frontal and lateral views of the chest demonstrate normal heart size and pulmonary vascularity. The lungs are clear. There are no signs of infiltrate, pleural effusions or pneumothoraces. The visualized osseous structures show no acute abnormalities. There is calcified aortic atherosclerosis. IMPRESSION: 1. No acute process. No signs of infiltrates, effusions or pneumothoraces. Dictated by: Dictated on workstation # [id number]
== END ==
LOC: RAD 11:34
DX: R06.02 Shortness of breath (principal)
CPT/HCPCS: 71046

== ENCOUNTER → 2018-10-14 | Outpatient (CLI) | payer MEDICARE ==
[~2018-10-14] MED LIST changes: -ROSU40TA22 PO; +ROSU40TA23 PO
--- NOTE | 2018-10-14 13:06 | Diagnostic Imaging Report ---
INDICATION: Diabetic ulcer on leg, approximately 3 weeks after dog jumped on leg. TECHNIQUE: AP and lateral views of the right tibia and fibula CORRELATION STUDY: None FINDINGS: The tibia and fibula are intact. There is no evidence for acute fracture. No significant erosion or periosteal reaction. Limited visualized portions of the knee and ankle are unremarkable. There is some asymmetric soft tissue edema about the lower leg. No definitive foreign body. No abnormal soft tissue gas collections. IMPRESSION: 1.Negative for acute bony abnormality of the leg. 2. Some generalized edema about the lower leg. If continued concern for potential underlying infectious etiology, MRI would be recommended preferably with contrast. Dictated by: Dictated on workstation # [id number]
== END ==
LOC: RAD 12:07
PROVIDERS: ATTEND Nurse Practitioner Family
DX: E11.622 Type 2 diabetes mellitus with other skin ulcer (principal); L98.499 Non-pressure chronic ulcer of skin of other sites with unspecified severity
CPT/HCPCS: 73590

== ENCOUNTER → 2019-04-10 | Outpatient (CLI) | payer MEDICARE ==
[~2019-04-10] MED LIST changes: +HOLD METFORMIN - RECEIVED CONTRAST 20 ML VIAL IV SCH; +IOHEXOL 350 MG/ML 100 ML (OMNIPAQUE 350) VIAL IV ONE; -METO-370 PO; +METO50TA7 PO; +NS 100 ML (IVPB) BAG IV ONE
--- NOTE | 2019-04-10 16:56 | Diagnostic Imaging Report ---
PROCEDURE: CT abdomen and pelvis with and without contrast. TECHNIQUE: Precontrast acquisitions were acquired through the abdomen and pelvis. Multiple contiguous axial images were obtained through the abdomen and pelvis after the administration of intravenous contrast. Auto Exposure Controls were utilized during the CT exam to meet ALARA standards for radiation dose reduction. INDICATION: Acute abdominal pain. COMPARISON: 07/04/2014 FINDINGS: Included portions of the lung bases are clear. There is prominent pericardial fat. Note is also made of advanced calcified coronary atherosclerosis. CT ABDOMEN: There are a few scattered colonic diverticuli, but no CT evidence of acute diverticulitis. Normal pancreas is identified. Small bowel loops are nondistended. Multiple subcentimeter hypoenhancing renal foci are identified bilaterally. These are too small to adequately characterize on this exam. Otherwise, the kidneys, adrenal glands, spleen, pancreas, and liver have a normal CT appearance. No abnormal mesenteric or retroperitoneal adenopathy is seen. There is no loculated fluid collection, free fluid, nor free air. Advanced calcified aortic and arterial atherosclerosis is noted. Osseous structures show no acute abnormalities. CT PELVIS: Urinary bladder is grossly unremarkable. There is no loculated fluid collection, free fluid, nor free air within the pelvis. No abnormal pelvic adenopathy is seen. Note is made of focal prominence of the endometrium where it measures 1 cm in AP thickness. Osseous structures show no acute abnormalities IMPRESSION: 1. No acute abnormalities are seen within the abdomen or pelvis. 2. Hypoenhancing subcentimeter bilateral renal foci, which may be on the basis of small cysts, but cannot be adequately characterized on this exam. 3. Focal hypodense prominence of the endometrial stripe. This is considered abnormal in a patient of this age. This does raise concern for potential endometrial polyp or possible mass. Correlation with pelvic sonogram is recommended. Dictated by: Dictated on workstation # [id number]
== END ==
LOC: RAD 15:08
DX: N28.89 Other specified disorders of kidney and ureter (principal); R10.9 Unspecified abdominal pain
CPT/HCPCS: 74178

== ENCOUNTER → 2019-04-23 | Outpatient (CLI) | payer MEDICARE ==
[~2019-04-23] MED LIST changes: -HOLD METFORMIN - RECEIVED CONTRAST 20 ML VIAL IV SCH; -IOHEXOL 350 MG/ML 100 ML (OMNIPAQUE 350) VIAL IV ONE; -NS 100 ML (IVPB) BAG IV ONE
--- NOTE | 2019-04-23 15:21 | Diagnostic Imaging Report ---
PROCEDURE: US Non-ob pelvis comp/trans. TECHNIQUE: Multiple real-time grayscale images were obtained of the pelvis in various projections endovaginally. Transabdominal imaging was also performed. INDICATION: Abnormal CT abdomen/pelvis exam. FINDINGS: There are no prior ultrasound examinations available for comparison. The CT abdomen/pelvis exam of 04/10/2019 however did note a focal hypodense prominence of the endometrial stripe of the uterus. The possibility of an endometrial polyp or mass was raised. On this exam, the endometrial lining is thickened for a postmenopausal patient. The endometrial lining measures 9 mm (normal postmenopausal endometrial thickness 5 mm or less). There is also a small amount of nonspecific fluid within the endometrium, but no discrete mass evident within the endometrium however. There is a 0.8 x 0.3 cm calcification within the uterus. I do suspect that this is a small calcified uterine fibroid. A few other even smaller calcifications are suspected. The uterus itself is not enlarged measuring 6.3 x 2.9 x 4.3 cm. Neither ovary is visualized. There is no solid pelvic mass or free fluid collection evident. IMPRESSION: 1. The endometrial lining is slightly thickened and there is a small amount of nonspecific fluid within the endometrium. If further study is desired, then hysteroscopy would be recommended. If there is no intervention at this time, then a short-term (4-6 weeks) follow-up ultrasound exam would be recommended. 2. There do appear to be a few small calcified uterine fibroids. 3. Neither ovary is identified. Dictated by: Dictated on workstation # [id number]
== END ==
LOC: RAD 10:00
DX: R93.89 Abnormal findings on diagnostic imaging of other specified body structures (principal)
CPT/HCPCS: 76830; 76856

== ENCOUNTER → 2020-01-29 | Outpatient (CLI) | payer MEDICARE ==
[~2020-01-29] MED LIST changes: +ACHYD1T PO; +ALPR.25T PO; -ALPR0.254 PO; -HYDR-3820 PO; -PANT40TA3 PO; +PANT40TA52 PO
--- NOTE | 2020-01-29 11:34 | Diagnostic Imaging Report ---
INDICATION: Right hip pain Coned AP and frog-leg views of right hip are obtained. No acute fracture or malalignment is identified. Calcification is seen superior to the greater trochanter which may be related to previous tendon injury. There is no abnormal lytic or sclerotic focus. IMPRESSION: No acute right hip abnormality is identified. Dictated by: Dictated on workstation # [id number]
--- NOTE | 2020-01-29 11:36 | Diagnostic Imaging Report ---
EXAMINATION: Lumbar spine radiographs, 3 views. COMPARISON: June 26, 2017. HISTORY: 80-year-old female, hip and low back pain. FINDINGS: There is lumbar levocurvature. There is a compression deformity of L1 which is unchanged. There is no identified new compression deformity or other fracture. There is severe disc height loss at L2-L3, L3-L4, and L4-L5. There is moderate disc height loss at L1-L2. There are facet degenerative changes, left greater than right at L4-L5 and L5-S1. The sacroiliac joints are grossly unremarkable in appearance. There are atherosclerotic calcifications. IMPRESSION: 1. Remote prior compression deformity of L1. 2. Multilevel severe disc and facet degenerative changes of the lumbar spine with lumbar levocurvature. Dictated by: Dictated on workstation # [id number]
== END ==
LOC: RAD 10:47
DX: M51.36 Other intervertebral disc degeneration, lumbar region (principal); M51.06 Intervertebral disc disorders with myelopathy, lumbar region
CPT/HCPCS: 72100; 73502

== ENCOUNTER → 2020-09-15 | Outpatient (CLI) | payer MEDICARE ==
[~2020-09-15] MED LIST changes: -LISI-556 PO; +LISI-729 PO
--- NOTE | 2020-09-15 13:41 | Diagnostic Imaging Report ---
INDICATION: Fall and back pain. TIME OF EXAM: 1:26 p.m. Three views of the lumbar spine were obtained. There is slight left convexity lumbar scoliotic curvature. Compression fracture deformity involving the L1 vertebral body appears similar to x-rays from 01/29/2020. Remaining lumbar vertebrae show normal stature. There is severe multilevel degenerative disc disease with disc space narrowing and marginal spurring. Abdominal aorta is heavily calcified. IMPRESSION: Severe lumbar spondylosis with chronic compression fracture deformity of L1 vertebral body. No new compression fracture is detected. Dictated by: Dictated on workstation # [id number]
--- NOTE | 2020-09-15 13:42 | Diagnostic Imaging Report ---
INDICATION: Fall and left hip pain. TIME OF EXAM: 1:27 p.m. FINDINGS: Two views of the left hip demonstrate normal femoroacetabular alignment. The joint space is well maintained. Femoral head and neck are intact. No fractures are seen. IMPRESSION: No acute bony abnormality is detected. Dictated by: Dictated on workstation # [id number]
== END ==
LOC: RAD 13:07
DX: M47.816 Spondylosis without myelopathy or radiculopathy, lumbar region (principal); M48.56XA Collapsed vertebra, not elsewhere classified, lumbar region, initial encounter for fracture; W19.XXXA Unspecified fall, initial encounter
CPT/HCPCS: 72100; 73502

== ENCOUNTER → 2020-09-20 | Outpatient (CLI) | payer MEDICARE ==
--- NOTE | 2020-09-20 13:06 | Diagnostic Imaging Report ---
Clinical indication: Patient chronic low back problems and pain. Exam: MRI of the lumbar spine performed without IV contrast. Sagittal T2, sagittal T1, sagittal T2 fat-sat, and axial T2. Comparison: MRI of the lumbar spine without contrast dated 07/11/2017. Findings: There is levoscoliosis of the lumbar spine again noted. There is high T2, low T1 signal involving the T11 vertebra. There is interval development of endplate irregularity and roughly 20% loss of height of the inferior endplate region. There is also adjacent minimal compression of the posterior aspect of the upper T12 endplate with associated marrow edema. There is increased T2 signal involving the disk. There is minimal prevertebral the right paravertebral soft tissue increased T2 signal/inflammation. Stable compression fracture deformity of the inferior endplate of the L1 vertebra. There is interval development of a roughly 40-50% compression fracture deformity of the inferior endplate of the L5 vertebra. There is marrow edema involving the lower aspect of the L5 vertebra. There is minimal prevertebral increased T2 signal/swelling. There is Modic type II degenerative signal changes seen from the L1 through upper L5 level. The visualized portions of the distal thoracic spinal cord, conus medullaris, and cauda equina nerve roots are unremarkable. The conus medullaris tip is seen at the upper L2 vertebral body level. There are hypertrophic spurs and facet arthropathy involving the lumbar spine. T11-T12: There is moderate bilateral facet arthropathy which is slightly progressed. There are posterior vertebral body spurs which has progressed. There is moderate central canal stenosis and mild to moderate bilateral neural foramen narrowing which has progressed. T12-L1: There is a subtle posterior disk bulge which has minimally decreased in interim. There is mild to moderate bilateral facet arthropathy and ligamentum flavum buckling. There is minimal central canal narrowing which is slightly improved. There is mild right neural foramen narrowing and no significant left neural foramen narrowing. L1-L2: Is no significant change to the diffuse disk bulge with disk herniations ex spurs which extend posteriorly and into the foraminal regions bilaterally. There is moderate bilateral facet arthropathy again seen. There is mild to moderate central canal stenosis and severe right neural foramen narrowing and moderate to severe left neural foramen narrowing which has not significantly changed. L2-L3: There is no significant change to the diffuse disk bulge with severe loss of disk space height and endplate irregularity. There is moderate bilateral facet arthropathy again seen. There is mild central canal narrowing, severe right neural foramen narrowing and moderate left neural foramen narrowing which is stable. L3-L4: There is severe right facet arthropathy and mild to moderate left facet arthropathy. There is severe loss of disk space height and endplate irregularity. There is severe central canal stenosis, severe right neural foramen narrowing and mild to moderate left neural foramen narrowing which is not significantly changed. L4-L5: There is a diffuse disk bulge with moderate to severe loss of disk space height and endplate irregularity. There is severe bilateral facet arthropathy/hypertrophy and ligament flavum buckling. There is severe central canal stenosis, severe left neural foramen narrowing and moderate to severe right neural foramen narrowing which has not significantly changed. L5-S1: There is severe left facet arthropathy/hypertrophy again seen and moderate right facet arthropathy. There is no significant central canal narrowing. There is mild right neural foramen narrowing and moderate to severe left neural foramen narrowing which has progressed possibly from facet arthropathy. IMPRESSION: 1: There is marrow edema and slight loss of height involving the T11 vertebra. There is also interval development of endplate irregularity involving the inferior T11 endplates and upper T12 endplate. There is high T2 signal within the intervertebral discs and mild prevertebral soft tissue swelling/inflammation. These findings are nonspecific. Considerations may include a compression fracture of the inferior T11 endplate with degenerative disease changes. Infectious process such as osteomyelitis discitis should also be excluded. MRI of the lumbar spine with and without contrast and 4-6 weeks is suggested to evaluate for interval change in this finding. 2: There is interval development of a mild compression deformity inferior endplate of the L5 vertebra with marrow edema which may represent an acute or subacute fracture. There is no retropulsed component. 3: There is slight progression of degenerative facet arthropathy and bilateral neural foramen narrowing at the L5-S1 level. 4: There is slight decreased size of the T12-L1 posterior disk bulge, and slight improved diameter of the central canal. 5: Otherwise, there is no significant change involving the multilevel severe lumbar spine degenerative disease which is described above. Report was faxed to office of Dr. Wong by tyra at 1:05PM. Dictated by: Dictated on workstation # [id number]
== END ==
LOC: RAD 11:12
DX: M47.814 Spondylosis without myelopathy or radiculopathy, thoracic region (principal); M47.815 Spondylosis without myelopathy or radiculopathy, thoracolumbar region; M47.816 Spondylosis without myelopathy or radiculopathy, lumbar region; M47.817 Spondylosis without myelopathy or radiculopathy, lumbosacral region; M51.25 Other intervertebral disc displacement, thoracolumbar region; M51.26 Other intervertebral disc displacement, lumbar region; M48.04 Spinal stenosis, thoracic region; M48.061 Spinal stenosis, lumbar region without neurogenic claudication; M48.07 Spinal stenosis, lumbosacral region; M43.8X6 Other specified deforming dorsopathies, lumbar region
CPT/HCPCS: 72148

== ENCOUNTER → 2020-10-04 | Outpatient (CLI) | payer MEDICARE ==
--- NOTE | 2020-10-04 15:41 | Diagnostic Imaging Report ---
INDICATION: Left ankle pain AP, oblique, and lateral views of the left ankle are obtained. There is no prior study for comparison. There is no definite acute fracture. There is some irregularity of the medial malleolus of the distal tibia which is probably chronic. Joint spaces are unremarkable. IMPRESSION: Chronic appearing irregularity in the medial malleolus of the distal tibia with no acute appearing abnormality. Dictated by: Dictated on workstation # [id number]
== END ==
LOC: RAD 11:55
DX: M25.572 Pain in left ankle and joints of left foot (principal)
CPT/HCPCS: 73610

== ENCOUNTER → 2020-11-17 | Outpatient (CLI) | payer MEDICARE ==
[2020-11-17 15:10] LABS: BASOPHILS % (AUTO) 1 % (0-10); EOSINOPHILS # (AUTO) 0.1 10^3/uL (0.0-0.3); EOSINOPHILS % (AUTO) 2 % (0-10); HEMATOCRIT 41 % (35-52); HEMOGLOBIN 12.6 g/dL (11.5-16.0); LYMPHOCYTES # (AUTO) 1.9 X 10^3 (1.0-4.0); LYMPHOCYTES % (AUTO) 29 % (12-44); MEAN CORPUSCULAR HEMOGLOBIN 31 pg (25-34); MEAN CORPUSCULAR HGB CONC 31 g/dL (32-36); MEAN CORPUSCULAR VOLUME 99 fL (80-99); MEAN PLATELET VOLUME 9.1 fL (9.0-12.2); MONOCYTES # (AUTO) 0.7 X 10^3 (0.0-1.0); MONOCYTES % (AUTO) 10 % (0-12); NEUTROPHILS # (AUTO) 3.7 X 10^3 (1.8-7.8); NEUTROPHILS % (AUTO) 57 % (42-75); PLATELET COUNT 277 10^3/uL (130-400); WHITE BLOOD COUNT 6.5 10^3/uL (4.3-11.0)
[2020-11-17 15:24] LABS: ALBUMIN 3.9 GM/DL (3.2-4.5); BILIRUBIN,TOTAL 0.4 MG/DL (0.1-1.0); CALCIUM 10.1 MG/DL (8.5-10.1); CREATININE SERUM 1.02 MG/DL (0.60-1.30); POTASSIUM 4.6 MMOL/L (3.6-5.0); TOTAL PROTEIN 7.2 GM/DL (6.4-8.2)
== END ==
LOC: LAB 14:40
PROVIDERS: ATTEND Surgery
DX: I89.0 Lymphedema, not elsewhere classified (principal); E11.622 Type 2 diabetes mellitus with other skin ulcer; L97.212 Non-pressure chronic ulcer of right calf with fat layer exposed; E66.01 Morbid (severe) obesity due to excess calories; I70.232 Atherosclerosis of native arteries of right leg with ulceration of calf
CPT/HCPCS: 36415; 80053; 83036; 85025

== ENCOUNTER → 2020-11-17 | Outpatient (CLI) | payer MEDICARE | LOC: WOUNDCARE 12:48 | PROVIDERS: ATTEND Surgery | DX: I89.0 Lymphedema, not elsewhere classified (principal); E11.622 Type 2 diabetes mellitus with other skin ulcer; L97.212 Non-pressure chronic ulcer of right calf with fat layer exposed; E66.01 Morbid (severe) obesity due to excess calories; Z68.42 Body mass index [BMI] 45.0-49.9, adult | CPT/HCPCS: 11042; 11045; A6260; G0463 ==

== ENCOUNTER → 2020-11-24 | Outpatient (CLI) | payer MEDICARE | LOC: WOUNDCARE 11:37 | PROVIDERS: ATTEND Surgery | DX: I70.232 Atherosclerosis of native arteries of right leg with ulceration of calf (principal); I89.0 Lymphedema, not elsewhere classified; E11.622 Type 2 diabetes mellitus with other skin ulcer; L97.212 Non-pressure chronic ulcer of right calf with fat layer exposed; E66.01 Morbid (severe) obesity due to excess calories; E11.52 Type 2 diabetes mellitus with diabetic peripheral angiopathy with gangrene | CPT/HCPCS: 11042; G0463 ==

== ENCOUNTER → 2020-12-01 | Outpatient (CLI) | payer MEDICARE | LOC: WOUNDCARE 10:53 | PROVIDERS: ATTEND Surgery | DX: I70.232 Atherosclerosis of native arteries of right leg with ulceration of calf (principal); I96 Gangrene, not elsewhere classified; I89.0 Lymphedema, not elsewhere classified; E11.622 Type 2 diabetes mellitus with other skin ulcer; L97.212 Non-pressure chronic ulcer of right calf with fat layer exposed; E66.01 Morbid (severe) obesity due to excess calories; Z68.42 Body mass index [BMI] 45.0-49.9, adult | CPT/HCPCS: 11042; G0463 ==

== ENCOUNTER → 2020-12-07 | Outpatient (CLI) | payer MEDICARE | LOC: WOUNDCARE 11:02 | PROVIDERS: ATTEND Surgery | DX: I70.232 Atherosclerosis of native arteries of right leg with ulceration of calf (principal); I89.0 Lymphedema, not elsewhere classified; E11.622 Type 2 diabetes mellitus with other skin ulcer; L97.512 Non-pressure chronic ulcer of other part of right foot with fat layer exposed; E66.01 Morbid (severe) obesity due to excess calories; E11.52 Type 2 diabetes mellitus with diabetic peripheral angiopathy with gangrene | CPT/HCPCS: 11042; G0463 ==

== ENCOUNTER → 2020-12-13 | Outpatient (CLI) | payer MEDICARE | LOC: WOUNDCARE 12:58 | PROVIDERS: ATTEND Surgery | DX: I70.232 Atherosclerosis of native arteries of right leg with ulceration of calf (principal); E11.52 Type 2 diabetes mellitus with diabetic peripheral angiopathy with gangrene; I89.0 Lymphedema, not elsewhere classified; E11.622 Type 2 diabetes mellitus with other skin ulcer; L97.212 Non-pressure chronic ulcer of right calf with fat layer exposed; E66.01 Morbid (severe) obesity due to excess calories; Z68.42 Body mass index [BMI] 45.0-49.9, adult | CPT/HCPCS: 99214 ==

== ENCOUNTER → 2020-12-19 | Outpatient (CLI) | payer MEDICARE | LOC: WOUNDCARE 12:47 | PROVIDERS: ATTEND Family Medicine | DX: I70.232 Atherosclerosis of native arteries of right leg with ulceration of calf (principal); E11.52 Type 2 diabetes mellitus with diabetic peripheral angiopathy with gangrene; I89.0 Lymphedema, not elsewhere classified; E11.622 Type 2 diabetes mellitus with other skin ulcer; L97.212 Non-pressure chronic ulcer of right calf with fat layer exposed; E66.01 Morbid (severe) obesity due to excess calories; Z68.42 Body mass index [BMI] 45.0-49.9, adult | CPT/HCPCS: 99212 ==